=== PATIENT | male | born 1935 | race Caucasian/White ===

== ENCOUNTER 2017-08-04 09:39 | Inpatient (IN) | payer OTHER, BC, MEDICARE ==
[2017-08-04] MEDS: EZETIMIBE 10 MG TAB (ZETIA) PO (09:00)
[2017-08-04] MEDS: ROSUVASTATIN 10 MG TAB (CRESTOR) PO (09:00)
[2017-08-04 10:17] LABS: BASO % 0.2 % (0.0-1.0); EOS % 0.2 % (0.0-3.0); HEMATOCRIT 47.2 % (42.0-52.0); HEMOGLOBIN 15.4 g/dl (13.5-17.5); IMMATURE GRANULOCYTE % 0.5 % (0-3.0); LYMPH # 1.5 10^3/uL (1.5-4.5); LYMPH % 11.2 % (24.0-44.0); MEAN CORPUSCULAR HEMOGLOBIN 28.9 pg (27.0-33.0); MEAN CORPUSCULAR HGB CONC 32.6 g/dl (32.0-36.5); MEAN CORPUSCULAR VOLUME 88.7 fl (80.0-96.0); MONO % 7.8 % (0.0-5.0); NEUTROPHILS # 10.5 10^3/uL (1.8-7.7); NEUTROPHILS % 80.1 % (36.0-66.0); PLATELET COUNT, AUTOMATED 231 10^3/uL (150-450); RED BLOOD COUNT 5.32 10^6/uL (4.30-6.10); RED CELL DISTRIBUTION WIDTH 12.6 % (11.5-14.5); VENOUS HCO3 24.1 MEQ/L (23.0-27.0); VENOUS O2 SATURATION 49.4 % (60.0-80.0); VENOUS PARTIAL PRESSURE CO2 45.7 mmHg (38.0-50.0); VENOUS PARTIAL PRESSURE O2 28.4 mmHg (30.0-50.0); VENOUS STANDARD HCO3 21.5 MEQ/L; VENOUS TOTAL CO2 25.5 MEQ/L (24.0-28.0); WHITE BLOOD COUNT 13.1 10^3/uL (4.0-10.0)
[2017-08-04] MEDS: NS 1,000 ML IV (10:24)
[2017-08-04 10:40] LABS: OSMOLALITY SERUM 302 MOSM/KG (280-301)
[2017-08-04 10:46] LABS: AMMONIA < 10 uMOL/L (<32)
[2017-08-04 10:48] LABS: LACTIC ACID SEPSIS PROTOCOL 1.5 MMOL/L (0.4-2.0)
[2017-08-04 10:49] LABS: ACETAMINOPHEN LEVEL < 2.0 UG/ML (10.0-30.0); ALBUMIN/GLOBULIN RATIO 0.79 (1.00-1.93); ALKALINE PHOSPHATASE 305 U/L (45-117); ALT/SGPT 11 U/L (12-78); ANION GAP 7 MEQ/L (8-16); AST/SGOT 18 U/L (7-37); BILIRUBIN,DIRECT 0.2 MG/DL (0.0-0.2); BILIRUBIN,TOTAL 0.6 MG/DL (0.2-1.0); BLOOD UREA NITROGEN 20 MG/DL (7-18); CALCIUM LEVEL 8.9 MG/DL (8.8-10.2); CARBON DIOXIDE LEVEL 26 MEQ/L (21-32); CHLORIDE LEVEL 104 MEQ/L (98-107); CPK CREATINE PHOSPHOKINASE 83 U/L (39-308); CREATININE FOR GFR 1.88 MG/DL (0.70-1.30); GLOMERULAR FILTRATION RATE 36.8 (>35); GLUCOSE, FASTING 271 MG/DL (70-100); POTASSIUM SERUM 4.6 MEQ/L (3.5-5.1); SALICYLATE LEVEL < 1.7 MG/DL (5.0-30.0); SODIUM LEVEL 137 MEQ/L (136-145); TOTAL PROTEIN 6.8 GM/DL (6.4-8.2)
[2017-08-04 10:51] LABS: ETHYL ALCOHOL (ETHANOL) < 0.003 % (0.000-0.010)
[2017-08-04 10:52] LABS: CK-MB VALUE MASS 7.1 NG/ML (<3.6); MB/CK RELATIVE INDEX 8.55 (< OR =4)
[2017-08-04 10:55] LABS: TROPONIN I 3.23 NG/ML (< 0.10)
[2017-08-04 10:56] LABS: THYROID STIMULATING HORMONE 0.571 uIU/ML (0.358-3.740)
[2017-08-04 11:12] LABS: KETONE, URINE AUTO RFX TRACE mg/dL (NEGATIVE); LEUKOCYTE ESTERASE UR AUTO RFX NEGATIVE (NEGATIVE); MUCUS, URINE RFX SMALL (NEGATIVE); NITRITE, URINE AUTO RFX NEGATIVE (NEGATIVE); RBC, URINE AUTO RFX 2 /HPF (0-3); SQUAM EPITHELIAL CELL UR AURFX 0 /HPF (0-6); WBC, URINE AUTO RFX 1 /HPF (0-3)
[2017-08-04 11:42] LABS: AMPHETAMINES LEVEL URINE NEGATIVE (NEGATIVE); BARBITURATES URINE NEGATIVE (NEGATIVE); BENZODIAZEPINES URINE NEGATIVE (NEGATIVE); CANNABINOIDS URINE NEGATIVE (NEGATIVE); COCAINE METABOLITE URINE NEGATIVE (NEGATIVE); METHADONE URINE NEGATIVE (NEGATIVE); OPIATES URINE NEGATIVE (NEGATIVE); PHENCYCLIDINE URINE NEGATIVE (NEGATIVE)
[2017-08-04] MEDS ORDERED: ASPIRIN 81 MG CHEW TABLET As Ordered (13:12)
[2017-08-04] MEDS: ASPIRIN 81 MG CHEW TABLET PO (13:23)
[2017-08-04 17:13] LABS: BEDSIDE GLUCOSE 294 MG/DL (83-110)
[2017-08-04 19:31] LABS: CHOLESTEROL LEVEL 153 MG/DL (<200); CHOLESTEROL RISK RATIO 4.935 (<5); CK-MB VALUE MASS 5.1 NG/ML (<3.6); CPK CREATINE PHOSPHOKINASE 67 U/L (39-308); HDL CHOLESTEROL 31 MG/DL (>40); MB/CK RELATIVE INDEX 7.61 (< OR =4); NON-HDL-C 122 MG/DL; TRIGLYCERIDES LEVEL 115 MG/DL (<150)
[2017-08-04 19:36] LABS: TROPONIN I 1.85 NG/ML (< 0.10)
[2017-08-04] MEDS ORDERED: DEXTROSE 50% 50 ML SYRINGE IV (20:00)
[2017-08-04] MEDS ORDERED: GLUCAGON FOR INJ 1 MG VIAL (J1610) SC (20:00)
[2017-08-04] MEDS ORDERED: GLUCOSE 4 GM CHEW TABLET PO (20:00)
[2017-08-04] MEDS: HumaLOG INSULIN (NovoLOG) PER UNIT SC (20:38)
[2017-08-04] MEDS: DABIGATRAN ETEXILATE 75 MG CAP (PRADAXA) PO (20:38)
[2017-08-04] MEDS: LEVEMIR (INSULIN DETEMIR) 1 UNITS/0.01ML SC (20:38)
[2017-08-04 21:06] LABS: BEDSIDE GLUCOSE 323 MG/DL (83-110)
[2017-08-05 03:13] LABS: HEMATOCRIT 42.7 % (42.0-52.0); HEMOGLOBIN 14.1 g/dl (13.5-17.5); MEAN CORPUSCULAR HEMOGLOBIN 29.1 pg (27.0-33.0); MEAN CORPUSCULAR VOLUME 88.2 fl (80.0-96.0); PLATELET COUNT, AUTOMATED 189 10^3/uL (150-450); RED BLOOD COUNT 4.84 10^6/uL (4.30-6.10); RED CELL DISTRIBUTION WIDTH 12.5 % (11.5-14.5)
[2017-08-05 03:42] LABS: ANION GAP 6 MEQ/L (8-16); BLOOD UREA NITROGEN 21 MG/DL (7-18); CALCIUM LEVEL 8.4 MG/DL (8.8-10.2); CARBON DIOXIDE LEVEL 24 MEQ/L (21-32); CHLORIDE LEVEL 108 MEQ/L (98-107); CK-MB VALUE MASS 3.9 NG/ML (<3.6); CPK CREATINE PHOSPHOKINASE 51 U/L (39-308); CREATININE FOR GFR 1.43 MG/DL (0.70-1.30); GLOMERULAR FILTRATION RATE 50.5 (>35); GLUCOSE, FASTING 154 MG/DL (70-100); MAGNESIUM LEVEL 2.1 MG/DL (1.8-2.4); MB/CK RELATIVE INDEX 7.64 (< OR =4); POTASSIUM SERUM 3.9 MEQ/L (3.5-5.1); SODIUM LEVEL 138 MEQ/L (136-145)
[2017-08-05 03:59] LABS: TROPONIN I 1.93 NG/ML (< 0.10)
[2017-08-05] MEDS: HumaLOG INSULIN (NovoLOG) PER UNIT SC ×4 (07:25→21:00)
[2017-08-05 07:31] LABS: BEDSIDE GLUCOSE 75 MG/DL (83-110)
[2017-08-05] MEDS: EZETIMIBE 10 MG TAB (ZETIA) PO (08:43)
[2017-08-05] MEDS: ASPIRIN 81 MG CHEW TABLET PO (08:43)
[2017-08-05] MEDS: DABIGATRAN ETEXILATE 75 MG CAP (PRADAXA) PO ×2 (08:43→21:25)
[2017-08-05 10:29] LABS: CK-MB VALUE MASS 2.6 NG/ML (<3.6); CPK CREATINE PHOSPHOKINASE 44 U/L (39-308)
[2017-08-05 10:35] LABS: TROPONIN I 1.57 NG/ML (< 0.10)
[2017-08-05 11:58] LABS: BEDSIDE GLUCOSE 211 MG/DL (83-110)
[2017-08-05 16:45] LABS: C REACTIVE PROTEIN QUANTITATIV 1.34 MG/DL (0.00-0.30)
[2017-08-05] MEDS: PREGABALIN 50 MG CAP (LYRICA) PO (18:25)
[2017-08-05 18:27] LABS: BEDSIDE GLUCOSE 383 MG/DL (83-110)
[2017-08-05 18:51] LABS: ERYTHROCYTE SEDIMENTATION RATE 41 mm/hr (0-20)
[2017-08-05 19:54] LABS: BEDSIDE GLUCOSE 233 MG/DL (83-110)
[2017-08-05] MEDS: ROSUVASTATIN 10 MG TAB (CRESTOR) PO (21:25)
[2017-08-05] MEDS: LEVEMIR (INSULIN DETEMIR) 1 UNITS/0.01ML SC (21:26)
[2017-08-06] MEDS ORDERED: SLF 3 ML SYR IV (04:00)
[2017-08-06 05:26] LABS: HEMATOCRIT 44.3 % (42.0-52.0); HEMOGLOBIN 14.6 g/dl (13.5-17.5); MEAN CORPUSCULAR HEMOGLOBIN 29.2 pg (27.0-33.0); MEAN CORPUSCULAR VOLUME 88.6 fl (80.0-96.0); PLATELET COUNT, AUTOMATED 203 10^3/uL (150-450); RED CELL DISTRIBUTION WIDTH 12.4 % (11.5-14.5); WHITE BLOOD COUNT 11.8 10^3/uL (4.0-10.0)
[2017-08-06 05:40] LABS: ANION GAP 4 MEQ/L (8-16); BLOOD UREA NITROGEN 20 MG/DL (7-18); CALCIUM LEVEL 8.9 MG/DL (8.8-10.2); CARBON DIOXIDE LEVEL 26 MEQ/L (21-32); CHLORIDE LEVEL 105 MEQ/L (98-107); CREATININE FOR GFR 1.42 MG/DL (0.70-1.30); GLOMERULAR FILTRATION RATE 50.9 (>35); GLUCOSE, FASTING 93 MG/DL (70-100); MAGNESIUM LEVEL 2.2 MG/DL (1.8-2.4); POTASSIUM SERUM 4.3 MEQ/L (3.5-5.1); SODIUM LEVEL 135 MEQ/L (136-145)
[2017-08-06] MEDS: SLF 3 ML SYR IV ×3 (05:55→22:04)
[2017-08-06] MEDS: HumaLOG INSULIN (NovoLOG) PER UNIT SC ×4 (09:15→21:00)
[2017-08-06] MEDS: ASPIRIN 81 MG CHEW TABLET PO (09:16)
[2017-08-06] MEDS: PREGABALIN 50 MG CAP (LYRICA) PO (09:16)
[2017-08-06] MEDS: EZETIMIBE 10 MG TAB (ZETIA) PO (09:16)
[2017-08-06] MEDS: DABIGATRAN ETEXILATE 75 MG CAP (PRADAXA) PO ×2 (09:16→21:54)
[2017-08-06 11:27] LABS: BEDSIDE GLUCOSE 319 MG/DL (83-110)
[2017-08-06 17:20] LABS: BEDSIDE GLUCOSE 214 MG/DL (83-110)
[2017-08-06] MEDS: ROSUVASTATIN 10 MG TAB (CRESTOR) PO (21:55)
[2017-08-06 22:05] LABS: BEDSIDE GLUCOSE 137 MG/DL (83-110)
[2017-08-06] MEDS: LEVEMIR (INSULIN DETEMIR) 1 UNITS/0.01ML SC (22:05)
[2017-08-07 05:26] LABS: HEMATOCRIT 41.6 % (42.0-52.0); HEMOGLOBIN 13.9 g/dl (13.5-17.5); MEAN CORPUSCULAR HEMOGLOBIN 29.5 pg (27.0-33.0); MEAN CORPUSCULAR HGB CONC 33.4 g/dl (32.0-36.5); MEAN CORPUSCULAR VOLUME 88.3 fl (80.0-96.0); PLATELET COUNT, AUTOMATED 184 10^3/uL (150-450); RED BLOOD COUNT 4.71 10^6/uL (4.30-6.10); RED CELL DISTRIBUTION WIDTH 12.4 % (11.5-14.5); WHITE BLOOD COUNT 12.6 10^3/uL (4.0-10.0)
[2017-08-07 05:40] LABS: ANION GAP 4 MEQ/L (8-16); BLOOD UREA NITROGEN 19 MG/DL (7-18); CALCIUM LEVEL 8.6 MG/DL (8.8-10.2); CARBON DIOXIDE LEVEL 27 MEQ/L (21-32); CHLORIDE LEVEL 104 MEQ/L (98-107); CREATININE FOR GFR 1.64 MG/DL (0.70-1.30); GLOMERULAR FILTRATION RATE 43.1 (>35); GLUCOSE, FASTING 154 MG/DL (70-100); MAGNESIUM LEVEL 2.2 MG/DL (1.8-2.4); POTASSIUM SERUM 4.5 MEQ/L (3.5-5.1); SODIUM LEVEL 135 MEQ/L (136-145)
[2017-08-07] MEDS: SLF 3 ML SYR IV ×3 (06:00→21:27)
[2017-08-07] MEDS: HumaLOG INSULIN (NovoLOG) PER UNIT SC ×4 (07:38→21:00)
[2017-08-07] MEDS: ASPIRIN 81 MG CHEW TABLET PO (09:39)
[2017-08-07] MEDS: EZETIMIBE 10 MG TAB (ZETIA) PO (09:39)
[2017-08-07] MEDS: DABIGATRAN ETEXILATE 75 MG CAP (PRADAXA) PO ×2 (09:39→21:27)
[2017-08-07] MEDS: NS 1,000 ML IV ×2 (09:40→21:27)
[2017-08-07] MEDS: PREGABALIN 50 MG CAP (LYRICA) PO (10:27)
[2017-08-07 11:51] LABS: BEDSIDE GLUCOSE 539 MG/DL (83-110)
[2017-08-07 12:39] LABS: BEDSIDE GLUCOSE CONFIRMATION 267 MG/DL (LESS THAN 200)
[2017-08-07 17:02] LABS: BEDSIDE GLUCOSE 239 MG/DL (83-110)
[2017-08-07 20:12] LABS: BEDSIDE GLUCOSE 243 MG/DL (83-110)
[2017-08-07] MEDS: ROSUVASTATIN 10 MG TAB (CRESTOR) PO (21:26)
[2017-08-07] MEDS: LEVEMIR (INSULIN DETEMIR) 1 UNITS/0.01ML SC (21:28)
[2017-08-08] MEDS: SLF 3 ML SYR IV ×3 (05:45→22:06)
[2017-08-08 05:50] LABS: HEMATOCRIT 41.3 % (42.0-52.0); HEMOGLOBIN 13.7 g/dl (13.5-17.5); MEAN CORPUSCULAR HEMOGLOBIN 28.5 pg (27.0-33.0); MEAN CORPUSCULAR HGB CONC 33.2 g/dl (32.0-36.5); PLATELET COUNT, AUTOMATED 190 10^3/uL (150-450); RED CELL DISTRIBUTION WIDTH 12.3 % (11.5-14.5); WHITE BLOOD COUNT 13.9 10^3/uL (4.0-10.0)
[2017-08-08 06:07] LABS: ANION GAP 7 MEQ/L (8-16); BLOOD UREA NITROGEN 21 MG/DL (7-18); CALCIUM LEVEL 8.3 MG/DL (8.8-10.2); CARBON DIOXIDE LEVEL 22 MEQ/L (21-32); CHLORIDE LEVEL 105 MEQ/L (98-107); CREATININE FOR GFR 1.44 MG/DL (0.70-1.30); GLOMERULAR FILTRATION RATE 50.1 (>35); GLUCOSE, FASTING 177 MG/DL (70-100); MAGNESIUM LEVEL 2.2 MG/DL (1.8-2.4); POTASSIUM SERUM 4.7 MEQ/L (3.5-5.1); SODIUM LEVEL 134 MEQ/L (136-145)
[2017-08-08] MEDS ORDERED: ISOVUE-300 61% 50ML VIAL (Q9967) As Ordered (06:23)
[2017-08-08] MEDS ORDERED: HEPARIN 1,000 UNITS/ML 10ML VIAL (FOR RADIOLOGY& DIALYSIS ONLY) As Ordered (06:23)
[2017-08-08] MEDS ORDERED: fentaNYL 100 MCG/2 ML INJECTION (J3010) As Ordered (06:23)
[2017-08-08] MEDS ORDERED: MIDAZOLAM INJ 2 MG/2 ML VIAL (J2250) As Ordered (06:23)
[2017-08-08] MEDS: HumaLOG INSULIN (NovoLOG) PER UNIT SC ×4 (07:30→21:00)
[2017-08-08] MEDS: DABIGATRAN ETEXILATE 75 MG CAP (PRADAXA) PO ×2 (10:04→22:05)
[2017-08-08] MEDS: EZETIMIBE 10 MG TAB (ZETIA) PO (10:04)
[2017-08-08] MEDS: ASPIRIN 81 MG CHEW TABLET PO (10:05)
[2017-08-08] MEDS: ENTRESTO 24-26MG TABLET (SACUBITRIL/VALSARTAN) PO ×2 (10:08→22:05)
[2017-08-08] MEDS: PREGABALIN 50 MG CAP (LYRICA) PO (10:12)
[2017-08-08 11:48] LABS: BEDSIDE GLUCOSE 252 MG/DL (83-110)
[2017-08-08] MEDS: CLOPIDOGREL 300 MG TAB (PLAVIX) PO (11:53)
[2017-08-08] MEDS: NS 1,000 ML IV (11:54)
[2017-08-08 16:42] LABS: BEDSIDE GLUCOSE 233 MG/DL (83-110)
[2017-08-08 21:34] LABS: BEDSIDE GLUCOSE 231 MG/DL (83-110)
[2017-08-08] MEDS: ROSUVASTATIN 10 MG TAB (CRESTOR) PO (22:05)
[2017-08-08] MEDS: LEVEMIR (INSULIN DETEMIR) 1 UNITS/0.01ML SC (22:06)
[2017-08-09] MEDS: NS 1,000 ML IV ×2 (00:48→13:30)
[2017-08-09] MEDS: SLF 3 ML SYR IV ×3 (05:51→21:41)
[2017-08-09 07:36] LABS: HEMATOCRIT 38.2 % (42.0-52.0); HEMOGLOBIN 12.7 g/dl (13.5-17.5); MEAN CORPUSCULAR HEMOGLOBIN 29.3 pg (27.0-33.0); MEAN CORPUSCULAR HGB CONC 33.2 g/dl (32.0-36.5); PLATELET COUNT, AUTOMATED 175 10^3/uL (150-450); RED BLOOD COUNT 4.34 10^6/uL (4.30-6.10); RED CELL DISTRIBUTION WIDTH 12.5 % (11.5-14.5); WHITE BLOOD COUNT 13.2 10^3/uL (4.0-10.0)
[2017-08-09 07:59] LABS: ANION GAP 5 MEQ/L (8-16); BLOOD UREA NITROGEN 19 MG/DL (7-18); CALCIUM LEVEL 8.3 MG/DL (8.8-10.2); CARBON DIOXIDE LEVEL 26 MEQ/L (21-32); CHLORIDE LEVEL 107 MEQ/L (98-107); CREATININE FOR GFR 1.53 MG/DL (0.70-1.30); GLOMERULAR FILTRATION RATE 46.7 (>35); GLUCOSE, FASTING 151 MG/DL (70-100); MAGNESIUM LEVEL 2.2 MG/DL (1.8-2.4); POTASSIUM SERUM 4.7 MEQ/L (3.5-5.1); SODIUM LEVEL 138 MEQ/L (136-145)
[2017-08-09 08:21] LABS: BASO % 0.2 % (0.0-1.0); EOS # 0.1 10^3/uL (0.0-0.50); EOS % 0.4 % (0.0-3.0); IMMATURE GRANULOCYTE # 0.1 10^3/uL (0-0); IMMATURE GRANULOCYTE % 0.5 % (0-3.0); LYMPH # 1.4 10^3/uL (1.5-4.5); LYMPH % 10.2 % (24.0-44.0); MONO # 1.5 10^3/uL (0.0-0.8); MONO % 11.4 % (0.0-5.0); NEUTROPHILS # 10.3 10^3/uL (1.8-7.7); NEUTROPHILS % 77.3 % (36.0-66.0)
[2017-08-09 08:24] LABS: DIFF SLIDE NUMBER 14
[2017-08-09] MEDS: HumaLOG INSULIN (NovoLOG) PER UNIT SC ×4 (09:21→21:40)
[2017-08-09] MEDS: CLOPIDOGREL 75 MG TAB PO (09:21)
[2017-08-09] MEDS: ASPIRIN 81 MG CHEW TABLET PO (09:21)
[2017-08-09] MEDS: PREGABALIN 50 MG CAP (LYRICA) PO (09:21)
[2017-08-09] MEDS: EZETIMIBE 10 MG TAB (ZETIA) PO (09:21)
[2017-08-09] MEDS: DABIGATRAN ETEXILATE 75 MG CAP (PRADAXA) PO ×2 (09:21→21:39)
[2017-08-09] MEDS: ENTRESTO 24-26MG TABLET (SACUBITRIL/VALSARTAN) PO ×2 (11:22→21:39)
[2017-08-09 12:27] LABS: BEDSIDE GLUCOSE 287 MG/DL (83-110)
[2017-08-09 17:21] LABS: BEDSIDE GLUCOSE 158 MG/DL (83-110)
[2017-08-09] MEDS: ROSUVASTATIN 10 MG TAB (CRESTOR) PO (21:39)
[2017-08-09] MEDS: LEVEMIR (INSULIN DETEMIR) 1 UNITS/0.01ML SC (21:40)
[2017-08-09 21:52] LABS: BEDSIDE GLUCOSE 216 MG/DL (83-110)
[2017-08-10] MEDS: NS 1,000 ML IV ×2 (02:20→16:26)
[2017-08-10] MEDS: ACETAMINOPHEN TAB 650MG DOSE (2X325MG) PO ×3 (02:28→20:53)
[2017-08-10 04:06] LABS: HEMATOCRIT 36.5 % (42.0-52.0); HEMOGLOBIN 12.2 g/dl (13.5-17.5); MEAN CORPUSCULAR HEMOGLOBIN 29.3 pg (27.0-33.0); MEAN CORPUSCULAR HGB CONC 33.4 g/dl (32.0-36.5); MEAN CORPUSCULAR VOLUME 87.5 fl (80.0-96.0); PLATELET COUNT, AUTOMATED 174 10^3/uL (150-450); RED BLOOD COUNT 4.17 10^6/uL (4.30-6.10); RED CELL DISTRIBUTION WIDTH 12.5 % (11.5-14.5); WHITE BLOOD COUNT 16.7 10^3/uL (4.0-10.0)
[2017-08-10 04:27] LABS: ANION GAP 7 MEQ/L (8-16); BLOOD UREA NITROGEN 22 MG/DL (7-18); CALCIUM LEVEL 7.9 MG/DL (8.8-10.2); CARBON DIOXIDE LEVEL 21 MEQ/L (21-32); CHLORIDE LEVEL 107 MEQ/L (98-107); CREATININE FOR GFR 1.54 MG/DL (0.70-1.30); GLOMERULAR FILTRATION RATE 46.4 (>35); GLUCOSE, FASTING 241 MG/DL (70-100); MAGNESIUM LEVEL 2.2 MG/DL (1.8-2.4); POTASSIUM SERUM 4.4 MEQ/L (3.5-5.1); SODIUM LEVEL 135 MEQ/L (136-145)
[2017-08-10] MEDS: SLF 3 ML SYR IV ×3 (06:00→22:00)
[2017-08-10] MEDS: HumaLOG INSULIN (NovoLOG) PER UNIT SC ×4 (07:49→21:00)
[2017-08-10] MEDS: ENTRESTO 24-26MG TABLET (SACUBITRIL/VALSARTAN) PO ×2 (09:00→20:48)
[2017-08-10] MEDS: CLOPIDOGREL 75 MG TAB PO (09:41)
[2017-08-10] MEDS: VANCOMYCIN HCL 750 MG, VIAL MATE ADAPTER 1 EACH in D5W 250 ML IV ×2 (09:41→21:52)
[2017-08-10] MEDS: ASPIRIN 81 MG CHEW TABLET PO (09:42)
[2017-08-10] MEDS: EZETIMIBE 10 MG TAB (ZETIA) PO (09:42)
[2017-08-10] MEDS: MEROPENEM INJ 1 GM in APPROPRIATE DILUENT 1 EA IV ×2 (09:42→20:40)
[2017-08-10] MEDS: DABIGATRAN ETEXILATE 75 MG CAP (PRADAXA) PO ×2 (09:47→20:48)
[2017-08-10] MEDS: PREGABALIN 50 MG CAP (LYRICA) PO (09:54)
[2017-08-10 11:43] LABS: AMORPHOUS SEDIMENT RFX SMALL (NEGATIVE); KETONE, URINE AUTO RFX NEGATIVE (NEGATIVE); LEUKOCYTE ESTERASE UR AUTO RFX NEGATIVE (NEGATIVE); MUCUS, URINE RFX SMALL (NEGATIVE); NITRITE, URINE AUTO RFX NEGATIVE (NEGATIVE); RBC, URINE AUTO RFX 3 /HPF (0-3); SPECIFIC GRAVITY UR AUTO RFX 1.016 (1.002-1.035); SQUAM EPITHELIAL CELL UR AURFX 0 /HPF (0-6); WBC, URINE AUTO RFX 2 /HPF (0-3)
[2017-08-10 12:03] LABS: BEDSIDE GLUCOSE 154 MG/DL (83-110)
[2017-08-10 12:35] LABS: C REACTIVE PROTEIN QUANTITATIV 4.44 MG/DL (0.00-0.30)
[2017-08-10 16:37] LABS: BEDSIDE GLUCOSE 244 MG/DL (83-110)
[2017-08-10 20:39] LABS: BEDSIDE GLUCOSE 227 MG/DL (83-110)
[2017-08-10] MEDS: ROSUVASTATIN 10 MG TAB (CRESTOR) PO (20:48)
[2017-08-10] MEDS: LEVEMIR (INSULIN DETEMIR) 1 UNITS/0.01ML SC (20:49)
[2017-08-11 04:15] LABS: HEMOGLOBIN 13.1 g/dl (13.5-17.5); MEAN CORPUSCULAR HEMOGLOBIN 28.3 pg (27.0-33.0); MEAN CORPUSCULAR VOLUME 88.6 fl (80.0-96.0); PLATELET COUNT, AUTOMATED 197 10^3/uL (150-450); RED BLOOD COUNT 4.63 10^6/uL (4.30-6.10); RED CELL DISTRIBUTION WIDTH 12.7 % (11.5-14.5); WHITE BLOOD COUNT 13.9 10^3/uL (4.0-10.0)
[2017-08-11 04:30] LABS: ANION GAP 8 MEQ/L (8-16); BLOOD UREA NITROGEN 24 MG/DL (7-18); CALCIUM LEVEL 8.3 MG/DL (8.8-10.2); CARBON DIOXIDE LEVEL 20 MEQ/L (21-32); CHLORIDE LEVEL 106 MEQ/L (98-107); CREATININE FOR GFR 1.76 MG/DL (0.70-1.30); GLOMERULAR FILTRATION RATE 39.8 (>35); GLUCOSE, FASTING 299 MG/DL (70-100); MAGNESIUM LEVEL 2.4 MG/DL (1.8-2.4); POTASSIUM SERUM 4.5 MEQ/L (3.5-5.1); SODIUM LEVEL 134 MEQ/L (136-145)
[2017-08-11] MEDS: SLF 3 ML SYR IV ×3 (06:00→20:50)
[2017-08-11] MEDS: MEROPENEM INJ 1 GM in APPROPRIATE DILUENT 1 EA IV ×2 (07:24→20:49)
[2017-08-11] MEDS: HumaLOG INSULIN (NovoLOG) PER UNIT SC ×4 (07:25→20:55)
[2017-08-11 08:59] LABS: VANCOMYCIN LEVEL TROUGH 9.4 UG/ML (10.0-20.0)
[2017-08-11] MEDS: ENTRESTO 24-26MG TABLET (SACUBITRIL/VALSARTAN) PO ×2 (10:00→20:50)
[2017-08-11] MEDS: ASPIRIN 81 MG CHEW TABLET PO (10:00)
[2017-08-11] MEDS: VANCOMYCIN HCL 750 MG, VIAL MATE ADAPTER 1 EACH in D5W 250 ML IV (10:00)
[2017-08-11] MEDS: PREGABALIN 50 MG CAP (LYRICA) PO (10:01)
[2017-08-11] MEDS: CLOPIDOGREL 75 MG TAB PO (10:01)
[2017-08-11] MEDS: DABIGATRAN ETEXILATE 75 MG CAP (PRADAXA) PO ×2 (10:01→20:50)
[2017-08-11] MEDS: EZETIMIBE 10 MG TAB (ZETIA) PO (10:01)
[2017-08-11 12:23] LABS: BEDSIDE GLUCOSE 266 MG/DL (83-110)
[2017-08-11] MEDS: NS 1,000 ML IV ×2 (14:58→20:48)
[2017-08-11] MEDS: VANCOMYCIN HCL 1,000 MG, VIAL MATE ADAPTER 1 EACH in D5W 250 ML IV (14:59)
[2017-08-11 16:25] LABS: AMORPHOUS SEDIMENT SMALL (NEGATIVE); APPEARANCE, URINE CLOUDY (CLEAR); BACTERIA, URINE AUTO NEGATIVE (NEGATIVE); BILIRUBIN, URINE AUTO NEGATIVE (NEGATIVE); BLOOD, URINE BLOOD 1+ (NEGATIVE); COLOR, URINE YELLOW (YELLOW); GLUCOSE, URINE (UA) AUTO 3+ mg/dL (NEGATIVE); KETONE, URINE AUTO NEGATIVE (NEGATIVE); LEUKOCYTE ESTERASE, URINE AUTO NEGATIVE (NEGATIVE); MUCUS, URINE SMALL (NEGATIVE); NITRITE, URINE AUTO NEGATIVE (NEGATIVE); PROTEIN, URINE AUTO 3+ mg/dL (NEGATIVE); RBC, URINE AUTO 3 /HPF (0-3); SPECIFIC GRAVITY URINE AUTO 1.026 (1.002-1.035); SQUAMOUS EPITHELIAL CELL UR AU 0 /HPF (0-6); UROBILINOGEN, URINE AUTO 0.2 mg/dL (0.0-2.0); WBC, URINE AUTO 1 /HPF (0-3)
[2017-08-11 16:41] LABS: CHLORIDE,RANDOM URINE 47 MEQ/L; POTASSIUM RANDOM URINE 33.7 MEQ/L; SODIUM,RANDOM URINE 32 MEQ/L; TOTAL PROTEIN,RANDOM URINE 247.3 MG/DL (0.0-12.0)
[2017-08-11 17:24] LABS: BEDSIDE GLUCOSE 201 MG/DL (83-110)
[2017-08-11 17:48] LABS: OSMOLALITY URINE 668 MOSM/KG (500-800)
[2017-08-11 20:40] LABS: BEDSIDE GLUCOSE 237 MG/DL (83-110)
[2017-08-11] MEDS: LEVEMIR (INSULIN DETEMIR) 1 UNITS/0.01ML SC (20:49)
[2017-08-11] MEDS: ROSUVASTATIN 10 MG TAB (CRESTOR) PO (20:50)
[2017-08-12] MEDS: SLF 3 ML SYR IV ×3 (05:52→22:01)
[2017-08-12 06:03] LABS: BEDSIDE GLUCOSE 142 MG/DL (83-110)
[2017-08-12 08:11] LABS: HEMATOCRIT 35.2 % (42.0-52.0); HEMOGLOBIN 11.8 g/dl (13.5-17.5); MEAN CORPUSCULAR HEMOGLOBIN 29.1 pg (27.0-33.0); MEAN CORPUSCULAR HGB CONC 33.5 g/dl (32.0-36.5); MEAN CORPUSCULAR VOLUME 86.7 fl (80.0-96.0); PLATELET COUNT, AUTOMATED 183 10^3/uL (150-450); RED BLOOD COUNT 4.06 10^6/uL (4.30-6.10)
[2017-08-12] MEDS: NS 1,000 ML IV (08:14)
[2017-08-12] MEDS: HumaLOG INSULIN (NovoLOG) PER UNIT SC ×4 (08:14→21:00)
[2017-08-12] MEDS: MEROPENEM INJ 1 GM in APPROPRIATE DILUENT 1 EA IV (08:14)
[2017-08-12] MEDS: ASPIRIN 81 MG CHEW TABLET PO (08:15)
[2017-08-12] MEDS: PREGABALIN 50 MG CAP (LYRICA) PO (08:15)
[2017-08-12] MEDS: EZETIMIBE 10 MG TAB (ZETIA) PO (08:15)
[2017-08-12] MEDS: CLOPIDOGREL 75 MG TAB PO (08:15)
[2017-08-12] MEDS: ENTRESTO 24-26MG TABLET (SACUBITRIL/VALSARTAN) PO ×2 (08:15→22:00)
[2017-08-12] MEDS: DABIGATRAN ETEXILATE 75 MG CAP (PRADAXA) PO ×2 (08:15→22:00)
[2017-08-12 08:25] LABS: ANION GAP 6 MEQ/L (8-16); BLOOD UREA NITROGEN 23 MG/DL (7-18); CALCIUM LEVEL 8.1 MG/DL (8.8-10.2); CARBON DIOXIDE LEVEL 21 MEQ/L (21-32); CHLORIDE LEVEL 112 MEQ/L (98-107); CREATININE FOR GFR 1.48 MG/DL (0.70-1.30); GLOMERULAR FILTRATION RATE 48.6 (>35); GLUCOSE, FASTING 137 MG/DL (70-100); MAGNESIUM LEVEL 2.4 MG/DL (1.8-2.4); POTASSIUM SERUM 4.6 MEQ/L (3.5-5.1); SODIUM LEVEL 139 MEQ/L (136-145)
[2017-08-12 08:29] LABS: VANCOMYCIN LEVEL TROUGH 8.8 UG/ML (10.0-20.0)
[2017-08-12] MEDS: VANCOMYCIN HCL 1,000 MG, VIAL MATE ADAPTER 1 EACH in D5W 250 ML IV (09:18)
[2017-08-12] MEDS: VANCOMYCIN HCL 500 MG in D5W MINI-BAG PLUS 100 ML IV (12:00)
[2017-08-12 12:23] LABS: BEDSIDE GLUCOSE 269 MG/DL (83-110)
[2017-08-12 17:21] LABS: BEDSIDE GLUCOSE 121 MG/DL (83-110)
[2017-08-12] MEDS: LIDOCAINE 1% SDV INJ 30 ML VIAL As Ordered (19:53)
[2017-08-12] MEDS: BUPIVACAINE HCL 0.5% 30 ML VIAL As Ordered (19:53)
[2017-08-12 21:07] LABS: BEDSIDE GLUCOSE 109 MG/DL (83-110)
[2017-08-12] MEDS: LEVEMIR (INSULIN DETEMIR) 1 UNITS/0.01ML SC (22:00)
[2017-08-12] MEDS: ROSUVASTATIN 10 MG TAB (CRESTOR) PO (22:00)
[2017-08-13] MEDS: NS 1,000 ML IV (00:24)
[2017-08-13] MEDS: CEPACOL LOZENGE PO ×3 (04:57→12:20)
[2017-08-13] MEDS: SLF 3 ML SYR IV ×3 (05:16→22:22)
[2017-08-13 05:49] LABS: HEMATOCRIT 36.8 % (42.0-52.0); HEMOGLOBIN 12.3 g/dl (13.5-17.5); MEAN CORPUSCULAR HEMOGLOBIN 29.2 pg (27.0-33.0); MEAN CORPUSCULAR HGB CONC 33.4 g/dl (32.0-36.5); MEAN CORPUSCULAR VOLUME 87.4 fl (80.0-96.0); PLATELET COUNT, AUTOMATED 208 10^3/uL (150-450); RED BLOOD COUNT 4.21 10^6/uL (4.30-6.10); WHITE BLOOD COUNT 13.9 10^3/uL (4.0-10.0)
[2017-08-13] MEDS ORDERED: NS 1,000 ML IV (06:00)
[2017-08-13 06:07] LABS: ERYTHROCYTE SEDIMENTATION RATE 56 mm/hr (0-20)
[2017-08-13 06:14] LABS: ANION GAP 4 MEQ/L (8-16); BLOOD UREA NITROGEN 23 MG/DL (7-18); C REACTIVE PROTEIN QUANTITATIV 4.21 MG/DL (0.00-0.30); CALCIUM LEVEL 8.4 MG/DL (8.8-10.2); CARBON DIOXIDE LEVEL 23 MEQ/L (21-32); CHLORIDE LEVEL 108 MEQ/L (98-107); GLOMERULAR FILTRATION RATE 47.8 (>35); GLUCOSE, FASTING 124 MG/DL (70-100); MAGNESIUM LEVEL 2.3 MG/DL (1.8-2.4); POTASSIUM SERUM 4.6 MEQ/L (3.5-5.1); SODIUM LEVEL 135 MEQ/L (136-145)
[2017-08-13] MEDS: HumaLOG INSULIN (NovoLOG) PER UNIT SC ×4 (07:34→21:00)
[2017-08-13] MEDS: PREGABALIN 50 MG CAP (LYRICA) PO (08:42)
[2017-08-13] MEDS: EZETIMIBE 10 MG TAB (ZETIA) PO (08:42)
[2017-08-13] MEDS: ASPIRIN 81 MG CHEW TABLET PO (08:42)
[2017-08-13] MEDS: CLOPIDOGREL 75 MG TAB PO (08:42)
[2017-08-13] MEDS: DABIGATRAN ETEXILATE 75 MG CAP (PRADAXA) PO ×2 (08:43→22:22)
[2017-08-13] MEDS: ENTRESTO 24-26MG TABLET (SACUBITRIL/VALSARTAN) PO ×2 (08:43→22:21)
[2017-08-13 11:57] LABS: BEDSIDE GLUCOSE 189 MG/DL (83-110)
[2017-08-13] MEDS: ACETAMINOPHEN TAB 650MG DOSE (2X325MG) PO ×2 (12:21→17:30)
[2017-08-13 17:25] LABS: BEDSIDE GLUCOSE 195 MG/DL (83-110)
[2017-08-13] MEDS: NORCO, ANEXSIA 5/325MG TABLET (HYDROcodone/ACETAMINOPHEN) PO ×2 (18:31→22:25)
[2017-08-13] MEDS: VANCOMYCIN HCL 1,000 MG, VIAL MATE ADAPTER 1 EACH in D5W 250 ML IV (22:17)
[2017-08-13] MEDS: ROSUVASTATIN 10 MG TAB (CRESTOR) PO (22:21)
[2017-08-13] MEDS: LEVEMIR (INSULIN DETEMIR) 1 UNITS/0.01ML SC (22:22)
[2017-08-14] MEDS: NORCO, ANEXSIA 5/325MG TABLET (HYDROcodone/ACETAMINOPHEN) PO ×2 (03:25→12:59)
[2017-08-14] MEDS: SLF 3 ML SYR IV ×3 (05:29→21:39)
[2017-08-14 06:13] LABS: HEMOGLOBIN 12.5 g/dl (13.5-17.5); MEAN CORPUSCULAR HEMOGLOBIN 29.1 pg (27.0-33.0); MEAN CORPUSCULAR HGB CONC 32.9 g/dl (32.0-36.5); MEAN CORPUSCULAR VOLUME 88.6 fl (80.0-96.0); PLATELET COUNT, AUTOMATED 222 10^3/uL (150-450); RED BLOOD COUNT 4.29 10^6/uL (4.30-6.10); RED CELL DISTRIBUTION WIDTH 12.8 % (11.5-14.5); WHITE BLOOD COUNT 9.8 10^3/uL (4.0-10.0)
[2017-08-14 06:19] LABS: ANION GAP 6 MEQ/L (8-16); BLOOD UREA NITROGEN 22 MG/DL (7-18); CALCIUM LEVEL 8.2 MG/DL (8.8-10.2); CARBON DIOXIDE LEVEL 23 MEQ/L (21-32); CHLORIDE LEVEL 109 MEQ/L (98-107); GLOMERULAR FILTRATION RATE 51.8 (>35); GLUCOSE, FASTING 102 MG/DL (70-100); MAGNESIUM LEVEL 2.2 MG/DL (1.8-2.4); POTASSIUM SERUM 4.2 MEQ/L (3.5-5.1); SODIUM LEVEL 138 MEQ/L (136-145)
[2017-08-14] MEDS: HumaLOG INSULIN (NovoLOG) PER UNIT SC ×4 (07:32→20:55)
[2017-08-14 09:07] LABS: BEDSIDE GLUCOSE 217 MG/DL (83-110)
[2017-08-14 09:07] LABS: BEDSIDE GLUCOSE > 600 MG/DL (83-110)
[2017-08-14] MEDS: EZETIMIBE 10 MG TAB (ZETIA) PO (09:19)
[2017-08-14] MEDS: CLOPIDOGREL 75 MG TAB PO (09:19)
[2017-08-14] MEDS: ASPIRIN 81 MG CHEW TABLET PO (09:19)
[2017-08-14] MEDS: DABIGATRAN ETEXILATE 75 MG CAP (PRADAXA) PO ×2 (09:20→21:09)
[2017-08-14] MEDS: ENTRESTO 24-26MG TABLET (SACUBITRIL/VALSARTAN) PO ×2 (09:20→21:10)
[2017-08-14] MEDS: PREGABALIN 50 MG CAP (LYRICA) PO (09:21)
[2017-08-14 11:55] LABS: BEDSIDE GLUCOSE 132 MG/DL (83-110)
[2017-08-14] MEDS: VANCOMYCIN HCL 1,000 MG, VIAL MATE ADAPTER 1 EACH in D5W 250 ML IV (12:13)
[2017-08-14 17:28] LABS: BEDSIDE GLUCOSE 229 MG/DL (83-110)
[2017-08-14 20:59] LABS: BEDSIDE GLUCOSE 148 MG/DL (83-110)
[2017-08-14] MEDS: LEVEMIR (INSULIN DETEMIR) 1 UNITS/0.01ML SC (21:10)
[2017-08-14] MEDS: ROSUVASTATIN 10 MG TAB (CRESTOR) PO (21:10)
[2017-08-15] MEDS: SLF 3 ML SYR IV ×3 (05:43→21:57)
[2017-08-15 07:43] LABS: BEDSIDE GLUCOSE 116 MG/DL (83-110)
[2017-08-15 08:07] LABS: HEMATOCRIT 43.5 % (42.0-52.0); HEMOGLOBIN 14.2 g/dl (13.5-17.5); MEAN CORPUSCULAR HEMOGLOBIN 28.6 pg (27.0-33.0); MEAN CORPUSCULAR HGB CONC 32.6 g/dl (32.0-36.5); MEAN CORPUSCULAR VOLUME 87.5 fl (80.0-96.0); PLATELET COUNT, AUTOMATED 312 10^3/uL (150-450); RED BLOOD COUNT 4.97 10^6/uL (4.30-6.10); RED CELL DISTRIBUTION WIDTH 12.9 % (11.5-14.5); WHITE BLOOD COUNT 13.1 10^3/uL (4.0-10.0)
[2017-08-15] MEDS: HumaLOG INSULIN (NovoLOG) PER UNIT SC ×4 (08:45→21:00)
[2017-08-15] MEDS: ASPIRIN 81 MG CHEW TABLET PO (08:45)
[2017-08-15] MEDS: EZETIMIBE 10 MG TAB (ZETIA) PO (08:46)
[2017-08-15] MEDS: CLOPIDOGREL 75 MG TAB PO (08:46)
[2017-08-15] MEDS: DABIGATRAN ETEXILATE 75 MG CAP (PRADAXA) PO ×2 (08:47→21:57)
[2017-08-15] MEDS: ENTRESTO 24-26MG TABLET (SACUBITRIL/VALSARTAN) PO ×2 (08:47→21:57)
[2017-08-15] MEDS: PREGABALIN 50 MG CAP (LYRICA) PO (08:47)
[2017-08-15 08:51] LABS: ANION GAP 7 MEQ/L (8-16); BLOOD UREA NITROGEN 20 MG/DL (7-18); C REACTIVE PROTEIN QUANTITATIV 3.53 MG/DL (0.00-0.30); CALCIUM LEVEL 8.3 MG/DL (8.8-10.2); CARBON DIOXIDE LEVEL 25 MEQ/L (21-32); CHLORIDE LEVEL 107 MEQ/L (98-107); CREATININE FOR GFR 1.52 MG/DL (0.70-1.30); GLOMERULAR FILTRATION RATE 47.1 (>35); GLUCOSE, FASTING 176 MG/DL (70-100); MAGNESIUM LEVEL 2.2 MG/DL (1.8-2.4); POTASSIUM SERUM 4.6 MEQ/L (3.5-5.1); SODIUM LEVEL 139 MEQ/L (136-145)
[2017-08-15 11:24] LABS: VANCOMYCIN LEVEL TROUGH 7.2 UG/ML (10.0-20.0)
[2017-08-15 12:07] LABS: BEDSIDE GLUCOSE 179 MG/DL (83-110)
[2017-08-15] MEDS: VANCOMYCIN HCL 1,000 MG, VIAL MATE ADAPTER 1 EACH in D5W 250 ML IV (12:17)
[2017-08-15 16:49] LABS: BEDSIDE GLUCOSE 189 MG/DL (83-110)
[2017-08-15] MEDS: LEVEMIR (INSULIN DETEMIR) 1 UNITS/0.01ML SC (21:00)
[2017-08-15 21:31] LABS: BEDSIDE GLUCOSE 229 MG/DL (83-110)
[2017-08-15] MEDS: ROSUVASTATIN 10 MG TAB (CRESTOR) PO (21:57)
[2017-08-16] MEDS: SLF 3 ML SYR IV ×3 (05:46→22:20)
[2017-08-16 05:52] LABS: HEMATOCRIT 38.6 % (42.0-52.0); HEMOGLOBIN 12.8 g/dl (13.5-17.5); MEAN CORPUSCULAR HEMOGLOBIN 28.8 pg (27.0-33.0); MEAN CORPUSCULAR HGB CONC 33.2 g/dl (32.0-36.5); MEAN CORPUSCULAR VOLUME 86.9 fl (80.0-96.0); PLATELET COUNT, AUTOMATED 279 10^3/uL (150-450); RED BLOOD COUNT 4.44 10^6/uL (4.30-6.10); RED CELL DISTRIBUTION WIDTH 12.8 % (11.5-14.5); WHITE BLOOD COUNT 12.7 10^3/uL (4.0-10.0)
[2017-08-16 06:08] LABS: ANION GAP 6 MEQ/L (8-16); BLOOD UREA NITROGEN 21 MG/DL (7-18); C REACTIVE PROTEIN QUANTITATIV 2.16 MG/DL (0.00-0.30); CALCIUM LEVEL 8.5 MG/DL (8.8-10.2); CARBON DIOXIDE LEVEL 27 MEQ/L (21-32); CHLORIDE LEVEL 107 MEQ/L (98-107); CREATININE FOR GFR 1.39 MG/DL (0.70-1.30); GLOMERULAR FILTRATION RATE 52.2 (>35); GLUCOSE, FASTING 77 MG/DL (70-100); MAGNESIUM LEVEL 2.3 MG/DL (1.8-2.4); POTASSIUM SERUM 4.3 MEQ/L (3.5-5.1); SODIUM LEVEL 140 MEQ/L (136-145)
[2017-08-16] MEDS: HumaLOG INSULIN (NovoLOG) PER UNIT SC ×4 (07:30→21:00)
[2017-08-16] MEDS: ASPIRIN 81 MG CHEW TABLET PO (08:56)
[2017-08-16] MEDS: CLOPIDOGREL 75 MG TAB PO (08:56)
[2017-08-16] MEDS: DABIGATRAN ETEXILATE 75 MG CAP (PRADAXA) PO (08:57)
[2017-08-16] MEDS: EZETIMIBE 10 MG TAB (ZETIA) PO (08:57)
[2017-08-16] MEDS: PREGABALIN 50 MG CAP (LYRICA) PO (08:57)
[2017-08-16] MEDS: ENTRESTO 24-26MG TABLET (SACUBITRIL/VALSARTAN) PO ×2 (08:57→22:20)
[2017-08-16] MEDS: VANCOMYCIN HCL 1,000 MG, VIAL MATE ADAPTER 1 EACH in D5W 250 ML IV ×2 (12:40)
[2017-08-16 13:16] LABS: BEDSIDE GLUCOSE 186 MG/DL (83-110)
[2017-08-16] MEDS ORDERED: PROPOFOL 200 MG/20 ML VIAL As Ordered ×5 (16:06→18:48)
[2017-08-16] MEDS ORDERED: MIDAZOLAM INJ 2 MG/2 ML VIAL (J2250) As Ordered (16:06)
[2017-08-16] MEDS ORDERED: LIDOCAINE 2% INJ 100 MG/5 ML SDV (FOR ANES.) As Ordered (16:06)
[2017-08-16] MEDS ORDERED: fentaNYL 100 MCG/2 ML INJECTION (J3010) As Ordered (16:07)
[2017-08-16] MEDS: BUPIVACAINE HCL 0.5% 30 ML VIAL As Ordered (16:36)
[2017-08-16 16:48] LABS: BEDSIDE GLUCOSE 129 MG/DL (83-110)
[2017-08-16] MEDS ORDERED: HEPARIN SOD (PORCINE) 5000 UNITS/ML VIAL As Ordered (17:19)
[2017-08-16] MEDS ORDERED: PHENYLephrine HCL 500 MCG/5 ML (100MCG/ML) SYRINGE (J2370) As Ordered (17:22)
[2017-08-16] MEDS: THROMBIN SOLN 20,000 UNITS KIT As Ordered (17:23)
[2017-08-16] MEDS ORDERED: PHENYLEPHRINE INJ 10MG/ML VIAL (J2370) As Ordered ×2 (17:41→20:25)
[2017-08-16 19:59] LABS: HEMATOCRIT 34.8 % (42.0-52.0); HEMOGLOBIN 11.4 g/dl (13.5-17.5); MEAN CORPUSCULAR HEMOGLOBIN 28.8 pg (27.0-33.0); MEAN CORPUSCULAR HGB CONC 32.8 g/dl (32.0-36.5); MEAN CORPUSCULAR VOLUME 87.9 fl (80.0-96.0); PLATELET COUNT, AUTOMATED 312 10^3/uL (150-450); RED BLOOD COUNT 3.96 10^6/uL (4.30-6.10); RED CELL DISTRIBUTION WIDTH 12.9 % (11.5-14.5); WHITE BLOOD COUNT 14.6 10^3/uL (4.0-10.0)
[2017-08-16] MEDS: HEPARIN SOD (PORCINE) 5000 UNITS/ML VIAL As Ordered (20:01)
[2017-08-16] MEDS: LIDOCAINE 1% SDV INJ 30 ML VIAL As Ordered (20:01)
[2017-08-16 20:39] LABS: ANION GAP 5 MEQ/L (8-16); BLOOD UREA NITROGEN 18 MG/DL (7-18); C REACTIVE PROTEIN QUANTITATIV 1.68 MG/DL (0.00-0.30); CARBON DIOXIDE LEVEL 27 MEQ/L (21-32); CHLORIDE LEVEL 108 MEQ/L (98-107); CREATININE FOR GFR 1.39 MG/DL (0.70-1.30); GLOMERULAR FILTRATION RATE 52.2 (>35); GLUCOSE, FASTING 174 MG/DL (70-100); SODIUM LEVEL 140 MEQ/L (136-145)
[2017-08-16] MEDS ORDERED: fentaNYL 100 MCG/2 ML INJECTION (J3010) IV (20:45)
[2017-08-16] MEDS ORDERED: ONDANSETRON 4MG/2ML VIAL (J2405) IV (20:45)
[2017-08-16] MEDS: LR 1,000 ML IV (20:45)
[2017-08-16] MEDS ORDERED: PHENYLEPHRINE INJ 10MG/ML VIAL (J2370) IV (20:45)
[2017-08-16] MEDS ORDERED: PERCOCET 5MG/325MG TAB PO (20:45)
[2017-08-16 20:51] LABS: POTASSIUM SERUM 5.4 MEQ/L (3.5-5.1)
[2017-08-16 20:53] LABS: BEDSIDE GLUCOSE 147 MG/DL (83-110)
[2017-08-16] MEDS: LEVEMIR (INSULIN DETEMIR) 1 UNITS/0.01ML SC (21:00)
[2017-08-16] MEDS: ROSUVASTATIN 10 MG TAB (CRESTOR) PO (22:20)
[2017-08-16 23:45] LABS: HEMATOCRIT 34.4 % (42.0-52.0); HEMOGLOBIN 11.1 g/dl (13.5-17.5); MEAN CORPUSCULAR HEMOGLOBIN 29.1 pg (27.0-33.0); MEAN CORPUSCULAR HGB CONC 32.3 g/dl (32.0-36.5); MEAN CORPUSCULAR VOLUME 90.3 fl (80.0-96.0); PLATELET COUNT, AUTOMATED 264 10^3/uL (150-450); RED BLOOD COUNT 3.81 10^6/uL (4.30-6.10); RED CELL DISTRIBUTION WIDTH 13.1 % (11.5-14.5); WHITE BLOOD COUNT 21.3 10^3/uL (4.0-10.0)
[2017-08-17] MEDS: DABIGATRAN ETEXILATE 75 MG CAP (PRADAXA) PO ×3 (00:31→20:19)
[2017-08-17] MEDS: VANCOMYCIN HCL 1,000 MG, VIAL MATE ADAPTER 1 EACH in D5W 250 ML IV ×2 (00:45→20:19)
[2017-08-17 04:34] LABS: HEMATOCRIT 34.3 % (42.0-52.0); HEMOGLOBIN 11.2 g/dl (13.5-17.5); MEAN CORPUSCULAR HEMOGLOBIN 28.9 pg (27.0-33.0); MEAN CORPUSCULAR HGB CONC 32.7 g/dl (32.0-36.5); MEAN CORPUSCULAR VOLUME 88.4 fl (80.0-96.0); PLATELET COUNT, AUTOMATED 264 10^3/uL (150-450); RED BLOOD COUNT 3.88 10^6/uL (4.30-6.10); WHITE BLOOD COUNT 16.6 10^3/uL (4.0-10.0)
[2017-08-17 04:50] LABS: ANION GAP 10 MEQ/L (8-16); BLOOD UREA NITROGEN 24 MG/DL (7-18); CALCIUM LEVEL 8.5 MG/DL (8.8-10.2); CARBON DIOXIDE LEVEL 22 MEQ/L (21-32); CHLORIDE LEVEL 104 MEQ/L (98-107); CREATININE FOR GFR 1.64 MG/DL (0.70-1.30); GLOMERULAR FILTRATION RATE 43.1 (>35); GLUCOSE, FASTING 239 MG/DL (70-100); MAGNESIUM LEVEL 2.1 MG/DL (1.8-2.4); SODIUM LEVEL 136 MEQ/L (136-145)
[2017-08-17 04:56] LABS: POTASSIUM SERUM 5.2 MEQ/L (3.5-5.1)
[2017-08-17] MEDS: SLF 3 ML SYR IV ×3 (06:00→20:20)
[2017-08-17] MEDS: HumaLOG INSULIN (NovoLOG) PER UNIT SC ×4 (08:10→20:18)
[2017-08-17 08:14] LABS: BEDSIDE GLUCOSE 238 MG/DL (83-110)
[2017-08-17] MEDS: ENTRESTO 24-26MG TABLET (SACUBITRIL/VALSARTAN) PO ×2 (09:18→20:19)
[2017-08-17] MEDS: ASPIRIN 81 MG CHEW TABLET PO (09:18)
[2017-08-17] MEDS: PREGABALIN 50 MG CAP (LYRICA) PO (09:18)
[2017-08-17] MEDS: EZETIMIBE 10 MG TAB (ZETIA) PO (09:18)
[2017-08-17] MEDS: CLOPIDOGREL 75 MG TAB PO (09:18)
[2017-08-17 11:27] LABS: VANCOMYCIN LEVEL TROUGH 24.2 UG/ML (10.0-20.0)
[2017-08-17 11:53] LABS: BEDSIDE GLUCOSE 345 MG/DL (83-110)
[2017-08-17 17:31] LABS: BEDSIDE GLUCOSE 326 MG/DL (83-110)
[2017-08-17 20:11] LABS: BEDSIDE GLUCOSE 342 MG/DL (83-110)
[2017-08-17] MEDS: ROSUVASTATIN 10 MG TAB (CRESTOR) PO (20:19)
[2017-08-17] MEDS: LEVEMIR (INSULIN DETEMIR) 1 UNITS/0.01ML SC (20:19)
[2017-08-18 04:34] LABS: HEMATOCRIT 29.1 % (42.0-52.0); HEMOGLOBIN 9.5 g/dl (13.5-17.5); MEAN CORPUSCULAR HEMOGLOBIN 29.1 pg (27.0-33.0); MEAN CORPUSCULAR HGB CONC 32.6 g/dl (32.0-36.5); PLATELET COUNT, AUTOMATED 254 10^3/uL (150-450); RED BLOOD COUNT 3.27 10^6/uL (4.30-6.10); RED CELL DISTRIBUTION WIDTH 12.9 % (11.5-14.5); WHITE BLOOD COUNT 15.8 10^3/uL (4.0-10.0)
[2017-08-18 04:51] LABS: ANION GAP 4 MEQ/L (8-16); BLOOD UREA NITROGEN 28 MG/DL (7-18); C REACTIVE PROTEIN QUANTITATIV 4.72 MG/DL (0.00-0.30); CALCIUM LEVEL 7.9 MG/DL (8.8-10.2); CARBON DIOXIDE LEVEL 27 MEQ/L (21-32); CHLORIDE LEVEL 109 MEQ/L (98-107); CREATININE FOR GFR 1.64 MG/DL (0.70-1.30); GLOMERULAR FILTRATION RATE 43.1 (>35); GLUCOSE, FASTING 94 MG/DL (70-100); MAGNESIUM LEVEL 2.5 MG/DL (1.8-2.4); POTASSIUM SERUM 4.4 MEQ/L (3.5-5.1); SODIUM LEVEL 140 MEQ/L (136-145)
[2017-08-18] MEDS: SLF 3 ML SYR IV ×3 (06:00→21:36)
[2017-08-18] MEDS: HumaLOG INSULIN (NovoLOG) PER UNIT SC ×4 (07:30→21:35)
[2017-08-18] MEDS: ASPIRIN 81 MG CHEW TABLET PO (08:26)
[2017-08-18] MEDS: CLOPIDOGREL 75 MG TAB PO (08:27)
[2017-08-18] MEDS: EZETIMIBE 10 MG TAB (ZETIA) PO (08:27)
[2017-08-18] MEDS: ENTRESTO 24-26MG TABLET (SACUBITRIL/VALSARTAN) PO ×2 (08:27→21:34)
[2017-08-18] MEDS: DABIGATRAN ETEXILATE 75 MG CAP (PRADAXA) PO ×2 (08:27→21:35)
[2017-08-18 11:47] LABS: BEDSIDE GLUCOSE 182 MG/DL (83-110)
[2017-08-18] MEDS: PREGABALIN 50 MG CAP (LYRICA) PO (13:17)
[2017-08-18] MEDS: VANCOMYCIN HCL 1,000 MG, VIAL MATE ADAPTER 1 EACH in D5W 250 ML IV (14:51)
[2017-08-18 17:28] LABS: BEDSIDE GLUCOSE 465 MG/DL (83-110)
[2017-08-18 17:28] LABS: BEDSIDE GLUCOSE 438 MG/DL (83-110)
[2017-08-18 21:20] LABS: BEDSIDE GLUCOSE 338 MG/DL (83-110)
[2017-08-18] MEDS: LEVEMIR (INSULIN DETEMIR) 1 UNITS/0.01ML SC (21:35)
[2017-08-18] MEDS: ROSUVASTATIN 10 MG TAB (CRESTOR) PO (21:35)
[2017-08-19] MEDS: SLF 3 ML SYR IV ×3 (05:31→21:53)
[2017-08-19 06:47] LABS: BASO % 0.2 % (0.0-1.0); EOS # 0.1 10^3/uL (0.0-0.50); HEMATOCRIT 25.6 % (42.0-52.0); HEMOGLOBIN 8.4 g/dl (13.5-17.5); IMMATURE GRANULOCYTE % 1.3 % (0-3.0); LYMPH # 2.4 10^3/uL (1.5-4.5); LYMPH % 17.7 % (24.0-44.0); MEAN CORPUSCULAR HEMOGLOBIN 28.9 pg (27.0-33.0); MEAN CORPUSCULAR HGB CONC 32.8 g/dl (32.0-36.5); MONO # 1.4 10^3/uL (0.0-0.8); MONO % 10.1 % (0.0-5.0); NEUTROPHILS # 9.4 10^3/uL (1.8-7.7); NEUTROPHILS % 69.7 % (36.0-66.0); PLATELET COUNT, AUTOMATED 241 10^3/uL (150-450); RED BLOOD COUNT 2.91 10^6/uL (4.30-6.10); RED CELL DISTRIBUTION WIDTH 13.1 % (11.5-14.5); WHITE BLOOD COUNT 13.5 10^3/uL (4.0-10.0)
[2017-08-19 07:12] LABS: VANCOMYCIN LEVEL TROUGH 20.2 UG/ML (10.0-20.0)
[2017-08-19 07:23] LABS: ANION GAP 5 MEQ/L (8-16); BLOOD UREA NITROGEN 25 MG/DL (7-18); C REACTIVE PROTEIN QUANTITATIV 4.55 MG/DL (0.00-0.30); CARBON DIOXIDE LEVEL 25 MEQ/L (21-32); CHLORIDE LEVEL 111 MEQ/L (98-107); CREATININE FOR GFR 1.57 MG/DL (0.70-1.30); GLOMERULAR FILTRATION RATE 45.4 (>35); GLUCOSE, FASTING 112 MG/DL (70-100); MAGNESIUM LEVEL 2.4 MG/DL (1.8-2.4); POTASSIUM SERUM 4.2 MEQ/L (3.5-5.1); SODIUM LEVEL 141 MEQ/L (136-145)
[2017-08-19] MEDS: VANCOMYCIN HCL 1,000 MG, VIAL MATE ADAPTER 1 EACH in D5W 250 ML IV (09:09)
[2017-08-19] MEDS: PREGABALIN 50 MG CAP (LYRICA) PO (09:10)
[2017-08-19] MEDS: DABIGATRAN ETEXILATE 75 MG CAP (PRADAXA) PO ×2 (09:10→21:00)
[2017-08-19] MEDS: ASPIRIN 81 MG CHEW TABLET PO (09:10)
[2017-08-19] MEDS: CLOPIDOGREL 75 MG TAB PO (09:10)
[2017-08-19] MEDS: ENTRESTO 24-26MG TABLET (SACUBITRIL/VALSARTAN) PO ×2 (09:10→21:00)
[2017-08-19] MEDS: EZETIMIBE 10 MG TAB (ZETIA) PO (09:11)
[2017-08-19] MEDS: NORCO, ANEXSIA 5/325MG TABLET (HYDROcodone/ACETAMINOPHEN) PO ×3 (09:11→21:01)
[2017-08-19] MEDS: HumaLOG INSULIN (NovoLOG) PER UNIT SC ×4 (09:12→21:53)
[2017-08-19 11:21] LABS: BEDSIDE GLUCOSE 232 MG/DL (83-110)
[2017-08-19 16:50] LABS: BEDSIDE GLUCOSE 242 MG/DL (83-110)
[2017-08-19 20:24] LABS: BEDSIDE GLUCOSE 310 MG/DL (83-110)
[2017-08-19] MEDS: ROSUVASTATIN 10 MG TAB (CRESTOR) PO (21:00)
[2017-08-19] MEDS: LEVEMIR (INSULIN DETEMIR) 1 UNITS/0.01ML SC (21:00)
[2017-08-20] MEDS: VANCOMYCIN HCL 1,000 MG, VIAL MATE ADAPTER 1 EACH in D5W 250 ML IV ×2 (02:43→20:49)
[2017-08-20] MEDS: SLF 3 ML SYR IV ×3 (02:44→20:50)
[2017-08-20 06:54] LABS: BASO % 0.3 % (0.0-1.0); EOS # 0.2 10^3/uL (0.0-0.50); EOS % 1.6 % (0.0-3.0); HEMATOCRIT 27.4 % (42.0-52.0); HEMOGLOBIN 8.9 g/dl (13.5-17.5); IMMATURE GRANULOCYTE % 1.4 % (0-3.0); LYMPH # 2.1 10^3/uL (1.5-4.5); LYMPH % 19.4 % (24.0-44.0); MEAN CORPUSCULAR HEMOGLOBIN 28.7 pg (27.0-33.0); MEAN CORPUSCULAR HGB CONC 32.5 g/dl (32.0-36.5); MEAN CORPUSCULAR VOLUME 88.4 fl (80.0-96.0); NEUTROPHILS # 7.6 10^3/uL (1.8-7.7); NEUTROPHILS % 68.3 % (36.0-66.0); PLATELET COUNT, AUTOMATED 249 10^3/uL (150-450); RED CELL DISTRIBUTION WIDTH 13.2 % (11.5-14.5); WHITE BLOOD COUNT 11.1 10^3/uL (4.0-10.0)
[2017-08-20 07:09] LABS: ANION GAP 4 MEQ/L (8-16); BLOOD UREA NITROGEN 26 MG/DL (7-18); C REACTIVE PROTEIN QUANTITATIV 2.72 MG/DL (0.00-0.30); CALCIUM LEVEL 8.3 MG/DL (8.8-10.2); CARBON DIOXIDE LEVEL 25 MEQ/L (21-32); CHLORIDE LEVEL 108 MEQ/L (98-107); GLOMERULAR FILTRATION RATE 44.4 (>35); GLUCOSE, FASTING 162 MG/DL (70-100); MAGNESIUM LEVEL 2.4 MG/DL (1.8-2.4); POTASSIUM SERUM 4.3 MEQ/L (3.5-5.1); SODIUM LEVEL 137 MEQ/L (136-145)
[2017-08-20] MEDS: HumaLOG INSULIN (NovoLOG) PER UNIT SC ×4 (08:21→22:47)
[2017-08-20] MEDS: ENTRESTO 24-26MG TABLET (SACUBITRIL/VALSARTAN) PO ×2 (09:11→21:31)
[2017-08-20] MEDS: ASPIRIN 81 MG CHEW TABLET PO (09:11)
[2017-08-20] MEDS: DABIGATRAN ETEXILATE 75 MG CAP (PRADAXA) PO ×2 (09:11→21:31)
[2017-08-20] MEDS: PREGABALIN 50 MG CAP (LYRICA) PO (09:12)
[2017-08-20] MEDS: EZETIMIBE 10 MG TAB (ZETIA) PO (09:12)
[2017-08-20] MEDS: CLOPIDOGREL 75 MG TAB PO (09:12)
[2017-08-20 11:45] LABS: BEDSIDE GLUCOSE 296 MG/DL (83-110)
[2017-08-20 17:31] LABS: BEDSIDE GLUCOSE 215 MG/DL (83-110)
[2017-08-20] MEDS: LEVEMIR (INSULIN DETEMIR) 1 UNITS/0.01ML SC (21:00)
[2017-08-20] MEDS: ROSUVASTATIN 10 MG TAB (CRESTOR) PO (21:31)
[2017-08-20] MEDS: NORCO, ANEXSIA 5/325MG TABLET (HYDROcodone/ACETAMINOPHEN) PO (21:32)
[2017-08-20 22:56] LABS: BEDSIDE GLUCOSE 206 MG/DL (83-110)
[2017-08-21] MEDS: SLF 3 ML SYR IV ×3 (05:27→22:24)
[2017-08-21 07:06] LABS: BASO % 0.3 % (0.0-1.0); EOS # 0.1 10^3/uL (0.0-0.50); EOS % 1.2 % (0.0-3.0); HEMATOCRIT 27.7 % (42.0-52.0); HEMOGLOBIN 8.8 g/dl (13.5-17.5); IMMATURE GRANULOCYTE % 1.2 % (0-3.0); LYMPH # 1.7 10^3/uL (1.5-4.5); LYMPH % 14.1 % (24.0-44.0); MEAN CORPUSCULAR HEMOGLOBIN 28.2 pg (27.0-33.0); MEAN CORPUSCULAR HGB CONC 31.8 g/dl (32.0-36.5); MEAN CORPUSCULAR VOLUME 88.8 fl (80.0-96.0); MONO # 0.9 10^3/uL (0.0-0.8); NEUTROPHILS # 8.9 10^3/uL (1.8-7.7); NEUTROPHILS % 75.2 % (36.0-66.0); PLATELET COUNT, AUTOMATED 252 10^3/uL (150-450); RED BLOOD COUNT 3.12 10^6/uL (4.30-6.10); RED CELL DISTRIBUTION WIDTH 13.3 % (11.5-14.5); WHITE BLOOD COUNT 11.8 10^3/uL (4.0-10.0)
[2017-08-21 07:23] LABS: ANION GAP 7 MEQ/L (8-16); BLOOD UREA NITROGEN 26 MG/DL (7-18); C REACTIVE PROTEIN QUANTITATIV 1.82 MG/DL (0.00-0.30); CALCIUM LEVEL 8.4 MG/DL (8.8-10.2); CARBON DIOXIDE LEVEL 24 MEQ/L (21-32); CHLORIDE LEVEL 108 MEQ/L (98-107); GLOMERULAR FILTRATION RATE 41.4 (>35); GLUCOSE, FASTING 217 MG/DL (70-100); MAGNESIUM LEVEL 2.3 MG/DL (1.8-2.4); SODIUM LEVEL 139 MEQ/L (136-145)
[2017-08-21] MEDS: PREGABALIN 50 MG CAP (LYRICA) PO (08:24)
[2017-08-21] MEDS: HumaLOG INSULIN (NovoLOG) PER UNIT SC ×4 (08:24→22:22)
[2017-08-21] MEDS: CLOPIDOGREL 75 MG TAB PO (09:01)
[2017-08-21] MEDS: ASPIRIN 81 MG CHEW TABLET PO (09:01)
[2017-08-21] MEDS: EZETIMIBE 10 MG TAB (ZETIA) PO (09:01)
[2017-08-21] MEDS: DABIGATRAN ETEXILATE 75 MG CAP (PRADAXA) PO ×2 (09:02→22:23)
[2017-08-21] MEDS: ENTRESTO 24-26MG TABLET (SACUBITRIL/VALSARTAN) PO ×2 (09:02→22:24)
[2017-08-21] MEDS: LIDOCAINE 1% SDV INJ 30 ML VIAL As Ordered (11:52)
[2017-08-21] MEDS: BUPIVACAINE HCL 0.5% 30 ML VIAL As Ordered (11:53)
[2017-08-21 17:03] LABS: BEDSIDE GLUCOSE 266 MG/DL (83-110)
[2017-08-21 20:51] LABS: BEDSIDE GLUCOSE 278 MG/DL (83-110)
[2017-08-21] MEDS: ROSUVASTATIN 10 MG TAB (CRESTOR) PO (22:23)
[2017-08-21] MEDS: LEVEMIR (INSULIN DETEMIR) 1 UNITS/0.01ML SC (22:23)
[2017-08-21] MEDS: NORCO, ANEXSIA 5/325MG TABLET (HYDROcodone/ACETAMINOPHEN) PO (22:24)
[2017-08-22] MEDS: SLF 3 ML SYR IV ×3 (05:03→23:04)
[2017-08-22 06:45] LABS: BASO % 0.3 % (0.0-1.0); EOS # 0.2 10^3/uL (0.0-0.50); EOS % 1.8 % (0.0-3.0); HEMATOCRIT 28.5 % (42.0-52.0); HEMOGLOBIN 9.2 g/dl (13.5-17.5); LYMPH # 1.4 10^3/uL (1.5-4.5); LYMPH % 13.7 % (24.0-44.0); MEAN CORPUSCULAR HGB CONC 32.3 g/dl (32.0-36.5); MEAN CORPUSCULAR VOLUME 89.9 fl (80.0-96.0); MONO # 0.9 10^3/uL (0.0-0.8); MONO % 8.5 % (0.0-5.0); NEUTROPHILS # 7.7 10^3/uL (1.8-7.7); NEUTROPHILS % 74.7 % (36.0-66.0); PLATELET COUNT, AUTOMATED 257 10^3/uL (150-450); RED BLOOD COUNT 3.17 10^6/uL (4.30-6.10); RED CELL DISTRIBUTION WIDTH 13.3 % (11.5-14.5); WHITE BLOOD COUNT 10.3 10^3/uL (4.0-10.0)
[2017-08-22 07:06] LABS: ANION GAP 6 MEQ/L (8-16); BLOOD UREA NITROGEN 23 MG/DL (7-18); CALCIUM LEVEL 8.6 MG/DL (8.8-10.2); CARBON DIOXIDE LEVEL 25 MEQ/L (21-32); CHLORIDE LEVEL 109 MEQ/L (98-107); CREATININE FOR GFR 1.65 MG/DL (0.70-1.30); GLOMERULAR FILTRATION RATE 42.8 (>35); GLUCOSE, FASTING 179 MG/DL (70-100); MAGNESIUM LEVEL 2.4 MG/DL (1.8-2.4); POTASSIUM SERUM 4.5 MEQ/L (3.5-5.1); SODIUM LEVEL 140 MEQ/L (136-145)
[2017-08-22] MEDS: HumaLOG INSULIN (NovoLOG) PER UNIT SC ×4 (07:30→21:00)
[2017-08-22] MEDS ORDERED: PROPOFOL 200 MG/20 ML VIAL As Ordered (10:03)
[2017-08-22] MEDS ORDERED: fentaNYL 100 MCG/2 ML INJECTION (J3010) As Ordered (10:04)
[2017-08-22] MEDS ORDERED: MIDAZOLAM INJ 2 MG/2 ML VIAL (J2250) As Ordered (10:07)
[2017-08-22 12:22] LABS: BEDSIDE GLUCOSE 154 MG/DL (83-110)
[2017-08-22] MEDS: DABIGATRAN ETEXILATE 75 MG CAP (PRADAXA) PO ×2 (13:56→23:03)
[2017-08-22] MEDS: EZETIMIBE 10 MG TAB (ZETIA) PO (13:56)
[2017-08-22] MEDS: CLOPIDOGREL 75 MG TAB PO (13:58)
[2017-08-22] MEDS: ASPIRIN 81 MG CHEW TABLET PO (13:58)
[2017-08-22] MEDS: PREGABALIN 50 MG CAP (LYRICA) PO (13:58)
[2017-08-22] MEDS: ENTRESTO 24-26MG TABLET (SACUBITRIL/VALSARTAN) PO ×2 (13:59→23:03)
[2017-08-22 17:07] LABS: BEDSIDE GLUCOSE 334 MG/DL (83-110)
[2017-08-22] MEDS: DAKIN'S 0.25% HALF-STRENGTH SOLN 480 ML TOP (17:28)
[2017-08-22] MEDS: ROSUVASTATIN 10 MG TAB (CRESTOR) PO (23:03)
[2017-08-22] MEDS: LEVEMIR (INSULIN DETEMIR) 1 UNITS/0.01ML SC (23:04)
[2017-08-23] MEDS: DAKIN'S 0.25% HALF-STRENGTH SOLN 480 ML TOP ×3 (01:52→21:17)
[2017-08-23] MEDS: SLF 3 ML SYR IV ×3 (05:05→21:18)
[2017-08-23 06:06] LABS: BASO % 0.3 % (0.0-1.0); EOS # 0.3 10^3/uL (0.0-0.50); EOS % 2.2 % (0.0-3.0); HEMATOCRIT 25.4 % (42.0-52.0); HEMOGLOBIN 8.2 g/dl (13.5-17.5); IMMATURE GRANULOCYTE % 0.8 % (0-3.0); LYMPH % 16.9 % (24.0-44.0); MEAN CORPUSCULAR HEMOGLOBIN 29.1 pg (27.0-33.0); MEAN CORPUSCULAR HGB CONC 32.3 g/dl (32.0-36.5); MEAN CORPUSCULAR VOLUME 90.1 fl (80.0-96.0); MONO # 1.1 10^3/uL (0.0-0.8); MONO % 9.2 % (0.0-5.0); NEUTROPHILS # 8.4 10^3/uL (1.8-7.7); NEUTROPHILS % 70.6 % (36.0-66.0); PLATELET COUNT, AUTOMATED 256 10^3/uL (150-450); RED BLOOD COUNT 2.82 10^6/uL (4.30-6.10); RED CELL DISTRIBUTION WIDTH 13.3 % (11.5-14.5); WHITE BLOOD COUNT 11.9 10^3/uL (4.0-10.0)
[2017-08-23 06:26] LABS: ANION GAP 6 MEQ/L (8-16); BLOOD UREA NITROGEN 22 MG/DL (7-18); CALCIUM LEVEL 8.4 MG/DL (8.8-10.2); CARBON DIOXIDE LEVEL 26 MEQ/L (21-32); CHLORIDE LEVEL 111 MEQ/L (98-107); CREATININE FOR GFR 1.57 MG/DL (0.70-1.30); GLOMERULAR FILTRATION RATE 45.4 (>35); GLUCOSE, FASTING 138 MG/DL (70-100); MAGNESIUM LEVEL 2.4 MG/DL (1.8-2.4); POTASSIUM SERUM 4.8 MEQ/L (3.5-5.1); SODIUM LEVEL 143 MEQ/L (136-145)
[2017-08-23] MEDS: HumaLOG INSULIN (NovoLOG) PER UNIT SC ×4 (08:00→21:00)
[2017-08-23] MEDS: ENTRESTO 24-26MG TABLET (SACUBITRIL/VALSARTAN) PO ×2 (10:28→21:18)
[2017-08-23] MEDS: PREGABALIN 50 MG CAP (LYRICA) PO (10:28)
[2017-08-23] MEDS: CLOPIDOGREL 75 MG TAB PO (10:28)
[2017-08-23] MEDS: ASPIRIN 81 MG CHEW TABLET PO (10:28)
[2017-08-23] MEDS: EZETIMIBE 10 MG TAB (ZETIA) PO (10:28)
[2017-08-23] MEDS: DABIGATRAN ETEXILATE 75 MG CAP (PRADAXA) PO ×2 (10:29→21:16)
[2017-08-23] MEDS: ACETAMINOPHEN TAB 650MG DOSE (2X325MG) PO (11:40)
[2017-08-23 11:45] LABS: BEDSIDE GLUCOSE 249 MG/DL (83-110)
[2017-08-23] MEDS: NORCO, ANEXSIA 5/325MG TABLET (HYDROcodone/ACETAMINOPHEN) PO ×2 (13:14→21:16)
[2017-08-23 13:26] LABS: IMMEDIATE SPIN CROSSMATCH 1 1
[2017-08-23 14:23] LABS: BEDSIDE GLUCOSE 238 MG/DL (83-110)
[2017-08-23 17:39] LABS: BEDSIDE GLUCOSE 153 MG/DL (83-110)
[2017-08-23 21:12] LABS: BEDSIDE GLUCOSE 215 MG/DL (83-110)
[2017-08-23] MEDS: LEVEMIR (INSULIN DETEMIR) 1 UNITS/0.01ML SC (21:15)
[2017-08-23] MEDS: ROSUVASTATIN 10 MG TAB (CRESTOR) PO (21:16)
[2017-08-24] MEDS: DAKIN'S 0.25% HALF-STRENGTH SOLN 480 ML TOP ×2 (05:28→21:32)
[2017-08-24] MEDS: SLF 3 ML SYR IV ×3 (05:28→21:28)
[2017-08-24 06:23] LABS: BASO % 0.3 % (0.0-1.0); EOS # 0.3 10^3/uL (0.0-0.50); EOS % 2.6 % (0.0-3.0); HEMATOCRIT 29.3 % (42.0-52.0); HEMOGLOBIN 9.5 g/dl (13.5-17.5); IMMATURE GRANULOCYTE % 0.8 % (0-3.0); LYMPH % 16.8 % (24.0-44.0); MEAN CORPUSCULAR HEMOGLOBIN 29.1 pg (27.0-33.0); MEAN CORPUSCULAR HGB CONC 32.4 g/dl (32.0-36.5); MEAN CORPUSCULAR VOLUME 89.9 fl (80.0-96.0); MONO % 8.4 % (0.0-5.0); NEUTROPHILS # 8.4 10^3/uL (1.8-7.7); NEUTROPHILS % 71.1 % (36.0-66.0); PLATELET COUNT, AUTOMATED 249 10^3/uL (150-450); RED BLOOD COUNT 3.26 10^6/uL (4.30-6.10); WHITE BLOOD COUNT 11.9 10^3/uL (4.0-10.0)
[2017-08-24 06:48] LABS: ANION GAP 6 MEQ/L (8-16); BLOOD UREA NITROGEN 23 MG/DL (7-18); CALCIUM LEVEL 8.3 MG/DL (8.8-10.2); CARBON DIOXIDE LEVEL 26 MEQ/L (21-32); CHLORIDE LEVEL 108 MEQ/L (98-107); CREATININE FOR GFR 1.65 MG/DL (0.70-1.30); GLOMERULAR FILTRATION RATE 42.8 (>35); GLUCOSE, FASTING 111 MG/DL (70-100); MAGNESIUM LEVEL 2.3 MG/DL (1.8-2.4); SODIUM LEVEL 140 MEQ/L (136-145)
[2017-08-24] MEDS: HumaLOG INSULIN (NovoLOG) PER UNIT SC ×4 (08:09→21:00)
[2017-08-24] MEDS: CLOPIDOGREL 75 MG TAB PO (08:10)
[2017-08-24] MEDS: ENTRESTO 24-26MG TABLET (SACUBITRIL/VALSARTAN) PO ×2 (08:10→21:27)
[2017-08-24] MEDS: EZETIMIBE 10 MG TAB (ZETIA) PO (08:10)
[2017-08-24] MEDS: DABIGATRAN ETEXILATE 75 MG CAP (PRADAXA) PO ×2 (08:11→21:27)
[2017-08-24] MEDS: PREGABALIN 50 MG CAP (LYRICA) PO (08:13)
[2017-08-24] MEDS: ASPIRIN 81 MG CHEW TABLET PO (09:00)
[2017-08-24 21:13] LABS: BEDSIDE GLUCOSE 201 MG/DL (83-110)
[2017-08-24] MEDS: LEVEMIR (INSULIN DETEMIR) 1 UNITS/0.01ML SC (21:27)
[2017-08-24] MEDS: ROSUVASTATIN 10 MG TAB (CRESTOR) PO (21:27)
[2017-08-25] MEDS: SLF 3 ML SYR IV ×3 (05:38→21:30)
[2017-08-25] MEDS: DAKIN'S 0.25% HALF-STRENGTH SOLN 480 ML TOP ×2 (05:41→21:30)
[2017-08-25 06:24] LABS: BASO % 0.3 % (0.0-1.0); EOS # 0.3 10^3/uL (0.0-0.50); EOS % 2.7 % (0.0-3.0); HEMATOCRIT 27.9 % (42.0-52.0); HEMOGLOBIN 8.9 g/dl (13.5-17.5); IMMATURE GRANULOCYTE % 0.8 % (0-3.0); LYMPH # 1.9 10^3/uL (1.5-4.5); MEAN CORPUSCULAR HEMOGLOBIN 28.7 pg (27.0-33.0); MEAN CORPUSCULAR HGB CONC 31.9 g/dl (32.0-36.5); MONO % 9.7 % (0.0-5.0); NEUTROPHILS % 68.5 % (36.0-66.0); PLATELET COUNT, AUTOMATED 244 10^3/uL (150-450); RED CELL DISTRIBUTION WIDTH 14.2 % (11.5-14.5); WHITE BLOOD COUNT 10.3 10^3/uL (4.0-10.0)
[2017-08-25 06:40] LABS: ANION GAP 7 MEQ/L (8-16); BLOOD UREA NITROGEN 23 MG/DL (7-18); CALCIUM LEVEL 8.4 MG/DL (8.8-10.2); CARBON DIOXIDE LEVEL 24 MEQ/L (21-32); CHLORIDE LEVEL 111 MEQ/L (98-107); CREATININE FOR GFR 1.67 MG/DL (0.70-1.30); GLOMERULAR FILTRATION RATE 42.2 (>35); GLUCOSE, FASTING 157 MG/DL (70-100); MAGNESIUM LEVEL 2.3 MG/DL (1.8-2.4); POTASSIUM SERUM 4.4 MEQ/L (3.5-5.1); SODIUM LEVEL 142 MEQ/L (136-145)
[2017-08-25] MEDS: LEVEMIR (INSULIN DETEMIR) 1 UNITS/0.01ML SC ×2 (08:19→20:51)
[2017-08-25] MEDS: ASPIRIN 81 MG CHEW TABLET PO (08:20)
[2017-08-25] MEDS: HumaLOG INSULIN (NovoLOG) PER UNIT SC ×4 (08:20→21:00)
[2017-08-25] MEDS: PREGABALIN 50 MG CAP (LYRICA) PO (08:20)
[2017-08-25] MEDS: DABIGATRAN ETEXILATE 75 MG CAP (PRADAXA) PO ×2 (08:20→20:51)
[2017-08-25] MEDS: CLOPIDOGREL 75 MG TAB PO (08:21)
[2017-08-25] MEDS: ENTRESTO 24-26MG TABLET (SACUBITRIL/VALSARTAN) PO ×2 (08:22→20:51)
[2017-08-25] MEDS: EZETIMIBE 10 MG TAB (ZETIA) PO (08:22)
[2017-08-25 16:41] LABS: BEDSIDE GLUCOSE 95 MG/DL (83-110)
[2017-08-25] MEDS: ROSUVASTATIN 10 MG TAB (CRESTOR) PO (20:51)
[2017-08-25 22:17] LABS: BEDSIDE GLUCOSE 195 MG/DL (83-110)
[2017-08-26] MEDS: DAKIN'S 0.25% HALF-STRENGTH SOLN 480 ML TOP (05:55)
[2017-08-26] MEDS: SLF 3 ML SYR IV ×3 (05:55→20:28)
[2017-08-26 08:02] LABS: BEDSIDE GLUCOSE 234 MG/DL (83-110)
[2017-08-26] MEDS: PREGABALIN 50 MG CAP (LYRICA) PO (08:41)
[2017-08-26] MEDS: HumaLOG INSULIN (NovoLOG) PER UNIT SC ×4 (08:41→21:00)
[2017-08-26] MEDS: EZETIMIBE 10 MG TAB (ZETIA) PO (08:41)
[2017-08-26] MEDS: CLOPIDOGREL 75 MG TAB PO (08:41)
[2017-08-26] MEDS: DABIGATRAN ETEXILATE 75 MG CAP (PRADAXA) PO ×2 (08:41→20:27)
[2017-08-26] MEDS: LEVEMIR (INSULIN DETEMIR) 1 UNITS/0.01ML SC ×2 (08:41→20:28)
[2017-08-26] MEDS: ASPIRIN 81 MG CHEW TABLET PO (08:41)
[2017-08-26] MEDS: NORCO, ANEXSIA 5/325MG TABLET (HYDROcodone/ACETAMINOPHEN) PO ×2 (08:42→17:32)
[2017-08-26] MEDS: ENTRESTO 24-26MG TABLET (SACUBITRIL/VALSARTAN) PO ×2 (08:42→20:27)
[2017-08-26 11:44] LABS: BEDSIDE GLUCOSE 153 MG/DL (83-110)
[2017-08-26 12:42] LABS: HEMATOCRIT 30.6 % (42.0-52.0); HEMOGLOBIN 9.8 g/dl (13.5-17.5)
[2017-08-26 17:04] LABS: BEDSIDE GLUCOSE 73 MG/DL (83-110)
[2017-08-26] MEDS: amLODIPine 10 MG TAB PO (18:16)
[2017-08-26] MEDS: ROSUVASTATIN 10 MG TAB (CRESTOR) PO (20:27)
[2017-08-26 20:31] LABS: BEDSIDE GLUCOSE 198 MG/DL (83-110)
[2017-08-27] MEDS: SLF 3 ML SYR IV ×3 (05:51→22:00)
[2017-08-27 07:19] LABS: BEDSIDE GLUCOSE 83 MG/DL (83-110)
[2017-08-27] MEDS: HumaLOG INSULIN (NovoLOG) PER UNIT SC ×4 (07:30→21:00)
[2017-08-27 07:38] LABS: HEMATOCRIT 28.9 % (42.0-52.0); HEMOGLOBIN 9.1 g/dl (13.5-17.5); MEAN CORPUSCULAR HEMOGLOBIN 28.8 pg (27.0-33.0); MEAN CORPUSCULAR HGB CONC 31.5 g/dl (32.0-36.5); MEAN CORPUSCULAR VOLUME 91.5 fl (80.0-96.0); PLATELET COUNT, AUTOMATED 241 10^3/uL (150-450); RED BLOOD COUNT 3.16 10^6/uL (4.30-6.10); RED CELL DISTRIBUTION WIDTH 14.4 % (11.5-14.5); WHITE BLOOD COUNT 11.3 10^3/uL (4.0-10.0)
[2017-08-27 08:19] LABS: ANION GAP 8 MEQ/L (8-16); BLOOD UREA NITROGEN 22 MG/DL (7-18); CALCIUM LEVEL 8.1 MG/DL (8.8-10.2); CARBON DIOXIDE LEVEL 24 MEQ/L (21-32); CHLORIDE LEVEL 110 MEQ/L (98-107); CREATININE FOR GFR 1.65 MG/DL (0.70-1.30); GLOMERULAR FILTRATION RATE 42.8 (>35); GLUCOSE, FASTING 75 MG/DL (70-100); POTASSIUM SERUM 4.6 MEQ/L (3.5-5.1); SODIUM LEVEL 142 MEQ/L (136-145)
[2017-08-27 08:26] LABS: BEDSIDE GLUCOSE 289 MG/DL (83-110)
[2017-08-27 08:26] LABS: BEDSIDE GLUCOSE 257 MG/DL (83-110)
[2017-08-27 08:26] LABS: BEDSIDE GLUCOSE 130 MG/DL (83-110)
[2017-08-27] MEDS: ENTRESTO 24-26MG TABLET (SACUBITRIL/VALSARTAN) PO ×2 (09:00→20:54)
[2017-08-27] MEDS: amLODIPine 10 MG TAB PO (09:00)
[2017-08-27] MEDS: PREGABALIN 50 MG CAP (LYRICA) PO (09:21)
[2017-08-27] MEDS: LEVEMIR (INSULIN DETEMIR) 1 UNITS/0.01ML SC ×2 (09:21→20:54)
[2017-08-27] MEDS: ASPIRIN 81 MG CHEW TABLET PO (09:21)
[2017-08-27] MEDS: EZETIMIBE 10 MG TAB (ZETIA) PO (09:22)
[2017-08-27] MEDS: CLOPIDOGREL 75 MG TAB PO (09:22)
[2017-08-27] MEDS: DABIGATRAN ETEXILATE 75 MG CAP (PRADAXA) PO ×2 (09:23→20:53)
[2017-08-27] MEDS: NORCO, ANEXSIA 5/325MG TABLET (HYDROcodone/ACETAMINOPHEN) PO ×2 (10:33→20:54)
[2017-08-27 11:38] LABS: BEDSIDE GLUCOSE 230 MG/DL (83-110)
[2017-08-27 17:08] LABS: BEDSIDE GLUCOSE 161 MG/DL (83-110)
[2017-08-27] MEDS: ROSUVASTATIN 10 MG TAB (CRESTOR) PO (20:54)
[2017-08-27 21:16] LABS: BEDSIDE GLUCOSE 118 MG/DL (83-110)
[2017-08-28 06:01] LABS: HEMATOCRIT 27.5 % (42.0-52.0); HEMOGLOBIN 8.8 g/dl (13.5-17.5); MEAN CORPUSCULAR HEMOGLOBIN 28.7 pg (27.0-33.0); MEAN CORPUSCULAR VOLUME 89.6 fl (80.0-96.0); PLATELET COUNT, AUTOMATED 222 10^3/uL (150-450); RED BLOOD COUNT 3.07 10^6/uL (4.30-6.10); RED CELL DISTRIBUTION WIDTH 14.6 % (11.5-14.5); WHITE BLOOD COUNT 9.8 10^3/uL (4.0-10.0)
[2017-08-28] MEDS ORDERED: NS 1,000 ML IV (06:02)
[2017-08-28 06:21] LABS: ANION GAP 6 MEQ/L (8-16); BLOOD UREA NITROGEN 23 MG/DL (7-18); CALCIUM LEVEL 8.4 MG/DL (8.8-10.2); CARBON DIOXIDE LEVEL 25 MEQ/L (21-32); CHLORIDE LEVEL 110 MEQ/L (98-107); CREATININE FOR GFR 1.59 MG/DL (0.70-1.30); GLOMERULAR FILTRATION RATE 44.7 (>35); GLUCOSE, FASTING 63 MG/DL (70-100); POTASSIUM SERUM 4.3 MEQ/L (3.5-5.1); SODIUM LEVEL 141 MEQ/L (136-145)
[2017-08-28] MEDS: HumaLOG INSULIN (NovoLOG) PER UNIT SC ×4 (07:16→21:00)
[2017-08-28] MEDS: EZETIMIBE 10 MG TAB (ZETIA) PO (09:00)
[2017-08-28] MEDS: ENTRESTO 24-26MG TABLET (SACUBITRIL/VALSARTAN) PO ×2 (09:00→20:59)
[2017-08-28] MEDS: LEVEMIR (INSULIN DETEMIR) 1 UNITS/0.01ML SC ×2 (09:00→20:59)
[2017-08-28] MEDS: amLODIPine 10 MG TAB PO (09:00)
[2017-08-28 09:09] LABS: BEDSIDE GLUCOSE 74 MG/DL (83-110)
[2017-08-28] MEDS: D5W/0.9% SODIUM CHLORIDE 1,000 ML IV ×2 (09:41→21:02)
[2017-08-28] MEDS: CLOPIDOGREL 75 MG TAB PO (11:58)
[2017-08-28] MEDS: ASPIRIN 81 MG CHEW TABLET PO (11:58)
[2017-08-28] MEDS: DABIGATRAN ETEXILATE 75 MG CAP (PRADAXA) PO ×2 (11:58→20:59)
[2017-08-28] MEDS: PREGABALIN 50 MG CAP (LYRICA) PO (11:58)
[2017-08-28 12:38] LABS: BEDSIDE GLUCOSE 78 MG/DL (83-110)
[2017-08-28] MEDS ORDERED: PROPOFOL 500 MG/50 ML VIAL As Ordered (15:35)
[2017-08-28] MEDS ORDERED: LIDOCAINE 2% INJ 100 MG/5 ML SDV (FOR ANES.) As Ordered (15:35)
[2017-08-28 17:24] LABS: BEDSIDE GLUCOSE 143 MG/DL (83-110)
[2017-08-28] MEDS: LIDOCAINE 1% MDV 20ML VIAL As Ordered (19:00)
[2017-08-28] MEDS: BUPIVACAINE HCL 0.5% 10 ML VIAL As Ordered (19:00)
[2017-08-28] MEDS: BUPIVACAINE HCL 0.5% 30 ML VIAL As Ordered (19:11)
[2017-08-28] MEDS: LIDOCAINE 1% SDV INJ 30 ML VIAL As Ordered (19:11)
[2017-08-28] MEDS ORDERED: ONDANSETRON 4MG/2ML VIAL (J2405) IV (20:00)
[2017-08-28] MEDS ORDERED: fentaNYL 100 MCG/2 ML INJECTION (J3010) IV (20:00)
[2017-08-28] MEDS: LR 1,000 ML IV (20:00)
[2017-08-28] MEDS: ROSUVASTATIN 10 MG TAB (CRESTOR) PO (21:00)
[2017-08-28] MEDS: NORCO, ANEXSIA 5/325MG TABLET (HYDROcodone/ACETAMINOPHEN) PO (21:00)
[2017-08-28 21:08] LABS: BEDSIDE GLUCOSE 178 MG/DL (83-110)
[2017-08-29 06:25] LABS: HEMATOCRIT 28.7 % (42.0-52.0); HEMOGLOBIN 9.1 g/dl (13.5-17.5); MEAN CORPUSCULAR HEMOGLOBIN 29.1 pg (27.0-33.0); MEAN CORPUSCULAR HGB CONC 31.7 g/dl (32.0-36.5); MEAN CORPUSCULAR VOLUME 91.7 fl (80.0-96.0); PLATELET COUNT, AUTOMATED 235 10^3/uL (150-450); RED BLOOD COUNT 3.13 10^6/uL (4.30-6.10); RED CELL DISTRIBUTION WIDTH 14.8 % (11.5-14.5)
[2017-08-29 06:39] LABS: ANION GAP 8 MEQ/L (8-16); BLOOD UREA NITROGEN 22 MG/DL (7-18); CALCIUM LEVEL 8.5 MG/DL (8.8-10.2); CARBON DIOXIDE LEVEL 22 MEQ/L (21-32); CHLORIDE LEVEL 110 MEQ/L (98-107); CREATININE FOR GFR 1.65 MG/DL (0.70-1.30); GLOMERULAR FILTRATION RATE 42.8 (>35); GLUCOSE, FASTING 193 MG/DL (70-100); POTASSIUM SERUM 4.5 MEQ/L (3.5-5.1); SODIUM LEVEL 140 MEQ/L (136-145)
[2017-08-29] MEDS: NORCO, ANEXSIA 5/325MG TABLET (HYDROcodone/ACETAMINOPHEN) PO ×2 (08:14→20:58)
[2017-08-29] MEDS: HumaLOG INSULIN (NovoLOG) PER UNIT SC ×4 (08:15→21:00)
[2017-08-29] MEDS: D5W/0.9% SODIUM CHLORIDE 1,000 ML IV (08:15)
[2017-08-29] MEDS: PREGABALIN 50 MG CAP (LYRICA) PO (09:37)
[2017-08-29] MEDS: LEVEMIR (INSULIN DETEMIR) 1 UNITS/0.01ML SC ×2 (09:42→20:57)
[2017-08-29] MEDS: ASPIRIN 81 MG CHEW TABLET PO (09:43)
[2017-08-29] MEDS: amLODIPine 10 MG TAB PO (09:44)
[2017-08-29] MEDS: ENTRESTO 24-26MG TABLET (SACUBITRIL/VALSARTAN) PO ×2 (09:44→20:58)
[2017-08-29] MEDS: EZETIMIBE 10 MG TAB (ZETIA) PO (09:44)
[2017-08-29] MEDS: DABIGATRAN ETEXILATE 75 MG CAP (PRADAXA) PO ×2 (09:44→20:58)
[2017-08-29] MEDS: CLOPIDOGREL 75 MG TAB PO (09:45)
[2017-08-29 11:51] LABS: BEDSIDE GLUCOSE 300 MG/DL (83-110)
[2017-08-29 17:34] LABS: BEDSIDE GLUCOSE 161 MG/DL (83-110)
[2017-08-29] MEDS: ROSUVASTATIN 10 MG TAB (CRESTOR) PO (20:58)
[2017-08-29 22:35] LABS: BEDSIDE GLUCOSE 194 MG/DL (83-110)
[2017-08-30] MEDS: NORCO, ANEXSIA 5/325MG TABLET (HYDROcodone/ACETAMINOPHEN) PO (05:15)
[2017-08-30 06:10] LABS: HEMATOCRIT 25.9 % (42.0-52.0); HEMOGLOBIN 8.2 g/dl (13.5-17.5); MEAN CORPUSCULAR HEMOGLOBIN 29.2 pg (27.0-33.0); MEAN CORPUSCULAR HGB CONC 31.7 g/dl (32.0-36.5); MEAN CORPUSCULAR VOLUME 92.2 fl (80.0-96.0); PLATELET COUNT, AUTOMATED 206 10^3/uL (150-450); RED BLOOD COUNT 2.81 10^6/uL (4.30-6.10); RED CELL DISTRIBUTION WIDTH 14.7 % (11.5-14.5); WHITE BLOOD COUNT 10.9 10^3/uL (4.0-10.0)
[2017-08-30 06:29] LABS: ANION GAP 7 MEQ/L (8-16); BLOOD UREA NITROGEN 27 MG/DL (7-18); CALCIUM LEVEL 8.6 MG/DL (8.8-10.2); CARBON DIOXIDE LEVEL 23 MEQ/L (21-32); CHLORIDE LEVEL 112 MEQ/L (98-107); GLOMERULAR FILTRATION RATE 41.4 (>35); GLUCOSE, FASTING 155 MG/DL (70-100); POTASSIUM SERUM 4.4 MEQ/L (3.5-5.1); SODIUM LEVEL 142 MEQ/L (136-145)
[2017-08-30] MEDS: HumaLOG INSULIN (NovoLOG) PER UNIT SC ×2 (07:48→12:51)
[2017-08-30] MEDS: PREGABALIN 50 MG CAP (LYRICA) PO (07:48)
[2017-08-30 08:27] LABS: BEDSIDE GLUCOSE 132 MG/DL (83-110)
[2017-08-30] MEDS: ASPIRIN 81 MG CHEW TABLET PO (08:56)
[2017-08-30] MEDS: DABIGATRAN ETEXILATE 75 MG CAP (PRADAXA) PO (08:56)
[2017-08-30] MEDS: EZETIMIBE 10 MG TAB (ZETIA) PO (08:57)
[2017-08-30] MEDS: CLOPIDOGREL 75 MG TAB PO (08:57)
[2017-08-30] MEDS: amLODIPine 10 MG TAB PO (08:59)
[2017-08-30] MEDS: ENTRESTO 24-26MG TABLET (SACUBITRIL/VALSARTAN) PO (09:00)
[2017-08-30] MEDS: LEVEMIR (INSULIN DETEMIR) 1 UNITS/0.01ML SC (09:01)
== END 2017-08-30 12:53 | disposition home or self-care (01) | DRG 40 ==
LOC: M ICU 08-16 21:33 → M MS5PR 08-18 15:47 → M ED 09:39 → M ED INP 14:21 → M PCU 19:01
PROVIDERS: Internal Medicine
PROC: 0Y6R0Z0 Detachment at Right 2nd Toe, Complete, Open Approach (ICD-10-PCS; 2017-08-12 16:22)
PROC: 0Y6Q0Z0 Detachment at Left 1st Toe, Complete, Open Approach (ICD-10-PCS; 2017-08-12 16:22)
PROC: B41GYZZ Fluoroscopy of Left Lower Extremity Arteries using Other Contrast (ICD-10-PCS; principal; 2017-08-12 19:46)
PROC: 0QBP0ZZ Excision of Left Metatarsal, Open Approach (ICD-10-PCS; 2017-08-12 19:46)
PROC: 0KBW0ZZ Excision of Left Foot Muscle, Open Approach (ICD-10-PCS; 2017-08-12 19:46)
PROC: 0JBR0ZZ Excision of Left Foot Subcutaneous Tissue and Fascia, Open Approach (ICD-10-PCS; 2017-08-12 19:46)
PROC: 30233N1 Transfusion of Nonautologous Red Blood Cells into Peripheral Vein, Percutaneous Approach (ICD-10-PCS; 2017-08-12 19:46)
PROC: B41GYZZ Fluoroscopy of Left Lower Extremity Arteries using Other Contrast (ICD-10-PCS; 2017-08-12 19:46)
DX: I63.9 Cerebral infarction, unspecified (principal); I21.4 Non-ST elevation (NSTEMI) myocardial infarction; A41.9 Sepsis, unspecified organism; I70.262 Atherosclerosis of native arteries of extremities with gangrene, left leg; F03.91 Unspecified dementia, unspecified severity, with behavioral disturbance; I13.0 Hypertensive heart and chronic kidney disease with heart failure and stage 1 through stage 4 chronic kidney disease, or unspecified chronic kidney disease; D62 Acute posthemorrhagic anemia; I50.30 Unspecified diastolic (congestive) heart failure; M86.172 Other acute osteomyelitis, left ankle and foot; E11.9 Type 2 diabetes mellitus without complications; I25.10 Atherosclerotic heart disease of native coronary artery without angina pectoris; I27.81 Cor pulmonale (chronic); Z95.1 Presence of aortocoronary bypass graft; N18.3 Chronic kidney disease, stage 3 (moderate); D72.829 Elevated white blood cell count, unspecified; Z79.899 Other long term (current) drug therapy; Z79.4 Long term (current) use of insulin; I48.2 Chronic atrial fibrillation; E78.00 Pure hypercholesterolemia, unspecified; I45.10 Unspecified right bundle-branch block; B35.1 Tinea unguium; J01.30 Acute sphenoidal sinusitis, unspecified; I27.20 Pulmonary hypertension, unspecified; I36.0 Nonrheumatic tricuspid (valve) stenosis; E78.5 Hyperlipidemia, unspecified; B95.61 Methicillin susceptible Staphylococcus aureus infection as the cause of diseases classified elsewhere

== ENCOUNTER 2017-09-18 12:43 | Inpatient (IN) | payer OTHER ==
[2017-09-18 13:35] LABS: VENOUS BASE EXCESS -3.7 (-2.0-2.0); VENOUS HCO3 22.9 MEQ/L (23.0-27.0); VENOUS O2 SATURATION 50.3 % (60.0-80.0); VENOUS PARTIAL PRESSURE CO2 48.2 mmHg (38.0-50.0); VENOUS PARTIAL PRESSURE O2 30.3 mmHg (30.0-50.0); VENOUS PH 7.295 UNITS (7.330-7.430); VENOUS STANDARD HCO3 20.5 MEQ/L; VENOUS TOTAL CO2 24.4 MEQ/L (24.0-28.0)
[2017-09-18 13:39] LABS: BASO % 0.3 % (0.0-1.0); EOS # 0.1 10^3/uL (0.0-0.50); HEMATOCRIT 34.6 % (42.0-52.0); IMMATURE GRANULOCYTE % 0.4 % (0-3.0); LYMPH # 1.2 10^3/uL (1.5-4.5); LYMPH % 11.7 % (24.0-44.0); MEAN CORPUSCULAR HEMOGLOBIN 27.7 pg (27.0-33.0); MEAN CORPUSCULAR HGB CONC 31.8 g/dl (32.0-36.5); MEAN CORPUSCULAR VOLUME 87.2 fl (80.0-96.0); MONO # 0.7 10^3/uL (0.0-0.8); MONO % 6.5 % (0.0-5.0); NEUTROPHILS # 8.3 10^3/uL (1.8-7.7); NEUTROPHILS % 80.1 % (36.0-66.0); PLATELET COUNT, AUTOMATED 243 10^3/uL (150-450); RED BLOOD COUNT 3.97 10^6/uL (4.30-6.10); RED CELL DISTRIBUTION WIDTH 14.1 % (11.5-14.5); WHITE BLOOD COUNT 10.3 10^3/uL (4.0-10.0)
[2017-09-18 13:49] LABS: INR 2.18; PROTHROMBIN TIME 25.1 SECONDS (12.4-14.5)
[2017-09-18 13:51] LABS: PARTIAL THROMBOPLASTIN TIME 73.7 SECONDS (26.8-37.9)
[2017-09-18 14:09] LABS: ALBUMIN 2.7 GM/DL (3.2-5.2); ALBUMIN/GLOBULIN RATIO 0.66 (1.00-1.93); ALKALINE PHOSPHATASE 178 U/L (45-117); ALT/SGPT 10 U/L (12-78); AMYLASE 59 U/L (25-115); ANION GAP 7 MEQ/L (8-16); AST/SGOT 16 U/L (7-37); BILIRUBIN,DIRECT 0.2 MG/DL (0.0-0.2); BILIRUBIN,TOTAL 0.5 MG/DL (0.2-1.0); BLOOD UREA NITROGEN 19 MG/DL (7-18); C REACTIVE PROTEIN QUANTITATIV 0.73 MG/DL (0.00-0.30); CALCIUM LEVEL 8.6 MG/DL (8.8-10.2); CARBON DIOXIDE LEVEL 26 MEQ/L (21-32); CHLORIDE LEVEL 105 MEQ/L (98-107); CK-MB VALUE MASS 1.4 NG/ML (<3.6); CPK CREATINE PHOSPHOKINASE 39 U/L (39-308); CREATININE FOR GFR 2.09 MG/DL (0.70-1.30); GLOMERULAR FILTRATION RATE 32.6 (>35); GLUCOSE, FASTING 176 MG/DL (70-100); MB/CK RELATIVE INDEX 3.58 (< OR =4); POTASSIUM SERUM 4.6 MEQ/L (3.5-5.1); SODIUM LEVEL 138 MEQ/L (136-145); TOTAL PROTEIN 6.8 GM/DL (6.4-8.2); TROPONIN I 0.02 NG/ML (< 0.10)
[2017-09-18] MEDS: NS 500 ML IV (14:38)
[2017-09-18] MEDS: NS 1,000 ML IV ×2 (17:23→18:12)
[2017-09-18] MEDS ORDERED: ONDANSETRON 4MG/2ML VIAL (J2405) IV (18:00)
[2017-09-18] MEDS ORDERED: GLUCAGON FOR INJ 1 MG VIAL (J1610) SC (18:30)
[2017-09-18] MEDS ORDERED: DEXTROSE 50% 50 ML SYRINGE IV (18:30)
[2017-09-18] MEDS ORDERED: GLUCOSE 4 GM CHEW TABLET PO (18:30)
[2017-09-18 18:35] LABS: AMMONIA 55 uMOL/L (<32)
[2017-09-18] MEDS: SODIUM CHLORIDE 0.9% 1000 ML IV (21:00)
[2017-09-18 21:57] LABS: BEDSIDE GLUCOSE 123 MG/DL (83-110)
[2017-09-18] MEDS: HumaLOG INSULIN (NovoLOG) PER UNIT SC (21:57)
[2017-09-18] MEDS: LEVEMIR (INSULIN DETEMIR) 1 UNITS/0.01ML SC (21:57)
[2017-09-18] MEDS: DABIGATRAN ETEXILATE 75 MG CAP (PRADAXA) PO (21:58)
[2017-09-18] MEDS: ROSUVASTATIN 10 MG TAB (CRESTOR) PO (22:39)
[2017-09-19] MEDS: HumaLOG INSULIN (NovoLOG) PER UNIT SC ×4 (07:30→21:00)
[2017-09-19 07:47] LABS: BASO % 0.4 % (0.0-1.0); EOS # 0.1 10^3/uL (0.0-0.50); EOS % 0.8 % (0.0-3.0); HEMATOCRIT 33.1 % (42.0-52.0); HEMOGLOBIN 10.5 g/dl (13.5-17.5); IMMATURE GRANULOCYTE % 0.5 % (0-3.0); LYMPH # 1.7 10^3/uL (1.5-4.5); LYMPH % 16.9 % (24.0-44.0); MEAN CORPUSCULAR HEMOGLOBIN 27.9 pg (27.0-33.0); MEAN CORPUSCULAR HGB CONC 31.7 g/dl (32.0-36.5); MONO % 10.1 % (0.0-5.0); NEUTROPHILS # 7.1 10^3/uL (1.8-7.7); NEUTROPHILS % 71.3 % (36.0-66.0); PLATELET COUNT, AUTOMATED 220 10^3/uL (150-450); RED BLOOD COUNT 3.76 10^6/uL (4.30-6.10); RED CELL DISTRIBUTION WIDTH 14.2 % (11.5-14.5)
[2017-09-19 08:03] LABS: BEDSIDE GLUCOSE 64 MG/DL (83-110)
[2017-09-19 08:47] LABS: ANION GAP 6 MEQ/L (8-16); BLOOD UREA NITROGEN 19 MG/DL (7-18); CALCIUM LEVEL 8.6 MG/DL (8.8-10.2); CARBON DIOXIDE LEVEL 26 MEQ/L (21-32); CHLORIDE LEVEL 107 MEQ/L (98-107); CREATININE FOR GFR 1.87 MG/DL (0.70-1.30); GLOMERULAR FILTRATION RATE 37.1 (>35); GLUCOSE, FASTING 72 MG/DL (70-100); POTASSIUM SERUM 4.5 MEQ/L (3.5-5.1); SODIUM LEVEL 139 MEQ/L (136-145)
[2017-09-19] MEDS: CLOPIDOGREL 75 MG TAB PO ×2 (09:00→09:20)
[2017-09-19] MEDS: DABIGATRAN ETEXILATE 75 MG CAP (PRADAXA) PO ×3 (09:00→22:32)
[2017-09-19] MEDS: ASPIRIN 81 MG CHEW TABLET PO ×2 (09:00→09:20)
[2017-09-19] MEDS: NS 1,000 ML IV (09:13)
[2017-09-19] MEDS: EZETIMIBE 10 MG TAB (ZETIA) PO (09:20)
[2017-09-19] MEDS: DONEPEZIL 5 MG TAB PO (09:20)
[2017-09-19] MEDS: PREGABALIN 50 MG CAP (LYRICA) PO (09:20)
[2017-09-19] MEDS ORDERED: CEFTAROLINE FOSAMIL 400 MG in D5W MINI-BAG PLUS 50 ML IV (11:00)
[2017-09-19 12:35] LABS: BEDSIDE GLUCOSE 87 MG/DL (83-110)
[2017-09-19] MEDS: CEFTAROLINE FOSAMIL 400 MG in D5W MINI-BAG PLUS 50 ML IV (13:15)
[2017-09-19 17:15] LABS: BEDSIDE GLUCOSE 129 MG/DL (83-110)
[2017-09-19 21:21] LABS: BEDSIDE GLUCOSE 107 MG/DL (83-110)
[2017-09-19] MEDS: ROSUVASTATIN 10 MG TAB (CRESTOR) PO (22:32)
[2017-09-19] MEDS: LEVEMIR (INSULIN DETEMIR) 1 UNITS/0.01ML SC (22:33)
[2017-09-20] MEDS: CEFTAROLINE FOSAMIL 400 MG in D5W MINI-BAG PLUS 50 ML IV ×2 (01:07→12:23)
[2017-09-20] MEDS: NS 1,000 ML IV ×2 (01:56→12:21)
[2017-09-20 06:26] LABS: BASO % 0.2 % (0.0-1.0); EOS # 0.1 10^3/uL (0.0-0.50); EOS % 0.8 % (0.0-3.0); HEMATOCRIT 28.5 % (42.0-52.0); HEMOGLOBIN 9.1 g/dl (13.5-17.5); IMMATURE GRANULOCYTE % 0.3 % (0-3.0); LYMPH # 1.1 10^3/uL (1.5-4.5); LYMPH % 11.4 % (24.0-44.0); MEAN CORPUSCULAR HEMOGLOBIN 27.2 pg (27.0-33.0); MEAN CORPUSCULAR HGB CONC 31.9 g/dl (32.0-36.5); MEAN CORPUSCULAR VOLUME 85.3 fl (80.0-96.0); MONO % 10.5 % (0.0-5.0); NEUTROPHILS # 7.6 10^3/uL (1.8-7.7); NEUTROPHILS % 76.8 % (36.0-66.0); PLATELET COUNT, AUTOMATED 198 10^3/uL (150-450); RED BLOOD COUNT 3.34 10^6/uL (4.30-6.10); WHITE BLOOD COUNT 9.9 10^3/uL (4.0-10.0)
[2017-09-20 06:44] LABS: ANION GAP 6 MEQ/L (8-16); BLOOD UREA NITROGEN 18 MG/DL (7-18); CALCIUM LEVEL 8.5 MG/DL (8.8-10.2); CARBON DIOXIDE LEVEL 23 MEQ/L (21-32); CHLORIDE LEVEL 109 MEQ/L (98-107); CREATININE FOR GFR 1.68 MG/DL (0.70-1.30); GLUCOSE, FASTING 105 MG/DL (70-100); POTASSIUM SERUM 4.3 MEQ/L (3.5-5.1); SODIUM LEVEL 138 MEQ/L (136-145)
[2017-09-20] MEDS: HumaLOG INSULIN (NovoLOG) PER UNIT SC ×4 (07:30→21:00)
[2017-09-20] MEDS: ASPIRIN 81 MG CHEW TABLET PO (09:47)
[2017-09-20] MEDS: DABIGATRAN ETEXILATE 75 MG CAP (PRADAXA) PO ×2 (09:47→20:58)
[2017-09-20] MEDS: PREGABALIN 50 MG CAP (LYRICA) PO (09:48)
[2017-09-20] MEDS: CLOPIDOGREL 75 MG TAB PO (09:48)
[2017-09-20] MEDS: DONEPEZIL 5 MG TAB PO (09:48)
[2017-09-20] MEDS: EZETIMIBE 10 MG TAB (ZETIA) PO (09:48)
[2017-09-20 12:00] LABS: BEDSIDE GLUCOSE 102 MG/DL (83-110)
[2017-09-20 16:26] LABS: BEDSIDE GLUCOSE 184 MG/DL (83-110)
[2017-09-20 20:58] LABS: BEDSIDE GLUCOSE 226 MG/DL (83-110)
[2017-09-20] MEDS: ROSUVASTATIN 10 MG TAB (CRESTOR) PO (20:58)
[2017-09-20] MEDS: LEVEMIR (INSULIN DETEMIR) 1 UNITS/0.01ML SC (20:59)
[2017-09-21] MEDS: CEFTAROLINE FOSAMIL 400 MG in D5W MINI-BAG PLUS 50 ML IV ×2 (01:51→13:10)
[2017-09-21 04:55] LABS: BASO % 0.2 % (0.0-1.0); EOS # 0.1 10^3/uL (0.0-0.50); EOS % 0.6 % (0.0-3.0); HEMATOCRIT 26.8 % (42.0-52.0); HEMOGLOBIN 8.6 g/dl (13.5-17.5); IMMATURE GRANULOCYTE % 0.3 % (0-3.0); LYMPH # 1.6 10^3/uL (1.5-4.5); LYMPH % 15.8 % (24.0-44.0); MEAN CORPUSCULAR HEMOGLOBIN 27.5 pg (27.0-33.0); MEAN CORPUSCULAR HGB CONC 32.1 g/dl (32.0-36.5); MEAN CORPUSCULAR VOLUME 85.6 fl (80.0-96.0); MONO # 1.1 10^3/uL (0.0-0.8); MONO % 10.8 % (0.0-5.0); NEUTROPHILS # 7.1 10^3/uL (1.8-7.7); NEUTROPHILS % 72.3 % (36.0-66.0); PLATELET COUNT, AUTOMATED 179 10^3/uL (150-450); RED BLOOD COUNT 3.13 10^6/uL (4.30-6.10); WHITE BLOOD COUNT 9.9 10^3/uL (4.0-10.0)
[2017-09-21 05:11] LABS: ANION GAP 6 MEQ/L (8-16); BLOOD UREA NITROGEN 23 MG/DL (7-18); CALCIUM LEVEL 8.2 MG/DL (8.8-10.2); CARBON DIOXIDE LEVEL 23 MEQ/L (21-32); CHLORIDE LEVEL 108 MEQ/L (98-107); CREATININE FOR GFR 1.95 MG/DL (0.70-1.30); GLOMERULAR FILTRATION RATE 35.3 (>35); GLUCOSE, FASTING 152 MG/DL (70-100); POTASSIUM SERUM 4.2 MEQ/L (3.5-5.1); SODIUM LEVEL 137 MEQ/L (136-145)
[2017-09-21] MEDS: HumaLOG INSULIN (NovoLOG) PER UNIT SC ×4 (07:30→20:45)
[2017-09-21 08:11] LABS: AMMONIA 28 uMOL/L (<32)
[2017-09-21 08:16] LABS: CK-MB VALUE MASS 1.4 NG/ML (<3.6); CPK CREATINE PHOSPHOKINASE 54 U/L (39-308); MB/CK RELATIVE INDEX 2.59 (< OR =4); TROPONIN I 0.02 NG/ML (< 0.10)
[2017-09-21 09:15] LABS: ALBUMIN 2.3 GM/DL (3.2-5.2); ALBUMIN/GLOBULIN RATIO 0.74 (1.00-1.93); ALKALINE PHOSPHATASE 152 U/L (45-117); ALT/SGPT 11 U/L (12-78); AST/SGOT 21 U/L (7-37); BILIRUBIN,DIRECT 0.2 MG/DL (0.0-0.2); BILIRUBIN,TOTAL 0.5 MG/DL (0.2-1.0); C REACTIVE PROTEIN QUANTITATIV 3.14 MG/DL (0.00-0.30); MAGNESIUM LEVEL 2.2 MG/DL (1.8-2.4); TOTAL PROTEIN 5.4 GM/DL (6.4-8.2)
[2017-09-21] MEDS: DONEPEZIL 5 MG TAB PO (09:58)
[2017-09-21] MEDS: EZETIMIBE 10 MG TAB (ZETIA) PO (09:58)
[2017-09-21] MEDS: DABIGATRAN ETEXILATE 75 MG CAP (PRADAXA) PO ×2 (09:58→20:30)
[2017-09-21] MEDS: ASPIRIN 81 MG CHEW TABLET PO (09:58)
[2017-09-21] MEDS: PREGABALIN 50 MG CAP (LYRICA) PO (09:58)
[2017-09-21] MEDS: CLOPIDOGREL 75 MG TAB PO (09:58)
[2017-09-21 12:18] LABS: BEDSIDE GLUCOSE 68 MG/DL (83-110)
[2017-09-21 17:29] LABS: BEDSIDE GLUCOSE 185 MG/DL (83-110)
[2017-09-21 20:30] LABS: BEDSIDE GLUCOSE 153 MG/DL (83-110)
[2017-09-21] MEDS: ROSUVASTATIN 10 MG TAB (CRESTOR) PO (20:30)
[2017-09-21] MEDS: LEVEMIR (INSULIN DETEMIR) 1 UNITS/0.01ML SC (20:30)
[2017-09-22] MEDS: CEFTAROLINE FOSAMIL 400 MG in D5W MINI-BAG PLUS 50 ML IV ×2 (03:13→12:20)
[2017-09-22 05:46] LABS: BASO % 0.3 % (0.0-1.0); EOS # 0.1 10^3/uL (0.0-0.50); HEMATOCRIT 26.8 % (42.0-52.0); HEMOGLOBIN 8.5 g/dl (13.5-17.5); IMMATURE GRANULOCYTE % 0.5 % (0-3.0); LYMPH # 1.9 10^3/uL (1.5-4.5); LYMPH % 18.9 % (24.0-44.0); MEAN CORPUSCULAR HEMOGLOBIN 27.4 pg (27.0-33.0); MEAN CORPUSCULAR HGB CONC 31.7 g/dl (32.0-36.5); MEAN CORPUSCULAR VOLUME 86.5 fl (80.0-96.0); MONO % 10.3 % (0.0-5.0); NEUTROPHILS # 6.8 10^3/uL (1.8-7.7); PLATELET COUNT, AUTOMATED 172 10^3/uL (150-450); RED CELL DISTRIBUTION WIDTH 13.9 % (11.5-14.5); WHITE BLOOD COUNT 9.9 10^3/uL (4.0-10.0)
[2017-09-22 06:03] LABS: ANION GAP 4 MEQ/L (8-16); BLOOD UREA NITROGEN 18 MG/DL (7-18); CALCIUM LEVEL 8.6 MG/DL (8.8-10.2); CARBON DIOXIDE LEVEL 26 MEQ/L (21-32); CHLORIDE LEVEL 108 MEQ/L (98-107); CREATININE FOR GFR 1.77 MG/DL (0.70-1.30); GLOMERULAR FILTRATION RATE 39.5 (>35); GLUCOSE, FASTING 92 MG/DL (70-100); POTASSIUM SERUM 4.3 MEQ/L (3.5-5.1); SODIUM LEVEL 138 MEQ/L (136-145)
[2017-09-22] MEDS: HumaLOG INSULIN (NovoLOG) PER UNIT SC ×4 (07:30→21:25)
[2017-09-22] MEDS: CLOPIDOGREL 75 MG TAB PO (08:50)
[2017-09-22] MEDS: ASPIRIN 81 MG CHEW TABLET PO (08:50)
[2017-09-22] MEDS: PREGABALIN 50 MG CAP (LYRICA) PO (08:50)
[2017-09-22] MEDS: DABIGATRAN ETEXILATE 75 MG CAP (PRADAXA) PO ×2 (08:50→21:24)
[2017-09-22] MEDS: EZETIMIBE 10 MG TAB (ZETIA) PO (08:50)
[2017-09-22 12:06] LABS: BEDSIDE GLUCOSE 214 MG/DL (83-110)
[2017-09-22 17:09] LABS: BEDSIDE GLUCOSE 86 MG/DL (83-110)
[2017-09-22 20:52] LABS: BEDSIDE GLUCOSE 251 MG/DL (83-110)
[2017-09-22] MEDS: ROSUVASTATIN 10 MG TAB (CRESTOR) PO (21:24)
[2017-09-22] MEDS: LEVEMIR (INSULIN DETEMIR) 1 UNITS/0.01ML SC (21:25)
[2017-09-22] MEDS: ACETAMINOPHEN TAB 650MG DOSE (2X325MG) PO (21:30)
[2017-09-23 00:22] LABS: ANION GAP 5 MEQ/L (8-16); BLOOD UREA NITROGEN 21 MG/DL (7-18); CALCIUM LEVEL 8.4 MG/DL (8.8-10.2); CARBON DIOXIDE LEVEL 22 MEQ/L (21-32); CHLORIDE LEVEL 108 MEQ/L (98-107); CREATININE FOR GFR 1.85 MG/DL (0.70-1.30); GLOMERULAR FILTRATION RATE 37.5 (>35); GLUCOSE, FASTING 211 MG/DL (70-100); MAGNESIUM LEVEL 2.2 MG/DL (1.8-2.4); PHOSPHORUS LEVEL 2.8 MG/DL (2.5-4.9); POTASSIUM SERUM 4.7 MEQ/L (3.5-5.1); SODIUM LEVEL 135 MEQ/L (136-145)
[2017-09-23] MEDS: CEFTAROLINE FOSAMIL 400 MG in D5W MINI-BAG PLUS 50 ML IV ×2 (01:53→12:26)
[2017-09-23 05:12] LABS: BASO % 0.2 % (0.0-1.0); EOS # 0.1 10^3/uL (0.0-0.50); EOS % 0.9 % (0.0-3.0); HEMATOCRIT 27.6 % (42.0-52.0); HEMOGLOBIN 8.8 g/dl (13.5-17.5); IMMATURE GRANULOCYTE % 0.3 % (0-3.0); LYMPH # 1.9 10^3/uL (1.5-4.5); LYMPH % 21.7 % (24.0-44.0); MEAN CORPUSCULAR HEMOGLOBIN 27.2 pg (27.0-33.0); MEAN CORPUSCULAR HGB CONC 31.9 g/dl (32.0-36.5); MEAN CORPUSCULAR VOLUME 85.2 fl (80.0-96.0); MONO # 0.9 10^3/uL (0.0-0.8); NEUTROPHILS # 5.8 10^3/uL (1.8-7.7); NEUTROPHILS % 66.9 % (36.0-66.0); PLATELET COUNT, AUTOMATED 179 10^3/uL (150-450); RED BLOOD COUNT 3.24 10^6/uL (4.30-6.10); RED CELL DISTRIBUTION WIDTH 13.9 % (11.5-14.5); WHITE BLOOD COUNT 8.7 10^3/uL (4.0-10.0)
[2017-09-23 05:34] LABS: ANION GAP 6 MEQ/L (8-16); BLOOD UREA NITROGEN 21 MG/DL (7-18); CALCIUM LEVEL 8.6 MG/DL (8.8-10.2); CARBON DIOXIDE LEVEL 23 MEQ/L (21-32); CHLORIDE LEVEL 109 MEQ/L (98-107); CREATININE FOR GFR 1.78 MG/DL (0.70-1.30); GLOMERULAR FILTRATION RATE 39.2 (>35); GLUCOSE, FASTING 76 MG/DL (70-100); POTASSIUM SERUM 4.6 MEQ/L (3.5-5.1); SODIUM LEVEL 138 MEQ/L (136-145)
[2017-09-23] MEDS: HumaLOG INSULIN (NovoLOG) PER UNIT SC ×4 (07:30→21:26)
[2017-09-23] MEDS: PREGABALIN 50 MG CAP (LYRICA) PO (08:41)
[2017-09-23] MEDS: ASPIRIN 81 MG CHEW TABLET PO (08:41)
[2017-09-23] MEDS: CLOPIDOGREL 75 MG TAB PO (08:41)
[2017-09-23] MEDS: EZETIMIBE 10 MG TAB (ZETIA) PO (08:41)
[2017-09-23] MEDS: DABIGATRAN ETEXILATE 75 MG CAP (PRADAXA) PO ×2 (08:42→21:25)
[2017-09-23 11:30] LABS: BEDSIDE GLUCOSE 264 MG/DL (83-110)
[2017-09-23 16:45] LABS: BEDSIDE GLUCOSE 203 MG/DL (83-110)
[2017-09-23 20:14] LABS: BEDSIDE GLUCOSE 158 MG/DL (83-110)
[2017-09-23] MEDS: ROSUVASTATIN 10 MG TAB (CRESTOR) PO (21:26)
[2017-09-23] MEDS: LEVEMIR (INSULIN DETEMIR) 1 UNITS/0.01ML SC (21:27)
[2017-09-24] MEDS: CEFTAROLINE FOSAMIL 400 MG in D5W MINI-BAG PLUS 50 ML IV ×2 (01:19→13:27)
[2017-09-24 05:46] LABS: BASO % 0.3 % (0.0-1.0); EOS # 0.1 10^3/uL (0.0-0.50); EOS % 0.9 % (0.0-3.0); HEMATOCRIT 25.3 % (42.0-52.0); HEMOGLOBIN 8.2 g/dl (13.5-17.5); IMMATURE GRANULOCYTE % 0.5 % (0-3.0); LYMPH # 1.6 10^3/uL (1.5-4.5); LYMPH % 17.9 % (24.0-44.0); MEAN CORPUSCULAR HEMOGLOBIN 27.9 pg (27.0-33.0); MEAN CORPUSCULAR HGB CONC 32.4 g/dl (32.0-36.5); MEAN CORPUSCULAR VOLUME 86.1 fl (80.0-96.0); MONO % 11.9 % (0.0-5.0); NEUTROPHILS # 5.9 10^3/uL (1.8-7.7); NEUTROPHILS % 68.5 % (36.0-66.0); PLATELET COUNT, AUTOMATED 171 10^3/uL (150-450); RED BLOOD COUNT 2.94 10^6/uL (4.30-6.10); RED CELL DISTRIBUTION WIDTH 13.9 % (11.5-14.5); WHITE BLOOD COUNT 8.7 10^3/uL (4.0-10.0)
[2017-09-24 06:00] LABS: ANION GAP 5 MEQ/L (8-16); BLOOD UREA NITROGEN 19 MG/DL (7-18); CALCIUM LEVEL 8.3 MG/DL (8.8-10.2); CARBON DIOXIDE LEVEL 24 MEQ/L (21-32); CHLORIDE LEVEL 105 MEQ/L (98-107); CREATININE FOR GFR 1.78 MG/DL (0.70-1.30); GLOMERULAR FILTRATION RATE 39.2 (>35); GLUCOSE, FASTING 171 MG/DL (70-100); POTASSIUM SERUM 4.5 MEQ/L (3.5-5.1); SODIUM LEVEL 134 MEQ/L (136-145)
[2017-09-24] MEDS: HumaLOG INSULIN (NovoLOG) PER UNIT SC ×4 (07:30→20:40)
[2017-09-24] MEDS: EZETIMIBE 10 MG TAB (ZETIA) PO (09:35)
[2017-09-24] MEDS: PREGABALIN 50 MG CAP (LYRICA) PO (09:36)
[2017-09-24] MEDS: DABIGATRAN ETEXILATE 75 MG CAP (PRADAXA) PO (09:36)
[2017-09-24] MEDS: ASPIRIN 81 MG CHEW TABLET PO (09:36)
[2017-09-24 11:59] LABS: BEDSIDE GLUCOSE 187 MG/DL (83-110)
[2017-09-24 16:34] LABS: PARTIAL THROMBOPLASTIN TIME 76.5 SECONDS (26.8-37.9)
[2017-09-24 16:55] LABS: BEDSIDE GLUCOSE 169 MG/DL (83-110)
[2017-09-24] MEDS: LEVEMIR (INSULIN DETEMIR) 1 UNITS/0.01ML SC (20:41)
[2017-09-24] MEDS: HEPARIN DRIP 25,000 UNITS in APPROPRIATE DILUENT 1 EA IV (21:36)
[2017-09-24] MEDS: ROSUVASTATIN 10 MG TAB (CRESTOR) PO (21:40)
[2017-09-25] MEDS: CEFTAROLINE FOSAMIL 400 MG in D5W MINI-BAG PLUS 50 ML IV ×2 (00:12→13:00)
[2017-09-25 03:17] LABS: BASO % 0.2 % (0.0-1.0); EOS # 0.1 10^3/uL (0.0-0.50); EOS % 1.1 % (0.0-3.0); HEMATOCRIT 25.5 % (42.0-52.0); IMMATURE GRANULOCYTE % 0.4 % (0-3.0); LYMPH # 1.9 10^3/uL (1.5-4.5); LYMPH % 22.5 % (24.0-44.0); MEAN CORPUSCULAR HGB CONC 31.4 g/dl (32.0-36.5); MEAN CORPUSCULAR VOLUME 86.1 fl (80.0-96.0); MONO # 0.8 10^3/uL (0.0-0.8); MONO % 9.8 % (0.0-5.0); NEUTROPHILS # 5.5 10^3/uL (1.8-7.7); PLATELET COUNT, AUTOMATED 166 10^3/uL (150-450); RED BLOOD COUNT 2.96 10^6/uL (4.30-6.10); RED CELL DISTRIBUTION WIDTH 13.8 % (11.5-14.5); WHITE BLOOD COUNT 8.3 10^3/uL (4.0-10.0)
[2017-09-25 03:34] LABS: PARTIAL THROMBOPLASTIN TIME 152.6 SECONDS (26.8-37.9)
[2017-09-25 03:37] LABS: ANION GAP 6 MEQ/L (8-16); BLOOD UREA NITROGEN 20 MG/DL (7-18); CALCIUM LEVEL 8.4 MG/DL (8.8-10.2); CARBON DIOXIDE LEVEL 23 MEQ/L (21-32); CHLORIDE LEVEL 104 MEQ/L (98-107); CREATININE FOR GFR 1.94 MG/DL (0.70-1.30); GLOMERULAR FILTRATION RATE 35.5 (>35); GLUCOSE, FASTING 271 MG/DL (70-100); POTASSIUM SERUM 4.7 MEQ/L (3.5-5.1); SODIUM LEVEL 133 MEQ/L (136-145)
[2017-09-25] MEDS: HumaLOG INSULIN (NovoLOG) PER UNIT SC ×4 (09:08→22:33)
[2017-09-25] MEDS: PREGABALIN 50 MG CAP (LYRICA) PO (09:08)
[2017-09-25] MEDS: ASPIRIN 81 MG CHEW TABLET PO (09:08)
[2017-09-25] MEDS: EZETIMIBE 10 MG TAB (ZETIA) PO (09:09)
[2017-09-25 11:42] LABS: BEDSIDE GLUCOSE 162 MG/DL (83-110)
[2017-09-25 11:51] LABS: PARTIAL THROMBOPLASTIN TIME 95.5 SECONDS (26.8-37.9)
[2017-09-25] MEDS: LEVEMIR (INSULIN DETEMIR) 1 UNITS/0.01ML SC (22:33)
[2017-09-25] MEDS: ROSUVASTATIN 10 MG TAB (CRESTOR) PO (22:33)
[2017-09-26] MEDS: CEFTAROLINE FOSAMIL 400 MG in D5W MINI-BAG PLUS 50 ML IV (00:04)
[2017-09-26 00:37] LABS: PARTIAL THROMBOPLASTIN TIME 78.9 SECONDS (26.8-37.9)
[2017-09-26 05:25] LABS: HEMATOCRIT 25.5 % (42.0-52.0); HEMOGLOBIN 8.1 g/dl (13.5-17.5); MEAN CORPUSCULAR HEMOGLOBIN 26.6 pg (27.0-33.0); MEAN CORPUSCULAR HGB CONC 31.8 g/dl (32.0-36.5); MEAN CORPUSCULAR VOLUME 83.9 fl (80.0-96.0); PLATELET COUNT, AUTOMATED 175 10^3/uL (150-450); RED BLOOD COUNT 3.04 10^6/uL (4.30-6.10); RED CELL DISTRIBUTION WIDTH 13.8 % (11.5-14.5); WHITE BLOOD COUNT 7.8 10^3/uL (4.0-10.0)
[2017-09-26 05:37] LABS: PARTIAL THROMBOPLASTIN TIME 89.4 SECONDS (26.8-37.9)
[2017-09-26 05:41] LABS: ANION GAP 8 MEQ/L (8-16); BLOOD UREA NITROGEN 21 MG/DL (7-18); CALCIUM LEVEL 8.4 MG/DL (8.8-10.2); CARBON DIOXIDE LEVEL 22 MEQ/L (21-32); CHLORIDE LEVEL 106 MEQ/L (98-107); CREATININE FOR GFR 1.74 MG/DL (0.70-1.30); GLOMERULAR FILTRATION RATE 40.3 (>35); GLUCOSE, FASTING 179 MG/DL (70-100); POTASSIUM SERUM 4.6 MEQ/L (3.5-5.1); SODIUM LEVEL 136 MEQ/L (136-145)
[2017-09-26] MEDS: HumaLOG INSULIN (NovoLOG) PER UNIT SC ×4 (07:32→20:46)
[2017-09-26] MEDS: EZETIMIBE 10 MG TAB (ZETIA) PO (08:32)
[2017-09-26] MEDS: PREGABALIN 50 MG CAP (LYRICA) PO (08:32)
[2017-09-26] MEDS: ASPIRIN 81 MG CHEW TABLET PO (08:33)
[2017-09-26 14:39] LABS: BEDSIDE GLUCOSE 197 MG/DL (83-110)
[2017-09-26 14:39] LABS: BEDSIDE GLUCOSE 293 MG/DL (83-110)
[2017-09-26] MEDS: HEPARIN DRIP 25,000 UNITS in APPROPRIATE DILUENT 1 EA IV (16:04)
[2017-09-26] MEDS: DAKIN'S 0.25% HALF-STRENGTH SOLN 480 ML TOP (17:58)
[2017-09-26 20:42] LABS: BEDSIDE GLUCOSE 309 MG/DL (83-110)
[2017-09-26] MEDS: ROSUVASTATIN 10 MG TAB (CRESTOR) PO (20:45)
[2017-09-26] MEDS: LEVEMIR (INSULIN DETEMIR) 1 UNITS/0.01ML SC (20:45)
[2017-09-27 05:47] LABS: HEMATOCRIT 25.8 % (42.0-52.0); HEMOGLOBIN 8.3 g/dl (13.5-17.5); MEAN CORPUSCULAR HEMOGLOBIN 27.3 pg (27.0-33.0); MEAN CORPUSCULAR HGB CONC 32.2 g/dl (32.0-36.5); MEAN CORPUSCULAR VOLUME 84.9 fl (80.0-96.0); PLATELET COUNT, AUTOMATED 180 10^3/uL (150-450); RED BLOOD COUNT 3.04 10^6/uL (4.30-6.10); RED CELL DISTRIBUTION WIDTH 13.7 % (11.5-14.5); WHITE BLOOD COUNT 8.6 10^3/uL (4.0-10.0)
[2017-09-27 05:58] LABS: PARTIAL THROMBOPLASTIN TIME 58.7 SECONDS (26.8-37.9)
[2017-09-27 06:03] LABS: ANION GAP 5 MEQ/L (8-16); BLOOD UREA NITROGEN 17 MG/DL (7-18); CALCIUM LEVEL 8.6 MG/DL (8.8-10.2); CARBON DIOXIDE LEVEL 25 MEQ/L (21-32); CHLORIDE LEVEL 106 MEQ/L (98-107); CREATININE FOR GFR 1.64 MG/DL (0.70-1.30); GLOMERULAR FILTRATION RATE 43.1 (>35); GLUCOSE, FASTING 151 MG/DL (70-100); POTASSIUM SERUM 4.6 MEQ/L (3.5-5.1); SODIUM LEVEL 136 MEQ/L (136-145)
[2017-09-27] MEDS: HEPARIN SOD (PORCINE) 5000 UNITS/ML VIAL IV (06:29)
[2017-09-27] MEDS: HumaLOG INSULIN (NovoLOG) PER UNIT SC ×4 (07:58→21:43)
[2017-09-27] MEDS: EZETIMIBE 10 MG TAB (ZETIA) PO (09:22)
[2017-09-27] MEDS: PREGABALIN 50 MG CAP (LYRICA) PO (09:22)
[2017-09-27] MEDS: ASPIRIN 81 MG CHEW TABLET PO (09:23)
[2017-09-27 11:17] LABS: BEDSIDE GLUCOSE 183 MG/DL (83-110)
[2017-09-27 12:41] LABS: PARTIAL THROMBOPLASTIN TIME 74.5 SECONDS (26.8-37.9)
[2017-09-27] MEDS: ACETAMINOPHEN TAB 650MG DOSE (2X325MG) PO (14:16)
[2017-09-27] MEDS: HEPARIN DRIP 25,000 UNITS in APPROPRIATE DILUENT 1 EA IV (15:05)
[2017-09-27 17:07] LABS: BEDSIDE GLUCOSE 302 MG/DL (83-110)
[2017-09-27 18:55] LABS: PARTIAL THROMBOPLASTIN TIME 71.7 SECONDS (26.8-37.9)
[2017-09-27 21:15] LABS: BEDSIDE GLUCOSE 370 MG/DL (83-110)
[2017-09-27] MEDS: ROSUVASTATIN 10 MG TAB (CRESTOR) PO (21:42)
[2017-09-27] MEDS: LEVEMIR (INSULIN DETEMIR) 1 UNITS/0.01ML SC (21:43)
[2017-09-28] MEDS ORDERED: SLF 3 ML SYR IV (04:00)
[2017-09-28] MEDS: SLF 3 ML SYR IV ×3 (05:01→20:49)
[2017-09-28 05:22] LABS: HEMATOCRIT 26.3 % (42.0-52.0); HEMOGLOBIN 8.3 g/dl (13.5-17.5); MEAN CORPUSCULAR HEMOGLOBIN 26.7 pg (27.0-33.0); MEAN CORPUSCULAR HGB CONC 31.6 g/dl (32.0-36.5); MEAN CORPUSCULAR VOLUME 84.6 fl (80.0-96.0); PLATELET COUNT, AUTOMATED 194 10^3/uL (150-450); RED BLOOD COUNT 3.11 10^6/uL (4.30-6.10); RED CELL DISTRIBUTION WIDTH 13.8 % (11.5-14.5); WHITE BLOOD COUNT 9.4 10^3/uL (4.0-10.0)
[2017-09-28 05:33] LABS: PARTIAL THROMBOPLASTIN TIME 63.7 SECONDS (26.8-37.9)
[2017-09-28 05:50] LABS: ANION GAP 7 MEQ/L (8-16); BLOOD UREA NITROGEN 16 MG/DL (7-18); CALCIUM LEVEL 8.7 MG/DL (8.8-10.2); CARBON DIOXIDE LEVEL 24 MEQ/L (21-32); CHLORIDE LEVEL 107 MEQ/L (98-107); CREATININE FOR GFR 1.67 MG/DL (0.70-1.30); GLOMERULAR FILTRATION RATE 42.2 (>35); GLUCOSE, FASTING 192 MG/DL (70-100); POTASSIUM SERUM 4.7 MEQ/L (3.5-5.1); SODIUM LEVEL 138 MEQ/L (136-145)
[2017-09-28] MEDS: HumaLOG INSULIN (NovoLOG) PER UNIT SC ×4 (09:03→20:48)
[2017-09-28] MEDS: LEVEMIR (INSULIN DETEMIR) 1 UNITS/0.01ML SC (09:03)
[2017-09-28] MEDS: EZETIMIBE 10 MG TAB (ZETIA) PO (09:04)
[2017-09-28] MEDS: PREGABALIN 50 MG CAP (LYRICA) PO (09:04)
[2017-09-28] MEDS: ASPIRIN 81 MG CHEW TABLET PO (09:04)
[2017-09-28 11:44] LABS: BEDSIDE GLUCOSE 178 MG/DL (83-110)
[2017-09-28] MEDS: HEPARIN DRIP 25,000 UNITS in APPROPRIATE DILUENT 1 EA IV ×2 (12:19→14:11)
[2017-09-28 13:15] LABS: PARTIAL THROMBOPLASTIN TIME 48.8 SECONDS (26.8-37.9)
[2017-09-28] MEDS: HEPARIN SOD (PORCINE) 5000 UNITS/ML VIAL IV (14:19)
[2017-09-28 17:06] LABS: BEDSIDE GLUCOSE 293 MG/DL (83-110)
[2017-09-28 20:23] LABS: BEDSIDE GLUCOSE 280 MG/DL (83-110)
[2017-09-28] MEDS: ACETAMINOPHEN TAB 650MG DOSE (2X325MG) PO (20:48)
[2017-09-28] MEDS: ROSUVASTATIN 10 MG TAB (CRESTOR) PO (20:48)
[2017-09-28] MEDS: DABIGATRAN ETEXILATE 75 MG CAP (PRADAXA) PO (20:49)
[2017-09-28] MEDS: BENZONATATE 100 MG CAP PO (22:12)
[2017-09-29] MEDS: IBUPROFEN 400 MG TAB PO (01:00)
[2017-09-29 01:39] LABS: HEMATOCRIT 24.3 % (42.0-52.0); HEMOGLOBIN 7.7 g/dl (13.5-17.5); MEAN CORPUSCULAR HEMOGLOBIN 27.1 pg (27.0-33.0); MEAN CORPUSCULAR HGB CONC 31.7 g/dl (32.0-36.5); MEAN CORPUSCULAR VOLUME 85.6 fl (80.0-96.0); PLATELET COUNT, AUTOMATED 187 10^3/uL (150-450); RED BLOOD COUNT 2.84 10^6/uL (4.30-6.10); RED CELL DISTRIBUTION WIDTH 13.9 % (11.5-14.5); WHITE BLOOD COUNT 12.7 10^3/uL (4.0-10.0)
[2017-09-29 02:21] LABS: ANION GAP 6 MEQ/L (8-16); BLOOD UREA NITROGEN 18 MG/DL (7-18); C REACTIVE PROTEIN QUANTITATIV 1.61 MG/DL (0.00-0.30); CARBON DIOXIDE LEVEL 23 MEQ/L (21-32); CHLORIDE LEVEL 107 MEQ/L (98-107); GLOMERULAR FILTRATION RATE 38.7 (>35); GLUCOSE, FASTING 244 MG/DL (70-100); MAGNESIUM LEVEL 2.1 MG/DL (1.8-2.4); SODIUM LEVEL 136 MEQ/L (136-145)
[2017-09-29 02:25] LABS: POTASSIUM SERUM 5.2 MEQ/L (3.5-5.1)
[2017-09-29 03:01] LABS: KETONE, URINE AUTO RFX NEGATIVE (NEGATIVE); LEUKOCYTE ESTERASE UR AUTO RFX NEGATIVE (NEGATIVE); MUCUS, URINE RFX SMALL (NEGATIVE); NITRITE, URINE AUTO RFX NEGATIVE (NEGATIVE); RBC, URINE AUTO RFX 2 /HPF (0-3); SPECIFIC GRAVITY UR AUTO RFX 1.021 (1.002-1.035); SQUAM EPITHELIAL CELL UR AURFX 0 /HPF (0-6); WBC, URINE AUTO RFX 2 /HPF (0-3)
[2017-09-29] MEDS: CEFEPIME HCL 1 GM in D5W MINI-BAG PLUS 50 ML IV (03:07)
[2017-09-29] MEDS: VANCOMYCIN HCL 1,000 MG, VIAL MATE ADAPTER 1 EACH in D5W 250 ML IV ×2 (03:51→21:10)
[2017-09-29] MEDS: SLF 3 ML SYR IV ×3 (05:18→22:00)
[2017-09-29] MEDS: VANCOMYCIN HCL 750 MG, VIAL MATE ADAPTER 1 EACH in D5W 250 ML IV (05:18)
[2017-09-29 07:13] LABS: BEDSIDE GLUCOSE 293 MG/DL (83-110)
[2017-09-29] MEDS: LEVEMIR (INSULIN DETEMIR) 1 UNITS/0.01ML SC (07:40)
[2017-09-29] MEDS: DABIGATRAN ETEXILATE 75 MG CAP (PRADAXA) PO ×2 (07:41→21:09)
[2017-09-29] MEDS: PREGABALIN 50 MG CAP (LYRICA) PO (07:41)
[2017-09-29] MEDS: EZETIMIBE 10 MG TAB (ZETIA) PO (07:41)
[2017-09-29] MEDS: BENZONATATE 100 MG CAP PO ×3 (07:41→21:09)
[2017-09-29] MEDS: HumaLOG INSULIN (NovoLOG) PER UNIT SC ×4 (07:41→21:00)
[2017-09-29] MEDS: ASPIRIN 81 MG CHEW TABLET PO (07:41)
[2017-09-29] MEDS: NS 1,000 ML IV ×2 (08:15→13:02)
[2017-09-29] MEDS: SOD POLYSTYRENE SULFONATE SUSP 15 GM/60 ML UD PO (08:52)
[2017-09-29 09:13] LABS: IMMEDIATE SPIN CROSSMATCH 1 1
[2017-09-29 12:19] LABS: BEDSIDE GLUCOSE 228 MG/DL (83-110)
[2017-09-29 14:05] LABS: HEMATOCRIT 30.4 % (42.0-52.0); HEMOGLOBIN 9.5 g/dl (13.5-17.5); MEAN CORPUSCULAR HEMOGLOBIN 27.3 pg (27.0-33.0); MEAN CORPUSCULAR HGB CONC 31.3 g/dl (32.0-36.5); MEAN CORPUSCULAR VOLUME 87.4 fl (80.0-96.0); PLATELET COUNT, AUTOMATED 199 10^3/uL (150-450); RED BLOOD COUNT 3.48 10^6/uL (4.30-6.10); RED CELL DISTRIBUTION WIDTH 14.1 % (11.5-14.5); WHITE BLOOD COUNT 15.1 10^3/uL (4.0-10.0)
[2017-09-29 14:25] LABS: ANION GAP 7 MEQ/L (8-16); BLOOD UREA NITROGEN 20 MG/DL (7-18); CALCIUM LEVEL 8.4 MG/DL (8.8-10.2); CARBON DIOXIDE LEVEL 23 MEQ/L (21-32); CHLORIDE LEVEL 105 MEQ/L (98-107); CREATININE FOR GFR 1.98 MG/DL (0.70-1.30); GLOMERULAR FILTRATION RATE 34.7 (>35); GLUCOSE, FASTING 270 MG/DL (70-100); SODIUM LEVEL 135 MEQ/L (136-145)
[2017-09-29 14:26] LABS: POTASSIUM SERUM 5.2 MEQ/L (3.5-5.1)
[2017-09-29] MEDS: ACETAMINOPHEN TAB 650MG DOSE (2X325MG) PO ×2 (14:27→19:38)
[2017-09-29 16:18] LABS: BEDSIDE GLUCOSE 190 MG/DL (83-110)
[2017-09-29] MEDS: ROSUVASTATIN 10 MG TAB (CRESTOR) PO (21:10)
[2017-09-29 21:26] LABS: BEDSIDE GLUCOSE 169 MG/DL (83-110)
[2017-09-30] MEDS: CEFEPIME HCL 1 GM in D5W MINI-BAG PLUS 50 ML IV (02:01)
[2017-09-30] MEDS: ACETAMINOPHEN TAB 650MG DOSE (2X325MG) PO ×2 (04:16→16:40)
[2017-09-30 05:53] LABS: HEMATOCRIT 26.2 % (42.0-52.0); HEMOGLOBIN 8.5 g/dl (13.5-17.5); MEAN CORPUSCULAR HEMOGLOBIN 27.2 pg (27.0-33.0); MEAN CORPUSCULAR HGB CONC 32.4 g/dl (32.0-36.5); PLATELET COUNT, AUTOMATED 167 10^3/uL (150-450); RED BLOOD COUNT 3.12 10^6/uL (4.30-6.10); RED CELL DISTRIBUTION WIDTH 14.2 % (11.5-14.5); WHITE BLOOD COUNT 10.6 10^3/uL (4.0-10.0)
[2017-09-30] MEDS: FUROSEMIDE 40 MG/4 ML VIAL (J1940) IV (06:00)
[2017-09-30] MEDS: SLF 3 ML SYR IV ×3 (06:00→20:47)
[2017-09-30 06:11] LABS: ANION GAP 6 MEQ/L (8-16); BLOOD UREA NITROGEN 19 MG/DL (7-18); CALCIUM LEVEL 8.4 MG/DL (8.8-10.2); CARBON DIOXIDE LEVEL 23 MEQ/L (21-32); CHLORIDE LEVEL 105 MEQ/L (98-107); CREATININE FOR GFR 1.81 MG/DL (0.70-1.30); GLOMERULAR FILTRATION RATE 38.5 (>35); GLUCOSE, FASTING 171 MG/DL (70-100); POTASSIUM SERUM 4.9 MEQ/L (3.5-5.1); SODIUM LEVEL 134 MEQ/L (136-145)
[2017-09-30] MEDS: HumaLOG INSULIN (NovoLOG) PER UNIT SC ×4 (07:48→20:47)
[2017-09-30] MEDS: LEVEMIR (INSULIN DETEMIR) 1 UNITS/0.01ML SC (09:03)
[2017-09-30] MEDS: ASPIRIN 81 MG CHEW TABLET PO (09:04)
[2017-09-30] MEDS: BENZONATATE 100 MG CAP PO ×3 (09:04→20:46)
[2017-09-30] MEDS: PREGABALIN 50 MG CAP (LYRICA) PO (09:04)
[2017-09-30] MEDS: DABIGATRAN ETEXILATE 75 MG CAP (PRADAXA) PO ×2 (09:04→20:46)
[2017-09-30] MEDS: EZETIMIBE 10 MG TAB (ZETIA) PO (09:04)
[2017-09-30 11:48] LABS: BEDSIDE GLUCOSE 237 MG/DL (83-110)
[2017-09-30 16:37] LABS: BEDSIDE GLUCOSE 240 MG/DL (83-110)
[2017-09-30] MEDS: VANCOMYCIN HCL 1,000 MG, VIAL MATE ADAPTER 1 EACH in D5W 250 ML IV (16:41)
[2017-09-30 20:42] LABS: BEDSIDE GLUCOSE 134 MG/DL (83-110)
[2017-09-30] MEDS: ROSUVASTATIN 10 MG TAB (CRESTOR) PO (20:46)
[2017-10-01] MEDS: CEFEPIME HCL 1 GM in D5W MINI-BAG PLUS 50 ML IV (03:46)
[2017-10-01] MEDS: SLF 3 ML SYR IV ×3 (05:33→20:00)
[2017-10-01 06:01] LABS: ANION GAP 6 MEQ/L (8-16); BLOOD UREA NITROGEN 20 MG/DL (7-18); CALCIUM LEVEL 8.5 MG/DL (8.8-10.2); CARBON DIOXIDE LEVEL 21 MEQ/L (21-32); CHLORIDE LEVEL 107 MEQ/L (98-107); CREATININE FOR GFR 1.76 MG/DL (0.70-1.30); GLOMERULAR FILTRATION RATE 39.8 (>35); GLUCOSE, FASTING 97 MG/DL (70-100); POTASSIUM SERUM 4.7 MEQ/L (3.5-5.1); SODIUM LEVEL 134 MEQ/L (136-145)
[2017-10-01 06:02] LABS: HEMATOCRIT 31.2 % (42.0-52.0); HEMOGLOBIN 9.6 g/dl (13.5-17.5); MEAN CORPUSCULAR HEMOGLOBIN 27.2 pg (27.0-33.0); MEAN CORPUSCULAR HGB CONC 30.8 g/dl (32.0-36.5); MEAN CORPUSCULAR VOLUME 88.4 fl (80.0-96.0); PLATELET COUNT, AUTOMATED 159 10^3/uL (150-450); RED BLOOD COUNT 3.53 10^6/uL (4.30-6.10); RED CELL DISTRIBUTION WIDTH 14.6 % (11.5-14.5); WHITE BLOOD COUNT 7.8 10^3/uL (4.0-10.0)
[2017-10-01] MEDS: HumaLOG INSULIN (NovoLOG) PER UNIT SC ×4 (08:46→20:00)
[2017-10-01] MEDS: BENZONATATE 100 MG CAP PO ×3 (08:47→20:00)
[2017-10-01] MEDS: EZETIMIBE 10 MG TAB (ZETIA) PO (08:47)
[2017-10-01] MEDS: DABIGATRAN ETEXILATE 75 MG CAP (PRADAXA) PO ×2 (08:47→20:00)
[2017-10-01] MEDS: ASPIRIN 81 MG CHEW TABLET PO (08:47)
[2017-10-01] MEDS: PREGABALIN 50 MG CAP (LYRICA) PO (08:48)
[2017-10-01] MEDS: LEVEMIR (INSULIN DETEMIR) 1 UNITS/0.01ML SC (08:48)
[2017-10-01] MEDS: ACETAMINOPHEN TAB 650MG DOSE (2X325MG) PO ×2 (09:20→19:56)
[2017-10-01] MEDS: VANCOMYCIN HCL 1,000 MG, VIAL MATE ADAPTER 1 EACH in D5W 250 ML IV (10:23)
[2017-10-01 11:39] LABS: BEDSIDE GLUCOSE 211 MG/DL (83-110)
[2017-10-01 16:55] LABS: BEDSIDE GLUCOSE 141 MG/DL (83-110)
[2017-10-01 19:59] LABS: BEDSIDE GLUCOSE 199 MG/DL (83-110)
[2017-10-01] MEDS: ROSUVASTATIN 10 MG TAB (CRESTOR) PO (20:00)
[2017-10-02] MEDS: CEFEPIME HCL 1 GM in D5W MINI-BAG PLUS 50 ML IV (03:10)
[2017-10-02] MEDS: VANCOMYCIN HCL 1,000 MG, VIAL MATE ADAPTER 1 EACH in D5W 250 ML IV ×2 (03:50→21:43)
[2017-10-02] MEDS: SLF 3 ML SYR IV ×3 (05:10→21:43)
[2017-10-02 05:52] LABS: HEMATOCRIT 28.9 % (42.0-52.0); HEMOGLOBIN 9.1 g/dl (13.5-17.5); MEAN CORPUSCULAR HEMOGLOBIN 26.7 pg (27.0-33.0); MEAN CORPUSCULAR HGB CONC 31.5 g/dl (32.0-36.5); MEAN CORPUSCULAR VOLUME 84.8 fl (80.0-96.0); PLATELET COUNT, AUTOMATED 208 10^3/uL (150-450); RED BLOOD COUNT 3.41 10^6/uL (4.30-6.10); RED CELL DISTRIBUTION WIDTH 14.3 % (11.5-14.5); WHITE BLOOD COUNT 7.8 10^3/uL (4.0-10.0)
[2017-10-02 06:37] LABS: ANION GAP 8 MEQ/L (8-16); BLOOD UREA NITROGEN 25 MG/DL (7-18); CALCIUM LEVEL 8.9 MG/DL (8.8-10.2); CARBON DIOXIDE LEVEL 26 MEQ/L (21-32); CHLORIDE LEVEL 106 MEQ/L (98-107); CREATININE FOR GFR 1.64 MG/DL (0.70-1.30); GLOMERULAR FILTRATION RATE 43.1 (>35); GLUCOSE, FASTING 160 MG/DL (70-100); POTASSIUM SERUM 4.5 MEQ/L (3.5-5.1); SODIUM LEVEL 140 MEQ/L (136-145)
[2017-10-02] MEDS: LEVEMIR (INSULIN DETEMIR) 1 UNITS/0.01ML SC (09:03)
[2017-10-02] MEDS: DABIGATRAN ETEXILATE 75 MG CAP (PRADAXA) PO ×2 (09:04→21:42)
[2017-10-02] MEDS: PREGABALIN 50 MG CAP (LYRICA) PO (09:04)
[2017-10-02] MEDS: HumaLOG INSULIN (NovoLOG) PER UNIT SC ×4 (09:04→21:00)
[2017-10-02] MEDS: EZETIMIBE 10 MG TAB (ZETIA) PO (09:04)
[2017-10-02] MEDS: BENZONATATE 100 MG CAP PO ×3 (09:04→21:42)
[2017-10-02] MEDS: ASPIRIN 81 MG CHEW TABLET PO (09:06)
[2017-10-02 11:57] LABS: BEDSIDE GLUCOSE 189 MG/DL (83-110)
[2017-10-02 17:34] LABS: BEDSIDE GLUCOSE 353 MG/DL (83-110)
[2017-10-02 20:50] LABS: BEDSIDE GLUCOSE 68 MG/DL (83-110)
[2017-10-02 21:32] LABS: BEDSIDE GLUCOSE 71 MG/DL (83-110)
[2017-10-02] MEDS: ROSUVASTATIN 10 MG TAB (CRESTOR) PO (21:42)
[2017-10-02] MEDS: ACETAMINOPHEN TAB 650MG DOSE (2X325MG) PO (21:43)
[2017-10-02 23:38] LABS: BEDSIDE GLUCOSE 198 MG/DL (83-110)
[2017-10-03] MEDS: CEFEPIME HCL 1 GM in D5W MINI-BAG PLUS 50 ML IV (03:12)
[2017-10-03] MEDS: SLF 3 ML SYR IV ×3 (05:02→20:55)
[2017-10-03 05:12] LABS: HEMATOCRIT 26.8 % (42.0-52.0); HEMOGLOBIN 8.6 g/dl (13.5-17.5); MEAN CORPUSCULAR HGB CONC 32.1 g/dl (32.0-36.5); PLATELET COUNT, AUTOMATED 209 10^3/uL (150-450); RED BLOOD COUNT 3.19 10^6/uL (4.30-6.10); RED CELL DISTRIBUTION WIDTH 14.3 % (11.5-14.5); WHITE BLOOD COUNT 8.3 10^3/uL (4.0-10.0)
[2017-10-03 05:37] LABS: ANION GAP 7 MEQ/L (8-16); BLOOD UREA NITROGEN 25 MG/DL (7-18); C REACTIVE PROTEIN QUANTITATIV 0.66 MG/DL (0.00-0.30); CALCIUM LEVEL 8.4 MG/DL (8.8-10.2); CARBON DIOXIDE LEVEL 24 MEQ/L (21-32); CHLORIDE LEVEL 108 MEQ/L (98-107); CREATININE FOR GFR 1.64 MG/DL (0.70-1.30); GLOMERULAR FILTRATION RATE 43.1 (>35); GLUCOSE, FASTING 133 MG/DL (70-100); MAGNESIUM LEVEL 2.2 MG/DL (1.8-2.4); POTASSIUM SERUM 4.2 MEQ/L (3.5-5.1); SODIUM LEVEL 139 MEQ/L (136-145)
[2017-10-03] MEDS: HumaLOG INSULIN (NovoLOG) PER UNIT SC ×4 (07:37→20:55)
[2017-10-03] MEDS: EZETIMIBE 10 MG TAB (ZETIA) PO (08:35)
[2017-10-03] MEDS: PREGABALIN 50 MG CAP (LYRICA) PO (08:35)
[2017-10-03] MEDS: ASPIRIN 81 MG CHEW TABLET PO (08:35)
[2017-10-03] MEDS: LEVEMIR (INSULIN DETEMIR) 1 UNITS/0.01ML SC (08:36)
[2017-10-03] MEDS: DABIGATRAN ETEXILATE 75 MG CAP (PRADAXA) PO ×2 (08:42→20:55)
[2017-10-03] MEDS: BENZONATATE 100 MG CAP PO ×3 (08:42→20:55)
[2017-10-03] MEDS: ACETAMINOPHEN TAB 650MG DOSE (2X325MG) PO (10:14)
[2017-10-03 12:07] LABS: BEDSIDE GLUCOSE 293 MG/DL (83-110)
[2017-10-03] MEDS: VANCOMYCIN HCL 1,000 MG, VIAL MATE ADAPTER 1 EACH in D5W 250 ML IV (16:37)
[2017-10-03 17:07] LABS: BEDSIDE GLUCOSE 134 MG/DL (83-110)
[2017-10-03 20:07] LABS: BEDSIDE GLUCOSE 184 MG/DL (83-110)
[2017-10-03] MEDS: ROSUVASTATIN 10 MG TAB (CRESTOR) PO (20:55)
[2017-10-04] MEDS: CEFEPIME HCL 1 GM in D5W MINI-BAG PLUS 50 ML IV (04:00)
[2017-10-04] MEDS: SLF 3 ML SYR IV ×3 (06:00→22:00)
[2017-10-04 06:14] LABS: HEMATOCRIT 26.7 % (42.0-52.0); HEMOGLOBIN 8.5 g/dl (13.5-17.5); MEAN CORPUSCULAR HEMOGLOBIN 27.2 pg (27.0-33.0); MEAN CORPUSCULAR HGB CONC 31.8 g/dl (32.0-36.5); MEAN CORPUSCULAR VOLUME 85.3 fl (80.0-96.0); PLATELET COUNT, AUTOMATED 197 10^3/uL (150-450); RED BLOOD COUNT 3.13 10^6/uL (4.30-6.10); RED CELL DISTRIBUTION WIDTH 14.5 % (11.5-14.5); WHITE BLOOD COUNT 9.1 10^3/uL (4.0-10.0)
[2017-10-04 06:42] LABS: ANION GAP 6 MEQ/L (8-16); BLOOD UREA NITROGEN 23 MG/DL (7-18); CALCIUM LEVEL 8.7 MG/DL (8.8-10.2); CARBON DIOXIDE LEVEL 23 MEQ/L (21-32); CHLORIDE LEVEL 109 MEQ/L (98-107); CREATININE FOR GFR 1.46 MG/DL (0.70-1.30); GLOMERULAR FILTRATION RATE 49.3 (>35); GLUCOSE, FASTING 165 MG/DL (70-100); POTASSIUM SERUM 4.5 MEQ/L (3.5-5.1); SODIUM LEVEL 138 MEQ/L (136-145)
[2017-10-04] MEDS: HumaLOG INSULIN (NovoLOG) PER UNIT SC ×4 (09:20→20:32)
[2017-10-04] MEDS: LEVEMIR (INSULIN DETEMIR) 1 UNITS/0.01ML SC (09:20)
[2017-10-04] MEDS: DABIGATRAN ETEXILATE 75 MG CAP (PRADAXA) PO ×2 (09:21→20:32)
[2017-10-04] MEDS: ASPIRIN 81 MG CHEW TABLET PO (09:21)
[2017-10-04] MEDS: EZETIMIBE 10 MG TAB (ZETIA) PO (09:21)
[2017-10-04] MEDS: BENZONATATE 100 MG CAP PO ×3 (09:21→20:32)
[2017-10-04] MEDS: PREGABALIN 50 MG CAP (LYRICA) PO (09:21)
[2017-10-04] MEDS: DAKIN'S 0.25% HALF-STRENGTH SOLN 480 ML TOP (17:50)
[2017-10-04 20:30] LABS: BEDSIDE GLUCOSE 199 MG/DL (83-110)
[2017-10-04] MEDS: ROSUVASTATIN 10 MG TAB (CRESTOR) PO (20:32)
[2017-10-05] MEDS: SLF 3 ML SYR IV ×3 (05:15→20:33)
[2017-10-05 05:54] LABS: HEMATOCRIT 27.6 % (42.0-52.0); HEMOGLOBIN 8.6 g/dl (13.5-17.5); MEAN CORPUSCULAR HEMOGLOBIN 26.5 pg (27.0-33.0); MEAN CORPUSCULAR HGB CONC 31.2 g/dl (32.0-36.5); MEAN CORPUSCULAR VOLUME 85.2 fl (80.0-96.0); PLATELET COUNT, AUTOMATED 218 10^3/uL (150-450); RED BLOOD COUNT 3.24 10^6/uL (4.30-6.10); RED CELL DISTRIBUTION WIDTH 14.3 % (11.5-14.5); WHITE BLOOD COUNT 9.4 10^3/uL (4.0-10.0)
[2017-10-05 06:06] LABS: ANION GAP 3 MEQ/L (8-16); BLOOD UREA NITROGEN 20 MG/DL (7-18); C REACTIVE PROTEIN QUANTITATIV 0.64 MG/DL (0.00-0.30); CALCIUM LEVEL 8.7 MG/DL (8.8-10.2); CARBON DIOXIDE LEVEL 26 MEQ/L (21-32); CHLORIDE LEVEL 110 MEQ/L (98-107); CREATININE FOR GFR 1.36 MG/DL (0.70-1.30); GLOMERULAR FILTRATION RATE 53.5 (>35); GLUCOSE, FASTING 109 MG/DL (70-100); MAGNESIUM LEVEL 2.2 MG/DL (1.8-2.4); POTASSIUM SERUM 4.3 MEQ/L (3.5-5.1); SODIUM LEVEL 139 MEQ/L (136-145)
[2017-10-05] MEDS: HumaLOG INSULIN (NovoLOG) PER UNIT SC ×4 (08:49→20:38)
[2017-10-05] MEDS: ASPIRIN 81 MG CHEW TABLET PO (08:50)
[2017-10-05] MEDS: PREGABALIN 50 MG CAP (LYRICA) PO (08:50)
[2017-10-05] MEDS: LEVEMIR (INSULIN DETEMIR) 1 UNITS/0.01ML SC (08:50)
[2017-10-05] MEDS: DABIGATRAN ETEXILATE 75 MG CAP (PRADAXA) PO ×2 (08:50→20:33)
[2017-10-05] MEDS: BENZONATATE 100 MG CAP PO ×3 (08:50→20:33)
[2017-10-05] MEDS: EZETIMIBE 10 MG TAB (ZETIA) PO (08:50)
[2017-10-05 13:02] LABS: BEDSIDE GLUCOSE 281 MG/DL (83-110)
[2017-10-05] MEDS: DAKIN'S 0.25% HALF-STRENGTH SOLN 480 ML TOP (14:46)
[2017-10-05 17:44] LABS: BEDSIDE GLUCOSE 166 MG/DL (83-110)
[2017-10-05] MEDS: ROSUVASTATIN 10 MG TAB (CRESTOR) PO (20:33)
[2017-10-06] MEDS: SLF 3 ML SYR IV ×3 (06:00→22:00)
[2017-10-06] MEDS: HumaLOG INSULIN (NovoLOG) PER UNIT SC ×4 (07:38→21:00)
[2017-10-06] MEDS: PREGABALIN 50 MG CAP (LYRICA) PO (08:30)
[2017-10-06] MEDS: EZETIMIBE 10 MG TAB (ZETIA) PO (08:30)
[2017-10-06] MEDS: DABIGATRAN ETEXILATE 75 MG CAP (PRADAXA) PO ×2 (08:30→21:15)
[2017-10-06] MEDS: ASPIRIN 81 MG CHEW TABLET PO (08:30)
[2017-10-06] MEDS: BENZONATATE 100 MG CAP PO ×3 (08:30→21:15)
[2017-10-06] MEDS: LEVEMIR (INSULIN DETEMIR) 1 UNITS/0.01ML SC ×2 (08:31→08:40)
[2017-10-06 08:44] LABS: BEDSIDE GLUCOSE 226 MG/DL (83-110)
[2017-10-06 11:44] LABS: HEMATOCRIT 28.2 % (42.0-52.0); HEMOGLOBIN 8.8 g/dl (13.5-17.5); MEAN CORPUSCULAR HEMOGLOBIN 26.7 pg (27.0-33.0); MEAN CORPUSCULAR HGB CONC 31.2 g/dl (32.0-36.5); MEAN CORPUSCULAR VOLUME 85.7 fl (80.0-96.0); PLATELET COUNT, AUTOMATED 210 10^3/uL (150-450); RED BLOOD COUNT 3.29 10^6/uL (4.30-6.10); RED CELL DISTRIBUTION WIDTH 14.4 % (11.5-14.5); WHITE BLOOD COUNT 12.9 10^3/uL (4.0-10.0)
[2017-10-06 11:54] LABS: BEDSIDE GLUCOSE 313 MG/DL (83-110)
[2017-10-06 12:35] LABS: ANION GAP 9 MEQ/L (8-16); BLOOD UREA NITROGEN 24 MG/DL (7-18); CALCIUM LEVEL 8.3 MG/DL (8.8-10.2); CARBON DIOXIDE LEVEL 24 MEQ/L (21-32); CHLORIDE LEVEL 106 MEQ/L (98-107); CREATININE FOR GFR 1.49 MG/DL (0.70-1.30); GLOMERULAR FILTRATION RATE 48.2 (>35); GLUCOSE, FASTING 256 MG/DL (70-100); MAGNESIUM LEVEL 2.2 MG/DL (1.8-2.4); POTASSIUM SERUM 4.7 MEQ/L (3.5-5.1); SODIUM LEVEL 139 MEQ/L (136-145)
[2017-10-06] MEDS: CEFTAROLINE FOSAMIL 600 MG in D5W MINI-BAG PLUS 50 ML IV (15:18)
[2017-10-06 15:24] LABS: C REACTIVE PROTEIN QUANTITATIV 1.19 MG/DL (0.00-0.30)
[2017-10-06 17:01] LABS: BEDSIDE GLUCOSE 269 MG/DL (83-110)
[2017-10-06] MEDS: ROSUVASTATIN 10 MG TAB (CRESTOR) PO (21:16)
[2017-10-07] MEDS: CEFTAROLINE FOSAMIL 600 MG in D5W MINI-BAG PLUS 50 ML IV ×2 (02:37→15:04)
[2017-10-07] MEDS: SLF 3 ML SYR IV ×3 (05:21→21:11)
[2017-10-07 05:40] LABS: HEMATOCRIT 26.9 % (42.0-52.0); HEMOGLOBIN 8.4 g/dl (13.5-17.5); MEAN CORPUSCULAR HEMOGLOBIN 26.4 pg (27.0-33.0); MEAN CORPUSCULAR HGB CONC 31.2 g/dl (32.0-36.5); MEAN CORPUSCULAR VOLUME 84.6 fl (80.0-96.0); PLATELET COUNT, AUTOMATED 224 10^3/uL (150-450); RED BLOOD COUNT 3.18 10^6/uL (4.30-6.10); RED CELL DISTRIBUTION WIDTH 14.3 % (11.5-14.5); WHITE BLOOD COUNT 9.9 10^3/uL (4.0-10.0)
[2017-10-07 05:56] LABS: ANION GAP 6 MEQ/L (8-16); BLOOD UREA NITROGEN 22 MG/DL (7-18); C REACTIVE PROTEIN QUANTITATIV 1.43 MG/DL (0.00-0.30); CALCIUM LEVEL 8.6 MG/DL (8.8-10.2); CARBON DIOXIDE LEVEL 24 MEQ/L (21-32); CHLORIDE LEVEL 107 MEQ/L (98-107); CREATININE FOR GFR 1.52 MG/DL (0.70-1.30); GLOMERULAR FILTRATION RATE 47.1 (>35); GLUCOSE, FASTING 156 MG/DL (70-100); MAGNESIUM LEVEL 2.2 MG/DL (1.8-2.4); POTASSIUM SERUM 4.4 MEQ/L (3.5-5.1); SODIUM LEVEL 137 MEQ/L (136-145)
[2017-10-07] MEDS: HumaLOG INSULIN (NovoLOG) PER UNIT SC ×4 (09:23→21:11)
[2017-10-07] MEDS: PREGABALIN 50 MG CAP (LYRICA) PO (09:24)
[2017-10-07] MEDS: EZETIMIBE 10 MG TAB (ZETIA) PO (09:24)
[2017-10-07] MEDS: BENZONATATE 100 MG CAP PO ×3 (09:24→21:11)
[2017-10-07] MEDS: ASPIRIN 81 MG CHEW TABLET PO (09:24)
[2017-10-07] MEDS: LEVEMIR (INSULIN DETEMIR) 1 UNITS/0.01ML SC (09:24)
[2017-10-07] MEDS: DABIGATRAN ETEXILATE 75 MG CAP (PRADAXA) PO ×2 (09:24→21:11)
[2017-10-07] MEDS: ROSUVASTATIN 10 MG TAB (CRESTOR) PO (21:10)
[2017-10-08] MEDS: CEFTAROLINE FOSAMIL 600 MG in D5W MINI-BAG PLUS 50 ML IV ×2 (03:27→15:54)
[2017-10-08 05:59] LABS: HEMATOCRIT 28.4 % (42.0-52.0); HEMOGLOBIN 8.8 g/dl (13.5-17.5); MEAN CORPUSCULAR HEMOGLOBIN 26.5 pg (27.0-33.0); MEAN CORPUSCULAR VOLUME 85.5 fl (80.0-96.0); PLATELET COUNT, AUTOMATED 214 10^3/uL (150-450); RED BLOOD COUNT 3.32 10^6/uL (4.30-6.10); RED CELL DISTRIBUTION WIDTH 14.3 % (11.5-14.5); WHITE BLOOD COUNT 10.5 10^3/uL (4.0-10.0)
[2017-10-08] MEDS: SLF 3 ML SYR IV ×3 (06:06→21:00)
[2017-10-08 06:21] LABS: ANION GAP 6 MEQ/L (8-16); BLOOD UREA NITROGEN 25 MG/DL (7-18); CALCIUM LEVEL 8.8 MG/DL (8.8-10.2); CARBON DIOXIDE LEVEL 25 MEQ/L (21-32); CHLORIDE LEVEL 106 MEQ/L (98-107); CREATININE FOR GFR 1.56 MG/DL (0.70-1.30); GLOMERULAR FILTRATION RATE 45.7 (>35); GLUCOSE, FASTING 194 MG/DL (70-100); MAGNESIUM LEVEL 2.2 MG/DL (1.8-2.4); POTASSIUM SERUM 4.4 MEQ/L (3.5-5.1); SODIUM LEVEL 137 MEQ/L (136-145)
[2017-10-08] MEDS: HumaLOG INSULIN (NovoLOG) PER UNIT SC ×5 (07:30→20:57)
[2017-10-08] MEDS: LEVEMIR (INSULIN DETEMIR) 1 UNITS/0.01ML SC ×3 (08:23→12:26)
[2017-10-08] MEDS: EZETIMIBE 10 MG TAB (ZETIA) PO (08:24)
[2017-10-08] MEDS: DABIGATRAN ETEXILATE 75 MG CAP (PRADAXA) PO ×2 (08:24→20:57)
[2017-10-08] MEDS: ASPIRIN 81 MG CHEW TABLET PO (08:24)
[2017-10-08] MEDS: BENZONATATE 100 MG CAP PO ×3 (08:24→20:57)
[2017-10-08] MEDS: PREGABALIN 50 MG CAP (LYRICA) PO (08:24)
[2017-10-08 12:13] LABS: BEDSIDE GLUCOSE 487 MG/DL (83-110)
[2017-10-08 16:53] LABS: BEDSIDE GLUCOSE 267 MG/DL (83-110)
[2017-10-08 20:51] LABS: BEDSIDE GLUCOSE 232 MG/DL (83-110)
[2017-10-08] MEDS: ROSUVASTATIN 10 MG TAB (CRESTOR) PO (20:57)
[2017-10-09] MEDS: CEFTAROLINE FOSAMIL 600 MG in D5W MINI-BAG PLUS 50 ML IV ×2 (03:41→15:21)
[2017-10-09] MEDS: SLF 3 ML SYR IV ×3 (04:59→22:06)
[2017-10-09 06:39] LABS: HEMATOCRIT 27.5 % (42.0-52.0); HEMOGLOBIN 8.8 g/dl (13.5-17.5); MEAN CORPUSCULAR HEMOGLOBIN 27.1 pg (27.0-33.0); MEAN CORPUSCULAR VOLUME 84.6 fl (80.0-96.0); PLATELET COUNT, AUTOMATED 233 10^3/uL (150-450); RED BLOOD COUNT 3.25 10^6/uL (4.30-6.10); RED CELL DISTRIBUTION WIDTH 14.2 % (11.5-14.5); WHITE BLOOD COUNT 8.7 10^3/uL (4.0-10.0)
[2017-10-09 06:55] LABS: ANION GAP 5 MEQ/L (8-16); BLOOD UREA NITROGEN 25 MG/DL (7-18); CALCIUM LEVEL 8.9 MG/DL (8.8-10.2); CARBON DIOXIDE LEVEL 26 MEQ/L (21-32); CHLORIDE LEVEL 108 MEQ/L (98-107); CREATININE FOR GFR 1.59 MG/DL (0.70-1.30); GLOMERULAR FILTRATION RATE 44.7 (>35); GLUCOSE, FASTING 165 MG/DL (70-100); MAGNESIUM LEVEL 2.1 MG/DL (1.8-2.4); POTASSIUM SERUM 4.5 MEQ/L (3.5-5.1); SODIUM LEVEL 139 MEQ/L (136-145)
[2017-10-09] MEDS: HumaLOG INSULIN (NovoLOG) PER UNIT SC ×4 (07:30→21:00)
[2017-10-09] MEDS: LEVEMIR (INSULIN DETEMIR) 1 UNITS/0.01ML SC (09:00)
[2017-10-09] MEDS: EZETIMIBE 10 MG TAB (ZETIA) PO (10:10)
[2017-10-09] MEDS: BENZONATATE 100 MG CAP PO ×3 (10:10→22:04)
[2017-10-09] MEDS: DABIGATRAN ETEXILATE 75 MG CAP (PRADAXA) PO ×2 (10:10→22:05)
[2017-10-09] MEDS: ASPIRIN 81 MG CHEW TABLET PO (10:10)
[2017-10-09] MEDS: PREGABALIN 50 MG CAP (LYRICA) PO (10:10)
[2017-10-09 11:50] LABS: BEDSIDE GLUCOSE 256 MG/DL (83-110)
[2017-10-09 16:50] LABS: BEDSIDE GLUCOSE 185 MG/DL (83-110)
[2017-10-09] MEDS ORDERED: PROPOFOL 200 MG/20 ML VIAL As Ordered (17:05)
[2017-10-09] MEDS ORDERED: MIDAZOLAM INJ 2 MG/2 ML VIAL (J2250) As Ordered (17:06)
[2017-10-09] MEDS: LIDOCAINE 1% SDV INJ 30 ML VIAL As Ordered (17:51)
[2017-10-09] MEDS: BUPIVACAINE HCL 0.5% 30 ML VIAL As Ordered (17:51)
[2017-10-09] MEDS: LR 1,000 ML IV (18:30)
[2017-10-09] MEDS ORDERED: ONDANSETRON 4MG/2ML VIAL (J2405) IV (18:30)
[2017-10-09] MEDS ORDERED: fentaNYL 100 MCG/2 ML INJECTION (J3010) IV (18:30)
[2017-10-09] MEDS ORDERED: PERCOCET 5MG/325MG TAB PO (18:30)
[2017-10-09 21:14] LABS: BEDSIDE GLUCOSE 240 MG/DL (83-110)
[2017-10-09] MEDS: ROSUVASTATIN 10 MG TAB (CRESTOR) PO (22:04)
[2017-10-10] MEDS: CEFTAROLINE FOSAMIL 600 MG in D5W MINI-BAG PLUS 50 ML IV ×2 (02:41→15:07)
[2017-10-10] MEDS: SLF 3 ML SYR IV ×3 (02:42→21:24)
[2017-10-10 06:24] LABS: BEDSIDE GLUCOSE 217 MG/DL (83-110)
[2017-10-10] MEDS: BENZONATATE 100 MG CAP PO ×3 (07:58→21:24)
[2017-10-10] MEDS: ASPIRIN 81 MG CHEW TABLET PO (07:58)
[2017-10-10] MEDS: EZETIMIBE 10 MG TAB (ZETIA) PO (07:59)
[2017-10-10] MEDS: PREGABALIN 50 MG CAP (LYRICA) PO (07:59)
[2017-10-10] MEDS: HumaLOG INSULIN (NovoLOG) PER UNIT SC ×4 (08:00→21:00)
[2017-10-10] MEDS: DABIGATRAN ETEXILATE 75 MG CAP (PRADAXA) PO ×2 (08:00→21:24)
[2017-10-10] MEDS: LEVEMIR (INSULIN DETEMIR) 1 UNITS/0.01ML SC (08:01)
[2017-10-10 12:20] LABS: BEDSIDE GLUCOSE 169 MG/DL (83-110)
[2017-10-10 16:50] LABS: BEDSIDE GLUCOSE 101 MG/DL (83-110)
[2017-10-10 20:22] LABS: BEDSIDE GLUCOSE 229 MG/DL (83-110)
[2017-10-10] MEDS: guaiFENesin ER 600 MG TAB PO (21:24)
[2017-10-10] MEDS: ROSUVASTATIN 10 MG TAB (CRESTOR) PO (21:24)
[2017-10-11] MEDS: CEFTAROLINE FOSAMIL 600 MG in D5W MINI-BAG PLUS 50 ML IV (02:55)
[2017-10-11] MEDS: SLF 3 ML SYR IV ×3 (02:56→22:00)
[2017-10-11 09:17] LABS: HEMATOCRIT 30.5 % (42.0-52.0); HEMOGLOBIN 9.5 g/dl (13.5-17.5); MEAN CORPUSCULAR HEMOGLOBIN 26.5 pg (27.0-33.0); MEAN CORPUSCULAR HGB CONC 31.1 g/dl (32.0-36.5); MEAN CORPUSCULAR VOLUME 85.2 fl (80.0-96.0); PLATELET COUNT, AUTOMATED 217 10^3/uL (150-450); RED BLOOD COUNT 3.58 10^6/uL (4.30-6.10); RED CELL DISTRIBUTION WIDTH 14.5 % (11.5-14.5); WHITE BLOOD COUNT 8.2 10^3/uL (4.0-10.0)
[2017-10-11] MEDS: EZETIMIBE 10 MG TAB (ZETIA) PO (09:40)
[2017-10-11] MEDS: ASPIRIN 81 MG CHEW TABLET PO (09:41)
[2017-10-11] MEDS: guaiFENesin ER 600 MG TAB PO ×2 (09:41→21:43)
[2017-10-11] MEDS: BENZONATATE 100 MG CAP PO ×3 (09:41→21:43)
[2017-10-11] MEDS: PREGABALIN 50 MG CAP (LYRICA) PO (09:41)
[2017-10-11 10:04] LABS: ANION GAP 7 MEQ/L (8-16); BLOOD UREA NITROGEN 21 MG/DL (7-18); C REACTIVE PROTEIN QUANTITATIV 0.45 MG/DL (0.00-0.30); CALCIUM LEVEL 8.6 MG/DL (8.8-10.2); CARBON DIOXIDE LEVEL 26 MEQ/L (21-32); CHLORIDE LEVEL 108 MEQ/L (98-107); CREATININE FOR GFR 1.67 MG/DL (0.70-1.30); GLOMERULAR FILTRATION RATE 42.2 (>35); GLUCOSE, FASTING 247 MG/DL (70-100); MAGNESIUM LEVEL 2.1 MG/DL (1.8-2.4); POTASSIUM SERUM 4.8 MEQ/L (3.5-5.1); SODIUM LEVEL 141 MEQ/L (136-145)
[2017-10-11] MEDS: HumaLOG INSULIN (NovoLOG) PER UNIT SC ×5 (10:19→21:00)
[2017-10-11] MEDS: LEVEMIR (INSULIN DETEMIR) 1 UNITS/0.01ML SC (10:19)
[2017-10-11 12:04] LABS: BEDSIDE GLUCOSE 243 MG/DL (83-110)
[2017-10-11] MEDS: DABIGATRAN ETEXILATE 75 MG CAP (PRADAXA) PO ×2 (13:21→21:43)
[2017-10-11] MEDS: LevoFLOXacin IV 750 MG in APPROPRIATE DILUENT 1 EA IV (13:22)
[2017-10-11 16:50] LABS: BEDSIDE GLUCOSE 138 MG/DL (83-110)
[2017-10-11 20:28] LABS: BEDSIDE GLUCOSE 220 MG/DL (83-110)
[2017-10-11] MEDS: ROSUVASTATIN 10 MG TAB (CRESTOR) PO (21:43)
[2017-10-12] MEDS: SLF 3 ML SYR IV ×3 (05:16→21:56)
[2017-10-12 06:34] LABS: BEDSIDE GLUCOSE 240 MG/DL (83-110)
[2017-10-12] MEDS: PREGABALIN 50 MG CAP (LYRICA) PO (08:15)
[2017-10-12] MEDS: EZETIMIBE 10 MG TAB (ZETIA) PO (08:15)
[2017-10-12] MEDS: LEVEMIR (INSULIN DETEMIR) 1 UNITS/0.01ML SC (08:16)
[2017-10-12] MEDS: guaiFENesin ER 600 MG TAB PO ×2 (08:16→20:26)
[2017-10-12] MEDS: DABIGATRAN ETEXILATE 75 MG CAP (PRADAXA) PO ×2 (08:16→20:26)
[2017-10-12] MEDS: ASPIRIN 81 MG CHEW TABLET PO (08:16)
[2017-10-12] MEDS: HumaLOG INSULIN (NovoLOG) PER UNIT SC ×4 (08:17→21:00)
[2017-10-12] MEDS: BENZONATATE 100 MG CAP PO ×3 (09:00→20:26)
[2017-10-12 12:02] LABS: BEDSIDE GLUCOSE 246 MG/DL (83-110)
[2017-10-12 16:35] LABS: BEDSIDE GLUCOSE 304 MG/DL (83-110)
[2017-10-12] MEDS: ROSUVASTATIN 10 MG TAB (CRESTOR) PO (20:26)
[2017-10-12 21:30] LABS: BEDSIDE GLUCOSE 164 MG/DL (83-110)
[2017-10-13] MEDS: SLF 3 ML SYR IV ×3 (05:27→21:10)
[2017-10-13 06:51] LABS: BASO # 0.1 10^3/uL (0.0-0.2); BASO % 0.5 % (0.0-1.0); EOS # 0.3 10^3/uL (0.0-0.50); EOS % 2.4 % (0.0-3.0); HEMATOCRIT 30.1 % (42.0-52.0); HEMOGLOBIN 9.3 g/dl (13.5-17.5); IMMATURE GRANULOCYTE % 0.5 % (0-3.0); LYMPH # 1.6 10^3/uL (1.5-4.5); LYMPH % 13.2 % (24.0-44.0); MEAN CORPUSCULAR HEMOGLOBIN 26.1 pg (27.0-33.0); MEAN CORPUSCULAR HGB CONC 30.9 g/dl (32.0-36.5); MEAN CORPUSCULAR VOLUME 84.3 fl (80.0-96.0); NEUTROPHILS # 9.3 10^3/uL (1.8-7.7); NEUTROPHILS % 75.4 % (36.0-66.0); PLATELET COUNT, AUTOMATED 222 10^3/uL (150-450); RED BLOOD COUNT 3.57 10^6/uL (4.30-6.10); RED CELL DISTRIBUTION WIDTH 14.5 % (11.5-14.5); WHITE BLOOD COUNT 12.3 10^3/uL (4.0-10.0)
[2017-10-13 07:12] LABS: ANION GAP 7 MEQ/L (8-16); BLOOD UREA NITROGEN 23 MG/DL (7-18); C REACTIVE PROTEIN QUANTITATIV < 0.30 MG/DL (0.00-0.30); CALCIUM LEVEL 8.9 MG/DL (8.8-10.2); CARBON DIOXIDE LEVEL 26 MEQ/L (21-32); CHLORIDE LEVEL 110 MEQ/L (98-107); GLOMERULAR FILTRATION RATE 44.4 (>35); GLUCOSE, FASTING 137 MG/DL (70-100); MAGNESIUM LEVEL 2.1 MG/DL (1.8-2.4); POTASSIUM SERUM 4.7 MEQ/L (3.5-5.1); SODIUM LEVEL 143 MEQ/L (136-145)
[2017-10-13] MEDS: HumaLOG INSULIN (NovoLOG) PER UNIT SC ×4 (09:24→21:00)
[2017-10-13] MEDS: ASPIRIN 81 MG CHEW TABLET PO (09:24)
[2017-10-13] MEDS: DABIGATRAN ETEXILATE 75 MG CAP (PRADAXA) PO ×2 (09:25→21:10)
[2017-10-13] MEDS: EZETIMIBE 10 MG TAB (ZETIA) PO (09:25)
[2017-10-13] MEDS: guaiFENesin ER 600 MG TAB PO ×2 (09:25→21:10)
[2017-10-13] MEDS: BENZONATATE 100 MG CAP PO ×3 (09:25→21:10)
[2017-10-13] MEDS: PREGABALIN 50 MG CAP (LYRICA) PO (09:26)
[2017-10-13] MEDS: LEVEMIR (INSULIN DETEMIR) 1 UNITS/0.01ML SC (09:26)
[2017-10-13 11:59] LABS: BEDSIDE GLUCOSE 255 MG/DL (83-110)
[2017-10-13] MEDS: LevoFLOXacin 750 MG TABLET PO (13:28)
[2017-10-13 17:45] LABS: BEDSIDE GLUCOSE 209 MG/DL (83-110)
[2017-10-13 21:07] LABS: BEDSIDE GLUCOSE 85 MG/DL (83-110)
[2017-10-13] MEDS: ROSUVASTATIN 10 MG TAB (CRESTOR) PO (21:11)
[2017-10-14] MEDS: SLF 3 ML SYR IV ×3 (06:04→22:00)
[2017-10-14 07:47] LABS: BASO % 0.4 % (0.0-1.0); EOS # 0.3 10^3/uL (0.0-0.50); EOS % 2.5 % (0.0-3.0); HEMATOCRIT 30.5 % (42.0-52.0); HEMOGLOBIN 9.5 g/dl (13.5-17.5); IMMATURE GRANULOCYTE % 0.4 % (0-3.0); LYMPH # 1.3 10^3/uL (1.5-4.5); LYMPH % 12.6 % (24.0-44.0); MEAN CORPUSCULAR HEMOGLOBIN 26.5 pg (27.0-33.0); MEAN CORPUSCULAR HGB CONC 31.1 g/dl (32.0-36.5); MEAN CORPUSCULAR VOLUME 85.2 fl (80.0-96.0); MONO % 9.5 % (0.0-5.0); NEUTROPHILS # 7.4 10^3/uL (1.8-7.7); NEUTROPHILS % 74.6 % (36.0-66.0); PLATELET COUNT, AUTOMATED 228 10^3/uL (150-450); RED BLOOD COUNT 3.58 10^6/uL (4.30-6.10); RED CELL DISTRIBUTION WIDTH 14.4 % (11.5-14.5)
[2017-10-14 07:59] LABS: ANION GAP 4 MEQ/L (8-16); BLOOD UREA NITROGEN 23 MG/DL (7-18); C REACTIVE PROTEIN QUANTITATIV 0.41 MG/DL (0.00-0.30); CARBON DIOXIDE LEVEL 27 MEQ/L (21-32); CHLORIDE LEVEL 108 MEQ/L (98-107); CREATININE FOR GFR 1.72 MG/DL (0.70-1.30); GLOMERULAR FILTRATION RATE 40.8 (>35); GLUCOSE, FASTING 239 MG/DL (70-100); MAGNESIUM LEVEL 2.2 MG/DL (1.8-2.4); POTASSIUM SERUM 4.7 MEQ/L (3.5-5.1); SODIUM LEVEL 139 MEQ/L (136-145)
[2017-10-14] MEDS: guaiFENesin ER 600 MG TAB PO ×2 (08:52→21:00)
[2017-10-14] MEDS: ASPIRIN 81 MG CHEW TABLET PO (08:52)
[2017-10-14] MEDS: PREGABALIN 50 MG CAP (LYRICA) PO (08:52)
[2017-10-14] MEDS: LEVEMIR (INSULIN DETEMIR) 1 UNITS/0.01ML SC (08:53)
[2017-10-14] MEDS: EZETIMIBE 10 MG TAB (ZETIA) PO (08:53)
[2017-10-14] MEDS: BENZONATATE 100 MG CAP PO ×3 (08:53→21:00)
[2017-10-14] MEDS: HumaLOG INSULIN (NovoLOG) PER UNIT SC ×4 (08:54→21:00)
[2017-10-14] MEDS: DABIGATRAN ETEXILATE 75 MG CAP (PRADAXA) PO ×2 (08:54→21:00)
[2017-10-14 11:44] LABS: BEDSIDE GLUCOSE 303 MG/DL (83-110)
[2017-10-14] MEDS ORDERED: IPRATROPIUM 0.5MG/ALBUTEROL 2.5MG INH SOL UD 3ML (DUONEB)(J7620) NEB (12:45)
[2017-10-14 16:38] LABS: BEDSIDE GLUCOSE 131 MG/DL (83-110)
[2017-10-14] MEDS: ROSUVASTATIN 10 MG TAB (CRESTOR) PO (21:00)
[2017-10-14 21:10] LABS: BEDSIDE GLUCOSE 96 MG/DL (83-110)
[2017-10-15] MEDS: LevoFLOXacin 750 MG TABLET PO (06:06)
[2017-10-15] MEDS: SLF 3 ML SYR IV ×2 (06:07→13:25)
[2017-10-15 06:28] LABS: BASO # 0.1 10^3/uL (0.0-0.2); BASO % 0.4 % (0.0-1.0); EOS # 0.4 10^3/uL (0.0-0.50); EOS % 3.6 % (0.0-3.0); IMMATURE GRANULOCYTE % 0.3 % (0-3.0); LYMPH % 17.1 % (24.0-44.0); MEAN CORPUSCULAR HEMOGLOBIN 26.2 pg (27.0-33.0); MEAN CORPUSCULAR HGB CONC 31.3 g/dl (32.0-36.5); MONO % 8.3 % (0.0-5.0); NEUTROPHILS # 8.1 10^3/uL (1.8-7.7); NEUTROPHILS % 70.3 % (36.0-66.0); PLATELET COUNT, AUTOMATED 235 10^3/uL (150-450); RED BLOOD COUNT 3.81 10^6/uL (4.30-6.10); RED CELL DISTRIBUTION WIDTH 14.6 % (11.5-14.5); WHITE BLOOD COUNT 11.6 10^3/uL (4.0-10.0)
[2017-10-15 07:01] LABS: ANION GAP 8 MEQ/L (8-16); BLOOD UREA NITROGEN 26 MG/DL (7-18); C REACTIVE PROTEIN QUANTITATIV < 0.30 MG/DL (0.00-0.30); CALCIUM LEVEL 9.1 MG/DL (8.8-10.2); CARBON DIOXIDE LEVEL 27 MEQ/L (21-32); CHLORIDE LEVEL 107 MEQ/L (98-107); CREATININE FOR GFR 1.56 MG/DL (0.70-1.30); GLOMERULAR FILTRATION RATE 45.7 (>35); GLUCOSE, FASTING 108 MG/DL (70-100); POTASSIUM SERUM 4.6 MEQ/L (3.5-5.1); SODIUM LEVEL 142 MEQ/L (136-145)
[2017-10-15] MEDS: HumaLOG INSULIN (NovoLOG) PER UNIT SC ×2 (07:28→11:56)
[2017-10-15] MEDS: LEVEMIR (INSULIN DETEMIR) 1 UNITS/0.01ML SC (09:00)
[2017-10-15] MEDS: ASPIRIN 81 MG CHEW TABLET PO (09:17)
[2017-10-15] MEDS: BENZONATATE 100 MG CAP PO (09:17)
[2017-10-15] MEDS: guaiFENesin ER 600 MG TAB PO (09:17)
[2017-10-15] MEDS: DABIGATRAN ETEXILATE 75 MG CAP (PRADAXA) PO (09:18)
[2017-10-15] MEDS: EZETIMIBE 10 MG TAB (ZETIA) PO (09:18)
[2017-10-15] MEDS: PREGABALIN 50 MG CAP (LYRICA) PO (09:18)
[2017-10-15 11:37] LABS: BEDSIDE GLUCOSE 236 MG/DL (83-110)
== END 2017-10-15 14:00 | disposition home or self-care (01) | DRG 264 ==
LOC: M MS5PR 10-11 23:21 → M ED 12:43 → M MSPAV 10-08 22:21 → M PCU 09-19 15:03 → M ED INP 18:27
PROC: 0JBR0ZZ Excision of Left Foot Subcutaneous Tissue and Fascia, Open Approach (ICD-10-PCS; principal; 2017-10-09 16:30)
PROC: 0KBW0ZZ Excision of Left Foot Muscle, Open Approach (ICD-10-PCS; 2017-10-09 16:30)
PROC: 30233N1 Transfusion of Nonautologous Red Blood Cells into Peripheral Vein, Percutaneous Approach (ICD-10-PCS; 2017-10-09 17:59)
DX: I49.5 Sick sinus syndrome (principal); G93.41 Metabolic encephalopathy; J69.0 Pneumonitis due to inhalation of food and vomit; I50.22 Chronic systolic (congestive) heart failure; I13.0 Hypertensive heart and chronic kidney disease with heart failure and stage 1 through stage 4 chronic kidney disease, or unspecified chronic kidney disease; N18.3 Chronic kidney disease, stage 3 (moderate); I48.91 Unspecified atrial fibrillation; I25.2 Old myocardial infarction; E11.51 Type 2 diabetes mellitus with diabetic peripheral angiopathy without gangrene; F03.90 Unspecified dementia, unspecified severity, without behavioral disturbance, psychotic disturbance, mood disturbance, and anxiety; Z86.73 Personal history of transient ischemic attack (TIA), and cerebral infarction without residual deficits; B96.1 Klebsiella pneumoniae [K. pneumoniae] as the cause of diseases classified elsewhere; B97.29 Other coronavirus as the cause of diseases classified elsewhere; Z79.82 Long term (current) use of aspirin; Z79.899 Other long term (current) drug therapy; Z79.4 Long term (current) use of insulin; I25.10 Atherosclerotic heart disease of native coronary artery without angina pectoris; I73.9 Peripheral vascular disease, unspecified; E78.5 Hyperlipidemia, unspecified; Z95.1 Presence of aortocoronary bypass graft

== ENCOUNTER 2017-10-22 17:24 | Inpatient (IN) | payer OTHER ==
[2017-10-22 16:05] LABS: BASO % 0.2 % (0.0-1.0); EOS # 0.3 10^3/uL (0.0-0.50); EOS % 1.9 % (0.0-3.0); HEMATOCRIT 37.5 % (42.0-52.0); HEMOGLOBIN 11.5 g/dl (13.5-17.5); IMMATURE GRANULOCYTE % 0.6 % (0-3.0); MEAN CORPUSCULAR HEMOGLOBIN 25.7 pg (27.0-33.0); MEAN CORPUSCULAR HGB CONC 30.7 g/dl (32.0-36.5); MEAN CORPUSCULAR VOLUME 83.9 fl (80.0-96.0); MONO # 1.1 10^3/uL (0.0-0.8); MONO % 7.6 % (0.0-5.0); NEUTROPHILS # 11.9 10^3/uL (1.8-7.7); NEUTROPHILS % 82.7 % (36.0-66.0); PLATELET COUNT, AUTOMATED 224 10^3/uL (150-450); RED BLOOD COUNT 4.47 10^6/uL (4.30-6.10); RED CELL DISTRIBUTION WIDTH 14.9 % (11.5-14.5); WHITE BLOOD COUNT 14.4 10^3/uL (4.0-10.0)
[2017-10-22 16:16] LABS: INR 1.34; PROTHROMBIN TIME 16.9 SECONDS (12.4-14.5)
[2017-10-22 16:34] LABS: LACTIC ACID SEPSIS PROTOCOL 1.2 MMOL/L (0.4-2.0)
[2017-10-22 16:34] LABS: ALBUMIN 3.1 GM/DL (3.2-5.2); ALBUMIN/GLOBULIN RATIO 0.74 (1.00-1.93); ALKALINE PHOSPHATASE 197 U/L (45-117); ALT/SGPT 23 U/L (12-78); ANION GAP 6 MEQ/L (8-16); AST/SGOT 16 U/L (7-37); BILIRUBIN,DIRECT 0.1 MG/DL (0.0-0.2); BILIRUBIN,TOTAL 0.4 MG/DL (0.2-1.0); BLOOD UREA NITROGEN 39 MG/DL (7-18); CALCIUM LEVEL 9.3 MG/DL (8.8-10.2); CARBON DIOXIDE LEVEL 27 MEQ/L (21-32); CHLORIDE LEVEL 108 MEQ/L (98-107); CREATININE FOR GFR 2.75 MG/DL (0.70-1.30); GLOMERULAR FILTRATION RATE 23.8 (>35); GLUCOSE, FASTING 207 MG/DL (70-100); LIPASE 724 U/L (73-393); SODIUM LEVEL 141 MEQ/L (136-145); TOTAL PROTEIN 7.3 GM/DL (6.4-8.2)
[2017-10-22 16:49] LABS: POTASSIUM SERUM 5.6 MEQ/L (3.5-5.1)
[2017-10-22 17:12] LABS: CK-MB VALUE MASS 1.2 NG/ML (<3.6); CPK CREATINE PHOSPHOKINASE 21 U/L (39-308); MB/CK RELATIVE INDEX 5.71 (< OR =4); TROPONIN I < 0.02 NG/ML (< 0.10)
[2017-10-22 18:19] LABS: APPEARANCE, URINE CLEAR (CLEAR); BACTERIA, URINE AUTO NEGATIVE (NEGATIVE); BILIRUBIN, URINE AUTO NEGATIVE (NEGATIVE); BLOOD, URINE BLOOD NEGATIVE (NEGATIVE); COLOR, URINE YELLOW (YELLOW); GLUCOSE, URINE (UA) AUTO 3+ mg/dL (NEGATIVE); KETONE, URINE AUTO NEGATIVE (NEGATIVE); LEUKOCYTE ESTERASE, URINE AUTO NEGATIVE (NEGATIVE); MUCUS, URINE SMALL (NEGATIVE); NITRITE, URINE AUTO NEGATIVE (NEGATIVE); PROTEIN, URINE AUTO 1+ mg/dL (NEGATIVE); RBC, URINE AUTO 2 /HPF (0-3); SQUAMOUS EPITHELIAL CELL UR AU 0 /HPF (0-6); UROBILINOGEN, URINE AUTO 0.2 mg/dL (0.0-2.0); WBC, URINE AUTO 1 /HPF (0-3)
[2017-10-22] MEDS: NS 1,000 ML IV ×2 (18:28→19:33)
[2017-10-22] MEDS: metroNIDAZOLE 500 MG in APPROPRIATE DILUENT 1 EA IV (18:30)
[2017-10-22] MEDS ORDERED: CIPROFLOXACIN 400 MG in APPROPRIATE DILUENT 1 EA IV ×2 (18:30→21:00)
[2017-10-22] MEDS: NS 500 ML IV (18:30)
[2017-10-22] MEDS ORDERED: ACETAMINOPHEN 325 MG TAB PO (20:00)
[2017-10-22] MEDS ORDERED: GLUCOSE 4 GM CHEW TABLET PO (20:00)
[2017-10-22] MEDS ORDERED: GLUCAGON FOR INJ 1 MG VIAL (J1610) SC (20:00)
[2017-10-22] MEDS ORDERED: DEXTROSE 50% 50 ML SYRINGE IV (20:00)
[2017-10-22 20:33] LABS: POTASSIUM SERUM 5.3 MEQ/L (3.5-5.1)
[2017-10-22] MEDS: HumaLOG INSULIN (NovoLOG) PER UNIT SC (21:00)
[2017-10-22 23:02] LABS: BEDSIDE GLUCOSE 259 MG/DL (83-110)
[2017-10-22] MEDS: FAMOTIDINE IV BAG 20 MG in APPROPRIATE DILUENT 1 EA IV (23:33)
[2017-10-22] MEDS: DABIGATRAN ETEXILATE 75 MG CAP (PRADAXA) PO (23:33)
[2017-10-23] MEDS: CIPROFLOXACIN 400 MG in APPROPRIATE DILUENT 1 EA IV ×2 (00:21→23:48)
[2017-10-23] MEDS: metroNIDAZOLE 500 MG in APPROPRIATE DILUENT 1 EA IV ×3 (03:29→18:01)
[2017-10-23 06:41] LABS: BASO % 0.4 % (0.0-1.0); EOS # 0.4 10^3/uL (0.0-0.50); EOS % 5.4 % (0.0-3.0); HEMATOCRIT 32.2 % (42.0-52.0); HEMOGLOBIN 10.2 g/dl (13.5-17.5); IMMATURE GRANULOCYTE % 0.4 % (0-3.0); LYMPH # 1.3 10^3/uL (1.5-4.5); LYMPH % 16.3 % (24.0-44.0); MEAN CORPUSCULAR HEMOGLOBIN 25.8 pg (27.0-33.0); MEAN CORPUSCULAR HGB CONC 31.7 g/dl (32.0-36.5); MEAN CORPUSCULAR VOLUME 81.3 fl (80.0-96.0); MONO # 0.9 10^3/uL (0.0-0.8); MONO % 10.8 % (0.0-5.0); NEUTROPHILS # 5.3 10^3/uL (1.8-7.7); NEUTROPHILS % 66.7 % (36.0-66.0); PLATELET COUNT, AUTOMATED 192 10^3/uL (150-450); RED BLOOD COUNT 3.96 10^6/uL (4.30-6.10); RED CELL DISTRIBUTION WIDTH 14.7 % (11.5-14.5)
[2017-10-23 07:01] LABS: ANION GAP 8 MEQ/L (8-16); BLOOD UREA NITROGEN 34 MG/DL (7-18); CALCIUM LEVEL 8.4 MG/DL (8.8-10.2); CARBON DIOXIDE LEVEL 25 MEQ/L (21-32); CHLORIDE LEVEL 109 MEQ/L (98-107); GLOMERULAR FILTRATION RATE 34.3 (>35); GLUCOSE, FASTING 171 MG/DL (70-100); LIPASE 170 U/L (73-393); POTASSIUM SERUM 4.5 MEQ/L (3.5-5.1); SODIUM LEVEL 142 MEQ/L (136-145)
[2017-10-23] MEDS: HumaLOG INSULIN (NovoLOG) PER UNIT SC ×4 (08:35→21:00)
[2017-10-23] MEDS: DABIGATRAN ETEXILATE 75 MG CAP (PRADAXA) PO ×2 (08:36→21:47)
[2017-10-23] MEDS: CLOPIDOGREL 75 MG TAB PO (08:36)
[2017-10-23] MEDS: FAMOTIDINE IV BAG 20 MG in APPROPRIATE DILUENT 1 EA IV ×2 (08:36→21:48)
[2017-10-23] MEDS: NS 1,000 ML IV ×2 (08:36→12:58)
[2017-10-23] MEDS: PREGABALIN 50 MG CAP (LYRICA) PO (08:36)
[2017-10-23] MEDS: ASPIRIN 81 MG ENTERIC TAB PO (08:36)
[2017-10-23] MEDS: SANTYL OINT 30GM TOP (09:00)
[2017-10-23] MEDS: DIAPER RELIEF PASTE (DESITIN) 60GM TOP (09:00)
[2017-10-23 12:06] LABS: BEDSIDE GLUCOSE 109 MG/DL (83-110)
[2017-10-24] MEDS: metroNIDAZOLE 500 MG in APPROPRIATE DILUENT 1 EA IV ×2 (01:44→10:30)
[2017-10-24] MEDS: HumaLOG INSULIN (NovoLOG) PER UNIT SC ×4 (07:30→21:00)
[2017-10-24] MEDS: FAMOTIDINE IV BAG 20 MG in APPROPRIATE DILUENT 1 EA IV (09:00)
[2017-10-24] MEDS: DABIGATRAN ETEXILATE 75 MG CAP (PRADAXA) PO ×2 (09:24→21:08)
[2017-10-24] MEDS: ASPIRIN 81 MG ENTERIC TAB PO (09:25)
[2017-10-24] MEDS: CLOPIDOGREL 75 MG TAB PO (09:25)
[2017-10-24] MEDS: PREGABALIN 50 MG CAP (LYRICA) PO (09:25)
[2017-10-24 09:53] LABS: HEMATOCRIT 33.4 % (42.0-52.0); HEMOGLOBIN 10.5 g/dl (13.5-17.5); MEAN CORPUSCULAR HEMOGLOBIN 25.7 pg (27.0-33.0); MEAN CORPUSCULAR HGB CONC 31.4 g/dl (32.0-36.5); MEAN CORPUSCULAR VOLUME 81.9 fl (80.0-96.0); PLATELET COUNT, AUTOMATED 175 10^3/uL (150-450); RED BLOOD COUNT 4.08 10^6/uL (4.30-6.10); RED CELL DISTRIBUTION WIDTH 14.7 % (11.5-14.5); WHITE BLOOD COUNT 10.7 10^3/uL (4.0-10.0)
[2017-10-24 10:18] LABS: ANION GAP 6 MEQ/L (8-16); BLOOD UREA NITROGEN 24 MG/DL (7-18); CALCIUM LEVEL 8.7 MG/DL (8.8-10.2); CARBON DIOXIDE LEVEL 25 MEQ/L (21-32); CHLORIDE LEVEL 108 MEQ/L (98-107); CREATININE FOR GFR 1.87 MG/DL (0.70-1.30); GLOMERULAR FILTRATION RATE 37.1 (>35); GLUCOSE, FASTING 220 MG/DL (70-100); POTASSIUM SERUM 4.9 MEQ/L (3.5-5.1); SODIUM LEVEL 139 MEQ/L (136-145)
[2017-10-24] MEDS: NS 750 ML IV (11:15)
[2017-10-24] MEDS: FAMOTIDINE 20 MG TAB PO ×2 (15:19→21:08)
[2017-10-24] MEDS: SANTYL OINT 30GM TOP (15:19)
[2017-10-24] MEDS: metroNIDAZOLE (FLAGYL) 500 MG TAB PO ×2 (15:19→21:08)
[2017-10-24] MEDS: DIAPER RELIEF PASTE (DESITIN) 60GM TOP (15:20)
[2017-10-24 16:30] LABS: BEDSIDE GLUCOSE 348 MG/DL (83-110)
[2017-10-24] MEDS: CIPROFLOXACIN 250 MG TAB PO (17:30)
[2017-10-24] MEDS: NORCO, ANEXSIA 5/325MG TABLET (HYDROcodone/ACETAMINOPHEN) PO (21:08)
[2017-10-25] MEDS: CIPROFLOXACIN 250 MG TAB PO ×2 (06:00→06:45)
[2017-10-25] MEDS: metroNIDAZOLE (FLAGYL) 500 MG TAB PO ×3 (06:00→14:26)
[2017-10-25] MEDS: NORCO, ANEXSIA 5/325MG TABLET (HYDROcodone/ACETAMINOPHEN) PO (06:45)
[2017-10-25] MEDS: HumaLOG INSULIN (NovoLOG) PER UNIT SC ×2 (07:30→12:28)
[2017-10-25] MEDS: DIAPER RELIEF PASTE (DESITIN) 60GM TOP (09:55)
[2017-10-25] MEDS: DABIGATRAN ETEXILATE 75 MG CAP (PRADAXA) PO (10:25)
[2017-10-25] MEDS: ASPIRIN 81 MG ENTERIC TAB PO (10:25)
[2017-10-25] MEDS: PREGABALIN 50 MG CAP (LYRICA) PO (10:26)
[2017-10-25] MEDS: CLOPIDOGREL 75 MG TAB PO (10:27)
[2017-10-25] MEDS: FAMOTIDINE 20 MG TAB PO (10:27)
[2017-10-25 11:24] LABS: HEMATOCRIT 33.3 % (42.0-52.0); HEMOGLOBIN 10.6 g/dl (13.5-17.5); MEAN CORPUSCULAR HEMOGLOBIN 26.3 pg (27.0-33.0); MEAN CORPUSCULAR HGB CONC 31.8 g/dl (32.0-36.5); MEAN CORPUSCULAR VOLUME 82.6 fl (80.0-96.0); PLATELET COUNT, AUTOMATED 169 10^3/uL (150-450); RED BLOOD COUNT 4.03 10^6/uL (4.30-6.10); RED CELL DISTRIBUTION WIDTH 14.9 % (11.5-14.5); WHITE BLOOD COUNT 9.4 10^3/uL (4.0-10.0)
[2017-10-25 11:27] LABS: BEDSIDE GLUCOSE 291 MG/DL (83-110)
[2017-10-25 12:12] LABS: ANION GAP 9 MEQ/L (8-16); BLOOD UREA NITROGEN 22 MG/DL (7-18); CALCIUM LEVEL 8.4 MG/DL (8.8-10.2); CARBON DIOXIDE LEVEL 24 MEQ/L (21-32); CHLORIDE LEVEL 106 MEQ/L (98-107); CREATININE FOR GFR 1.71 MG/DL (0.70-1.30); GLOMERULAR FILTRATION RATE 41.1 (>35); GLUCOSE, FASTING 273 MG/DL (70-100); POTASSIUM SERUM 4.4 MEQ/L (3.5-5.1); SODIUM LEVEL 139 MEQ/L (136-145)
[2017-10-25] MEDS: SANTYL OINT 30GM TOP (12:28)
== END 2017-10-25 14:50 | disposition home or self-care (01) | DRG 392 ==
LOC: M MS5PR 10-24 14:17 → M ED 17:24 → M ED INP 19:33 → M MS5PR 22:38
DX: K57.32 Diverticulitis of large intestine without perforation or abscess without bleeding (principal); N17.9 Acute kidney failure, unspecified; E11.52 Type 2 diabetes mellitus with diabetic peripheral angiopathy with gangrene; N18.9 Chronic kidney disease, unspecified; I48.91 Unspecified atrial fibrillation; I25.10 Atherosclerotic heart disease of native coronary artery without angina pectoris; F03.90 Unspecified dementia, unspecified severity, without behavioral disturbance, psychotic disturbance, mood disturbance, and anxiety; Z79.01 Long term (current) use of anticoagulants; Z79.899 Other long term (current) drug therapy; Z79.82 Long term (current) use of aspirin; Z86.73 Personal history of transient ischemic attack (TIA), and cerebral infarction without residual deficits; I25.2 Old myocardial infarction; E87.5 Hyperkalemia

== ENCOUNTER → 2017-10-28 | Outpatient (REF) | payer OTHER | LOC: M LAB REF 15:24 | DX: I70.245 Atherosclerosis of native arteries of left leg with ulceration of other part of foot (principal); M85.872 Other specified disorders of bone density and structure, left ankle and foot | CPT/HCPCS: 88304 ==

== ENCOUNTER → 2017-11-08 | Outpatient (CLI) | payer OTHER ==
[~2017-11-08] MED LIST: HEPARIN 1,000 UNITS/ML 10ML VIAL (FOR RADIOLOGY& DIALYSIS ONLY) As Ordered; ISOVUE-300 61% 50ML VIAL (Q9967) As Ordered; MIDAZOLAM INJ 2 MG/2 ML VIAL (J2250) As Ordered; fentaNYL 100 MCG/2 ML INJECTION (J3010) As Ordered
== END | disposition home or self-care (01) ==
LOC: M IRPRO 06:16
DX: I70.245 Atherosclerosis of native arteries of left leg with ulceration of other part of foot (principal); L97.529 Non-pressure chronic ulcer of other part of left foot with unspecified severity; E11.22 Type 2 diabetes mellitus with diabetic chronic kidney disease; I12.9 Hypertensive chronic kidney disease with stage 1 through stage 4 chronic kidney disease, or unspecified chronic kidney disease; N18.9 Chronic kidney disease, unspecified; I25.10 Atherosclerotic heart disease of native coronary artery without angina pectoris; I48.91 Unspecified atrial fibrillation; Z95.1 Presence of aortocoronary bypass graft
CPT/HCPCS: 37225